=== PATIENT | male | born 1935 | race Caucasian/White ===

== ENCOUNTER → 2016-05-01 | Outpatient (CLI) | payer MEDICARE ==
[~2016-05-01] MED LIST: ACET-822 PO; APIX5TAB PO; ATOR10TA15 PO; OMEP20TA PO; PROC10TA PO; PROM1SUP7 RECTAL; TUMS500C CHEW; ZETI10TA5 PO; ZOFR4TAB3 SL
[2016-05-01 08:57] LABS: POTASSIUM 4.5 MEQ/L (3.5-5.1)
[2016-05-01 09:02] LABS: BICARBONATE 30.8 MEQ/L (21.0-32.0)
[2016-05-01 09:25] LABS: HEMATOCRIT 39.8 % (39.0-51.0); MEAN CELL VOLUME 89.3 FL (80.0-100.0); MEAN CORPUSCULAR HEMOGLOBIN 29.6 PG (27.0-34.0); MEAN CORPUSCULAR HGB CONC 33.2 % (32.0-36.0); PLATELET COUNT 187 TH/MM3 (150-450); RED BLOOD COUNT 4.46 MIL/MM3 (4.50-5.90); RED CELL DISTRIBUTION WIDTH 13.5 % (11.6-17.2); REVIEW FLAG FINAL; WHITE BLOOD COUNT 5.1 TH/MM3 (4.0-11.0)
== END ==
LOC: PLAB 07:01
DX: N28.89 Other specified disorders of kidney and ureter (principal)
CPT/HCPCS: 36415; 80048; 85027

== ENCOUNTER → 2016-07-01 | Outpatient (CLI) | payer MEDICARE ==
[2016-07-01 08:50] LABS: HEMATOCRIT 33.3 % (39.0-51.0); MEAN CELL VOLUME 88.1 FL (80.0-100.0); MEAN CORPUSCULAR HEMOGLOBIN 28.7 PG (27.0-34.0); MEAN CORPUSCULAR HGB CONC 32.5 % (32.0-36.0); PLATELET COUNT 212 TH/MM3 (150-450); RED BLOOD COUNT 3.78 MIL/MM3 (4.50-5.90); RED CELL DISTRIBUTION WIDTH 14.9 % (11.6-17.2); REVIEW FLAG FINAL; WHITE BLOOD COUNT 5.9 TH/MM3 (4.0-11.0)
[2016-07-01 09:07] LABS: BLOOD, URINE NEG (NEG); GLUCOSE,URINE NEG (NEG); KETONE, URINE NEG (NEG); MUCUS URINE FEW /lpf (OCC); NITRITE,URINE NEG (NEG); SQUAMOUS EPITHELIAL CELL URINE <1 /hpf (0-5); URINE COLOR YELLOW (YELLW/STRAW)
[2016-07-01 09:33] LABS: ALKALINE PHOSPHATASE 87 U/L (45-117); ALT (GPT) 25 U/L (12-78); ANION GAP 6 MEQ/L (5-15); AST (GOT) 17 U/L (15-37); BICARBONATE 30.2 MEQ/L (21.0-32.0); BLOOD UREA NITROGEN 14 MG/DL (7-18); CHLORIDE 106 MEQ/L (98-107); GLOMERULAR FILTRATION RATE 55 ML/MIN (>89); GLUCOSE,FASTING 106 MG/DL (74-99); LDL CHOLESTEROL 67 MG/DL (0-99); LDL CHOLESTEROL DIRECT 84 MG/DL (0-99); POTASSIUM 4.5 MEQ/L (3.5-5.1); SODIUM (NA) 142 MEQ/L (136-145); TOTAL BILIRUBIN ADULT 0.3 MG/DL (0.2-1.0); TRANSFERRIN IRON PROFILE 212 MG/DL (200-360)
== END ==
LOC: PLAB 06:54
PROVIDERS: ATTEND Internal Medicine
DX: D64.9 Anemia, unspecified (principal); I10 Essential (primary) hypertension; E78.5 Hyperlipidemia, unspecified
CPT/HCPCS: 36415; 80053; 80061; 81001; 83540; 83550; 83721; 85027

== ENCOUNTER 2016-07-06 15:11 | Observation (INO) | payer MEDICARE ==
[~2016-07-06] VITALS: Ht 172.7 cm; Wt 93.6 kg
[~2016-07-06 15:11] MED LIST changes: -ACET-822 PO; -PROM1SUP7 RECTAL; -TUMS500C CHEW
[2016-07-06 15:21] VITALS: PULSE 66; RESP 19; TEMP 98.4; O2SAT 98
[2016-07-06] MEDS ORDERED: diphenhydrAMINE HCL 50 MG/ML VIAL IV PUSH ONE (15:30)
[2016-07-06] MEDS ORDERED: SODIUM CHLOR 0.9% 1000 ML INJ 1,000 ML IV ONE (15:30)
[2016-07-06] MEDS ORDERED: PROCHLORPERAZINE INJ 10 MG/2 ML VIAL IVS ONE (15:30)
--- NOTE | 2016-07-06 15:54 | PD ---
HPI . Vomiting Chief Complaint: GI Complaint Time Seen by Provider: 15:25 Travel History International Travel<30 days: No Contact w/Intl Traveler<30days: No Traveled to known affect area: No History of Present Illness HPI Patient brought in by his with the chief complaint of vomiting every 30 minutes since 10 AM. The reports that the volume of the emesis is pretty low. She estimates 300-400 cc total. He denies any significant pain. He denies diarrhea. He states his last normal bowel movement was today. He has not been running a fever. Is pertinent recent past medical history is left nephrectomy with dissection of lymph nodes and removal of thrombosis. He was diagnosed with renal cell carcinoma is at the left medial lymph nodes so she renal vein and IVC thrombus in March. He underwent resection about 6 weeks ago. He had done well until today when he started vomiting. DURATION: 6 hours TIMING:Every 15 minutes CONTEXT: 6 weeks status post abdominal surgery ASSOCIATED SYMPTOMS: No associated symptoms PFSH Past Medical History Arthritis: No Asthma: No Autoimmune Disease: No Heart Rhythm Problems: Yes Cancer: No Cardiovascular Problems: Yes High Cholesterol: Yes Chemotherapy: No Chest Pain: No Congestive Heart Failure: No COPD: No Cerebrovascular Accident: No Diabetes: No Diminished Hearing: No Endocrine: No Gastrointestinal Disorders: Yes (HX RECTUS HEMATOMA) GERD: Yes Genitourinary: Yes Headaches: No Hiatal Hernia: Yes Heparin Induced Thrombocytopen: No Hypertension: No Immune Disorder: No Implanted Vascular Access Dvce: No Kidney Stones: Yes Musculoskeletal: No Neurologic: No Psychiatric: No Reproductive: Yes Respiratory: No Migraines: No Radiation Therapy: No Renal Failure: No Seizures: No Sickle Cell Disease: No Sleep Apnea: No Thyroid Disease: No Ulcer: No ?: Not Past Surgical History Abdominal Surgery: No AICD: No Arteriovenous Shunt: No Cardiac Surgery: Yes (LIGATION OF INFERIOR VENA CAVA) Ear Surgery: No Endocrine Surgery: No Eye Surgery: No Genitourinary Surgery: No Gynecologic Surgery: No Insulin Pump: No Neurologic Surgery: No Oral Surgery: No Pacemaker: No Thoracic Surgery: No Tonsillectomy: Yes Other Surgery: Yes Social History Alcohol Use: Yes (ONE DRINK DAILY) Tobacco Use: No (quit 4 years ago ) Substance Use: No Allergies-Medications (Allergen,Severity, Reaction): Coded Allergies: Propofol (Verified Allergy, Severe, NAUSEA AND VOMITING, 07/06/16) Reported Meds & Prescriptions Reported Meds & Active Scripts Active Prochlorperazine Maleate 10 Mg Tab 10 Mg PO Q6H PRN Reported Atorvastatin (Atorvastatin Calcium) 10 Mg Tab 10 Mg PO HS Omeprazole 20 Mg Tab 20 Mg PO DAILY Zetia (Ezetimibe) 10 Mg Tab 10 Mg PO DAILY Review of Systems Except as stated in HPI: all other systems reviewed are Neg General / Constitutional: No: Fever, Chills Cardiovascular: No: Chest Pain or Discomfort Respiratory: No: Shortness of Breath Gastrointestinal: Positive: Nausea, Vomiting, No: Diarrhea, Abdominal Pain Physical Exam Narrative GENERAL: Very pale. SKIN: Warm and dry. HEAD: Atraumatic. Normocephalic. EYES: Pupils equal and round. ENT: No nasal bleeding or discharge. Mucous membranes pink and moist. NECK: Trachea midline. Neck supple CARDIOVASCULAR: Regular rate and rhythm. RESPIRATORY: No accessory muscle use. GASTROINTESTINAL: Abdomen soft, non-tender, nondistended. Healing upper abdominal scar. MUSCULOSKELETAL: No obvious deformities. No edema. NEUROLOGICAL: Awake and alert. No obvious cranial nerve deficits. Motor grossly within normal limits. Normal speech. PSYCHIATRIC: Appropriate mood and affect; insight and judgment normal. Data Data Last Documented VS Vital Signs Date Time Temp Pulse Resp B/P Pulse Ox O2 Delivery O2 Flow Rate FiO2 07/06/16 15:21 98.4 66 19 98 Orders Sodium Chlor 0.9% 1000 Ml Inj (Ns 1000 M (07/06/16 15:30) Prochlorperazine Inj (Compazine Inj) (07/06/16 15:30) Diphenhydramine Inj (Benadryl Inj) (07/06/16 15:30) Complete Blood Count With Diff (07/06/16 15:46) Basic Metabolic Panel (Bmp) (07/06/16 15:46) Abdomen, Flat & Upright (07/06/16 ) Ondansetron Inj (Zofran Inj) (07/06/16 16:45) Labs Laboratory Tests Test 07/06/16 15:54 White Blood Count 5.8 TH/MM3 Red Blood Count 3.97 MIL/MM3 Hemoglobin 11.2 GM/DL Hematocrit 34.3 % Mean Corpuscular Volume 86.6 FL Mean Corpuscular Hemoglobin 28.2 PG Mean Corpuscular Hemoglobin 32.5 % Concent Red Cell Distribution Width 13.7 % Platelet Count 223 TH/MM3 Mean Platelet Volume 8.1 FL Neutrophils (%) (Auto) 70.8 % Lymphocytes (%) (Auto) 21.7 % Monocytes (%) (Auto) 4.7 % Eosinophils (%) (Auto) 1.4 % Basophils (%) (Auto) 1.4 % Neutrophils # (Auto) 4.0 TH/MM3 Lymphocytes # (Auto) 1.3 TH/MM3 Monocytes # (Auto) 0.3 TH/MM3 Eosinophils # (Auto) 0.1 TH/MM3 Basophils # (Auto) 0.1 TH/MM3 CBC Comment DIFF FINAL Differential Comment Sodium Level 142 MEQ/L Potassium Level 4.0 MEQ/L Chloride Level 105 MEQ/L Carbon Dioxide Level 25.3 MEQ/L Anion Gap 12 MEQ/L Blood Urea Nitrogen 20 MG/DL Creatinine 1.30 MG/DL Estimat Glomerular Filtration 53 ML/MIN Rate Random Glucose 154 MG/DL Calcium Level 9.3 MG/DL MDM Medical Decision Making Medical Screen Exam Complete: Yes Emergency Medical Condition: Yes Differential Diagnosis Differential diagnosis includes but is not limited to viral gastritis, food poisoning, pancreatitis, pneumonia, hepatitis, acute coronary syndrome, bowel obstruction Narrative Course Patient presents with frequent emesis. He has had recent surgery. The possibility of bowel obstruction needs to be excluded. CBC & BMP Diagram 07/06/16 15:54 Abdominal x-ray is negative for obstruction. The x-ray was independently viewed by me. The patient was treated here initially with Compazine and Benadryl. He continued to have nausea. He was subsequently treated with Zofran. He states he now feels better and is ready to go home. Diagnosis Primary Impression: Nausea & vomiting Qualified Code: R11.2 - Non-intractable vomiting with nausea, unspecified vomiting type Patient Instructions: Acute Nausea and Vomiting (DC), General Instructions Med/Other Pt SpecificInfo: Prescription(s) given Scripts Ondansetron Odt (Zofran Odt)4 Mg Tab4 Mg SL Q6HR PRN (Nausea/Vomiting) #30 TAB Ref 0 Prov:Grace Kendrick MD 07/06/16 Prochlorperazine Maleate 10 Mg Tab10 Mg PO Q6H PRN (NAUSEA OR VOMITING) #40 TAB Ref 0 Prov:Grace Kendrick MD 07/06/16 Disposition: 01 DISCHARGE HOME Condition: Stable Grace Kendrick MD Jul 06, 2016 15:54
[2016-07-06 16:03] LABS: BASOPHIL # 0.1 TH/MM3 (0-0.2); BASOPHIL % 1.4 % (0.0-2.0); EOSINOPHIL # 0.1 TH/MM3 (0-0.4); EOSINOPHIL % 1.4 % (0.0-4.0); HEMATOCRIT 34.3 % (39.0-51.0); HEMO FLAGS DIFF FINAL; LYMPH % 21.7 % (9.0-44.0); LYMPHOCYTE # 1.3 TH/MM3 (1.0-4.8); MEAN CELL VOLUME 86.6 FL (80.0-100.0); MEAN CORPUSCULAR HEMOGLOBIN 28.2 PG (27.0-34.0); MEAN CORPUSCULAR HGB CONC 32.5 % (32.0-36.0); MONO % 4.7 % (0.0-8.0); NEUT % 70.8 % (16.0-70.0); PLATELET COUNT 223 TH/MM3 (150-450); RED BLOOD COUNT 3.97 MIL/MM3 (4.50-5.90); RED CELL DISTRIBUTION WIDTH 13.7 % (11.6-17.2); WHITE BLOOD COUNT 5.8 TH/MM3 (4.0-11.0)
[2016-07-06 16:19] LABS: BICARBONATE 25.3 MEQ/L (21.0-32.0)
--- NOTE | 2016-07-06 16:33 | RADHPO ---
EXAM DATE/TIME: 07/06/2016 15:50 [facility] COMPARISON: ABDOMEN FLAT & UPRIGHT, August 10, 2013, 17:48. INDICATIONS : Nausea and vomiting today. Five weeks post op left side nephrectomy. MEDICAL HISTORY : None. SURGICAL HISTORY : Nephrectomy, left. ENCOUNTER: Initial ACUITY: 1 day PAIN SCORE: 0/10 LOCATION: Bilateral abdomen. FINDINGS: 2 AP supine views of the abdomen were obtained as well as an erect view demonstrates gas and stool no richard segmentally in the colon. There is no free air or mass effect. Multiple surgical clips and staple s in the upper central abdomen. The lung bases are clear. The bony structures are intact. There are v ascular calcifications. CONCLUSION: Nonspecific, nonobstructed bowel gas pattern. Ti Panchal MD on July 06, 2016 at 16:30 Board Certified Radiologist. This report was verified electronically.
[2016-07-06] MEDS ORDERED: ONDANSETRON HCL 4 MG/2 ML VIAL IV PUSH ONE ×2 (16:45→18:15)
[2016-07-06] MEDS ORDERED: PROC10TA PO (17:52)
[2016-07-06] MEDS ORDERED: ZOFR4TAB3 SL (17:52)
[2016-07-06 18:17] VITALS: BP 154/63; PULSE 75; RESP 16; O2SAT 99
[2016-07-06] MEDS ORDERED: hydrOXYzine HCL 50 MG/ML VIAL IM ONE (18:45)
[2016-07-06 19:00] VITALS: BP 157/80; PULSE 89; RESP 16; TEMP 98.1; O2SAT 99
[2016-07-06] MEDS ORDERED: SODIUM CHLORIDE 0.9% FLUSH 5 ML FLUSH FLUSH PRN (19:15)
[2016-07-06] MEDS ORDERED: ACETAMINOPHEN 325 MG TAB PO PRN (19:15)
[2016-07-06] MEDS ORDERED: MORPHINE SULFATE 4 MG/ML INJ IV PRN (19:15)
[2016-07-06] MEDS ORDERED: ACETAMINOPHEN/HYDROcodone 325 MG/5 MG TAB PO PRN (19:15)
[2016-07-06] MEDS ORDERED: BISACODYL 10 MG SUPP PR PRN (19:15)
[2016-07-06] MEDS ORDERED: ONDANSETRON HCL 4 MG/2 ML VIAL IVP PRN (19:15)
[2016-07-06] MEDS ORDERED: PROCHLORPERAZINE INJ 10 MG/2 ML VIAL IVS PRN (19:30)
[2016-07-06] MEDS: SODIUM CHLOR 0.9% 1000 ML INJ 1,000 ML IV SCH (21:32)
[2016-07-06] MEDS: PANTOPRAZOLE SODIUM 40 MG VIAL IV PUSH SCH (21:32)
[2016-07-06 21:33] VITALS: BP 167/82; PULSE 92; RESP 16; TEMP 97.7; O2SAT 94
[2016-07-06] MEDS: SODIUM CHLORIDE 0.9% FLUSH 5 ML FLUSH FLUSH SCH (21:33)
[2016-07-07 00:43] VITALS: BP 146/97; PULSE 98; RESP 18; TEMP 98.1; O2SAT 93
[2016-07-07] MEDS: SODIUM CHLOR 0.9% 1000 ML INJ 1,000 ML IV SCH (06:00)
[2016-07-07 06:49] LABS: CHLORIDE 107 MEQ/L (98-107); POTASSIUM 4.1 MEQ/L (3.5-5.1); SODIUM (NA) 143 MEQ/L (136-145)
[2016-07-07 06:54] LABS: ANION GAP 7 MEQ/L (5-15); BICARBONATE 28.6 MEQ/L (21.0-32.0); BLOOD UREA NITROGEN 16 MG/DL (7-18)
[2016-07-07 06:56] LABS: AUTOMATED NEUTROPHIL # 4.4 TH/MM3 (1.8-7.7); BASOPHIL % 0.6 % (0.0-2.0); EOSINOPHIL % 0.3 % (0.0-4.0); HEMATOCRIT 31.5 % (39.0-51.0); HEMO FLAGS DIFF FINAL; LYMPH % 23.5 % (9.0-44.0); LYMPHOCYTE # 1.5 TH/MM3 (1.0-4.8); MEAN CELL VOLUME 87.6 FL (80.0-100.0); MEAN CORPUSCULAR HEMOGLOBIN 28.9 PG (27.0-34.0); MONO % 7.3 % (0.0-8.0); NEUT % 68.3 % (16.0-70.0); PLATELET COUNT 219 TH/MM3 (150-450); RED CELL DISTRIBUTION WIDTH 14.6 % (11.6-17.2); WHITE BLOOD COUNT 6.4 TH/MM3 (4.0-11.0)
[2016-07-07 06:57] LABS: ALT (GPT) 17 U/L (12-78); AST (GOT) 13 U/L (15-37); GLOMERULAR FILTRATION RATE 65 ML/MIN (>89)
[2016-07-07 06:58] LABS: TOTAL BILIRUBIN ADULT 0.5 MG/DL (0.2-1.0)
[2016-07-07 07:00] LABS: ALKALINE PHOSPHATASE 76 U/L (45-117)
[2016-07-07] MEDS: PANTOPRAZOLE SODIUM 40 MG VIAL IV PUSH SCH (08:00)
[2016-07-07 08:27] VITALS: BP 142/77; PULSE 72; RESP 17; TEMP 98.7; O2SAT 92
[2016-07-07] MEDS: SODIUM CHLORIDE 0.9% FLUSH 5 ML FLUSH FLUSH SCH (09:00)
--- NOTE | 2016-07-07 09:33 | HHI.HP ---
[facility] [place] [facility] Lawrence Mata MD Admission Diagnosis intractable vomiting Diagnoses: (1) Nausea & vomiting Diagnosis: Principal Chief Complaint: Nausea vomiting Travel History International Travel<30 Days: No Contact w/Intl Traveler <30 Da: No Traveled to Known Affected Are: No History of Present Illness 81 year-old male with known history of renal adenocarcinoma, hyperlipidemia, hypertension, episodic nausea vomiting, gastroesophageal reflux who presented to the hospital because of recurrent nausea vomiting. Patient states that he does get episodes of this at least 1-2 times a year. The patient started 10 AM yesterday morning with nausea vomiting and it was relentless throughout the day so he came to emergency department for evaluation. Patient was given Zofran, Compazine, Benadryl in the emergency department with relief. However when he stood up to go home last evening he had another episode of nausea vomiting at that time it was requested that the patient be observed overnight in the hospital. Laboratory studies did not indicate any electrolyte abnormalities. Upon evaluating the patient this morning he is doing quite well. Very pleasant gentleman who finished breakfast without any complications. He is requesting go home. Review of Systems Constitutional: DENIES: Diaphoretic episodes, Fatigue, Fever, Weight gain, Weight loss, Chills, Dizziness, Change in appetite, Night Sweats Eyes: DENIES: Blurred vision, Diplopia, Eye inflammation, Eye pain, Vision loss , Double Vision Ears, nose, mouth, throat: DENIES: Vertigo, Nasal discharge, Throat pain, Ear Pain, Running Nose, Sinus Pain Respiratory: DENIES: Apneas, Cough, Snoring, Wheezing, Hemoptysis, Sputum production, Shortness of breath Cardiovascular: DENIES: Chest pain, Palpitations, Syncope, Dyspnea on Exertion , PND, Lower Extremity Edema, Orthopnea, Claudication Gastrointestinal: COMPLAINS OF: Nausea, Vomiting, DENIES: Abdominal pain, Black stools, Bloody stools, Constipation, Diarrhea, Difficulty Swallowing, Anorexia Neurologic: DENIES: Abnormal gait, Headache, Localized weakness, Paresthesias, Seizures, Speech Problems, Tremor, Poor Balance Past Family Social History Past Medical History Hypertension Hyperlipidemia Renal adenocarcinoma Gastroesophageal reflux History of DVT and PE Past Surgical History Tonsillectomy Left nephrectomy Ligation 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 Unknown cause of Social History Patient quit smoking a pipe 5 years ago, quit smoking cigarettes 40 years ago. Does drink 1 alcoholic beverage daily. Denies any illicit drugs Physical Exam Vital Signs Vital Signs Date Time Temp Pulse Resp B/P Pulse Ox O2 Delivery O2 Flow Rate FiO2 07/07/16 08:27 98.7 72 17 142/77 92 07/07/16 00:43 98.1 98 18 146/97 93 07/06/16 21:33 97.7 92 16 167/82 94 07/06/16 19:00 98.1 89 16 157/80 99 Room Air 07/06/16 18:17 75 16 154/63 99 Room Air 07/06/16 15:21 98.4 66 19 98 Physical Exam GENERAL: Well-developed, well-nourished, in no acute distress. alert and orientated HEENT: Head is normocephalic without any lesions or masses noted. Facial features are symmetric. Eyes: Pupils equal round reactive to light. Extraocular muscles are intact. Conjunctivae were clear. Oropharyngeal: Pharynx without any erythema edema. Tongue is midline without deviation. Buccal mucosa is moist without any masses or lesions NECK: Supple without any masses. Trachea midline no deviation. No JVD, no bruits are appreciated CARDIAC: Regular rhythm, regular rate. S1/S2 are heard. No murmurs gallops or rubs. LUNGS: Clear to auscultation bilaterally. No wheeze, rhonchi or rales. No use of accessory muscles on inspiration or expiration. ABDOMEN: Soft, nontender. Nondistended. Bowel sounds heard in all 4 quadrants. No organomegaly or masses. Negative rebound, negative guarding EXTREMITIES: No edema, pulses are equal bilaterally. No cyanosis or clubbing NEUROLOGY: Mood and affect appear appropriate. Cranial nerves II through XII grossly intact. Muscle strength 5/5 in upper and lower extremities bilaterally. Deep tendon reflexes are 2+ in upper and lower extremities bilaterally. Laboratory Laboratory Tests Test 07/06/16 07/07/16 15:54 06:21 White Blood Count 5.8 6.4 Red Blood Count 3.97 3.60 Hemoglobin 11.2 10.4 Hematocrit 34.3 31.5 Mean Corpuscular Volume 86.6 87.6 Mean Corpuscular Hemoglobin 28.2 28.9 Mean Corpuscular Hemoglobin 32.5 33.0 Concent Red Cell Distribution Width 13.7 14.6 Platelet Count 223 219 Mean Platelet Volume 8.1 8.0 Neutrophils (%) (Auto) 70.8 68.3 Lymphocytes (%) (Auto) 21.7 23.5 Monocytes (%) (Auto) 4.7 7.3 Eosinophils (%) (Auto) 1.4 0.3 Basophils (%) (Auto) 1.4 0.6 Neutrophils # (Auto) 4.0 4.4 Lymphocytes # (Auto) 1.3 1.5 Monocytes # (Auto) 0.3 0.5 Eosinophils # (Auto) 0.1 0.0 Basophils # (Auto) 0.1 0.0 CBC Comment DIFF FINAL DIFF FINAL Differential Comment Sodium Level 142 143 Potassium Level 4.0 4.1 Chloride Level 105 107 Carbon Dioxide Level 25.3 28.6 Anion Gap 12 7 Blood Urea Nitrogen 20 16 Creatinine 1.30 1.10 Estimat Glomerular Filtration 53 65 Rate Random Glucose 154 111 Calcium Level 9.3 8.7 Total Bilirubin 0.5 Aspartate Amino Transf 13 (AST/SGOT) Alanine Aminotransferase 17 (ALT/SGPT) Alkaline Phosphatase 76 Total Protein 6.6 Albumin 3.1 Result Diagram: 07/07/1662007/07/16620 Imaging Last Impressions Abdomen X-Ray 07/06/16 0000 Signed Impressions: Service Date/Time: Wednesday, July 06, 2016 15:50 - CONCLUSION: Nonspecific, nonobstructed bowel gas pattern. Ti Panchal MD Assessment and Plan Assessment and Plan Nausea vomiting, recurrent: Resolved at this time. Status post Zofran and Compazine. Advance diet as tolerated. Discussed with the patient he is refraining from alcohol use, care is his symptoms could be related to alcohol use, his history of Tabares's esophagus. We offered the patient GI consultation and possible endoscopy. He is deferring at this time. 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 Hyperlipidemia: Continue home medications DVT prevention: Sequential compression devices Written by Huy Ortiz PA-C, acting as scribe for Dr. Hamilton on 07/07/16 at 1045. The documentation accurately reflects the work and decisions performed face-to- face by Dr. Hamilton on 07/07/16 at 1045. Discharge disposition Discharge home in stable condition Activity: Ad kulwinder. Diet: Healthy heart diet as tolerated Medications per medication reconciliation Follow-up primary medical doctor in one week Problem Qualifiers (1) Nausea & vomiting: Qualified Code: R11.2 - Non-intractable vomiting with nausea, unspecified vomiting type Huy Ortiz Jul 07, 2016 09:32 Ivory Hamilton MD Jul 07, 2016 16:57
--- NOTE | 2016-07-07 09:33 | HHI.DCPOC ---
Discharge Care Plan Diagnosis: (1) Nausea & vomiting Goals to Promote Your Health * To prevent worsening of your condition and complications * To maintain your health at the optimal level Directions to Meet Your Goals Take your medications as prescribed Follow your dietary instruction Follow activity as directed Keep your appointments as scheduled Take your immunizations and boosters as scheduled If your symptoms worsen call your PCP, if no PCP go to Urgent Care Center or Emergency Room Smoking is Dangerous to Your Health. Avoid second hand smoke Call the 24-hour hour crisis hotline for domestic abuse at Huy Ortiz Jul 07, 2016 09:33
== END 2016-07-07 13:01 | disposition home or self-care (01) ==
LOC: PHED 15:11 → PHEDA 19:13 → UNDOADMOB 19:13 → PHEDA 19:52 → PH3B 19:52 → UNDODISOB 07-07 13:01
PROVIDERS: ADMIT Hospitalist; ATTEND Hospitalist
DX: R11.2 Nausea with vomiting, unspecified (principal); C64.9 Malignant neoplasm of unspecified kidney, except renal pelvis; I10 Essential (primary) hypertension; E78.5 Hyperlipidemia, unspecified; E78.00 Pure hypercholesterolemia, unspecified; K21.9 Gastro-esophageal reflux disease without esophagitis; I82.220 Acute embolism and thrombosis of inferior vena cava; Z86.711 Personal history of pulmonary embolism; Z87.442 Personal history of urinary calculi; Z87.891 Personal history of nicotine dependence
CPT/HCPCS: 74020; 80048; 80053; 85025; 96361; 96372; 96374; 96375; 96376; 99285; C9113; G0378; J0780; J1200; J2405; J3410; J7030

== ENCOUNTER 2016-07-11 12:56 | Emergency (ER) | payer MEDICARE ==
[~2016-07-11] VITALS: Ht 172.7 cm; Wt 95.0 kg
[~2016-07-11 12:56] MED LIST changes: -APIX5TAB PO
[2016-07-11 13:10] VITALS: BP 166/80; PULSE 61; RESP 18; TEMP 97.4; O2SAT 100
[2016-07-11 14:45] VITALS: BP 158/81; PULSE 75; RESP 16; O2SAT 98
[2016-07-11] MEDS ORDERED: SODIUM CHLOR 0.9% 1000 ML INJ 1,000 ML IV ONE (14:45)
[2016-07-11] MEDS ORDERED: ONDANSETRON HCL 4 MG/2 ML VIAL IVP ONE ×2 (14:45→16:30)
--- NOTE | 2016-07-11 14:45 | PD ---
HPI Chief Complaint: GI Complaint Time Seen by Provider: 14:32 Travel History International Travel<30 days: No Contact w/Intl Traveler<30days: No Traveled to known affect area: No History of Present Illness HPI This patient complains of nausea and vomiting. Duration one day. Severity is moderate. This morning he started having nausea and has vomited 7 times during the course the day. No diarrhea. He had a bowel movement yesterday. He is not having abdominal pain. He has history of intermittent spells of unexplained nausea and vomiting. He's been seen here multiple times and follows with varnish supervisor regularly. According to his is physicians do not know the cause. He had a nephrectomy in May of this year but has recovered nicely. He is not on chemotherapy. He's had no fever. Symptoms have no alleviating factors PFSH Past Medical History Arthritis: No Asthma: No Autoimmune Disease: No Heart Rhythm Problems: Yes Cancer: Yes (RENAL MASS) Cardiovascular Problems: Yes High Cholesterol: Yes Chemotherapy: No Chest Pain: No Congestive Heart Failure: No COPD: No Cerebrovascular Accident: No Diabetes: No Diminished Hearing: No Endocrine: No Gastrointestinal Disorders: Yes (HX RECTUS HEMATOMA) GERD: Yes Genitourinary: Yes Headaches: No Hiatal Hernia: Yes Heparin Induced Thrombocytopen: No Hypertension: Yes Immune Disorder: No Implanted Vascular Access Dvce: No Kidney Stones: Yes Musculoskeletal: No Neurologic: Yes Psychiatric: No Reproductive: Yes Respiratory: No Immunizations Current: Yes Migraines: No Radiation Therapy: No Renal Failure: No Seizures: No Sickle Cell Disease: No Sleep Apnea: No Thyroid Disease: No Ulcer: No Past Surgical History Abdominal Surgery: No AICD: No Arteriovenous Shunt: No Cardiac Surgery: Yes (LIGATION OF INFERIOR VENA CAVA) Ear Surgery: No Endocrine Surgery: No Eye Surgery: No Genitourinary Surgery: No Gynecologic Surgery: No Insulin Pump: No Neurologic Surgery: No Oral Surgery: No Pacemaker: No Thoracic Surgery: Yes (VENA CAVA THROMBUS REMOVAL) Tonsillectomy: Yes Other Surgery: Yes (LEFT NEPHRECTOMY, RENAL VEIN REMOVAL) Social History Alcohol Use: Yes (ONE DRINK DAILY) Tobacco Use: No (quit 4 years ago ) Substance Use: No Allergies-Medications (Allergen,Severity, Reaction): Coded Allergies: Propofol (Verified Allergy, Severe, PT DENIES, 07/11/16) Reported Meds & Prescriptions Reported Meds & Active Scripts Active Zofran Odt (Ondansetron Odt) 4 Mg Tab 4 Mg SL Q6HR PRN Prochlorperazine Maleate 10 Mg Tab 10 Mg PO Q6H PRN Reported Atorvastatin (Atorvastatin Calcium) 10 Mg Tab 10 Mg PO HS Omeprazole 20 Mg Tab 20 Mg PO DAILY Zetia (Ezetimibe) 10 Mg Tab 10 Mg PO DAILY Review of Systems General / Constitutional: No: Fever Eyes: No: Visual changes HENT: No: Headaches Cardiovascular: No: Chest Pain or Discomfort Respiratory: No: Shortness of Breath Gastrointestinal: Positive: Nausea, Vomiting, No: Abdominal Pain Genitourinary: No: Dysuria Musculoskeletal: No: Pain Skin: No Rash Neurologic: No: Weakness Psychiatric: No: Depression Endocrine: No: Polydipsia Hematologic/Lymphatic: No: Easy Bruising Physical Exam Narrative GENERAL: Well-nourished, well-developed patient with nausea SKIN: Warm and dry. HEAD: Atraumatic. Normocephalic. EYES: Pupils equal and round. No scleral icterus. No injection or drainage. ENT: No nasal bleeding or discharge. Mucous membranes pink and moist. NECK: Trachea midline. No JVD. CARDIOVASCULAR: Regular rate and rhythm. No murmur appreciated. RESPIRATORY: No accessory muscle use. Clear to auscultation. Breath sounds equal bilaterally. GASTROINTESTINAL: Abdomen soft, non-tender, nondistended. Hepatic and splenic margins not palpable. MUSCULOSKELETAL: No obvious deformities. No clubbing. No cyanosis. No edema. NEUROLOGICAL: Awake and alert. No obvious cranial nerve deficits. Motor grossly within normal limits. Normal speech. PSYCHIATRIC: Appropriate mood and affect; insight and judgment normal. Data Data Last Documented VS Vital Signs Date Time Temp Pulse Resp B/P Pulse Ox O2 Delivery O2 Flow Rate FiO2 07/11/16 15:45 72 16 167/85 97 Room Air 07/11/16 13:10 97.4 Orders Iv Access Insert/Monitor (07/11/16 14:41) Complete Blood Count With Diff (07/11/16 14:41) Comprehensive Metabolic Panel (07/11/16 14:41) Ondansetron Inj (Zofran Inj) (07/11/16 14:45) Sodium Chlor 0.9% 1000 Ml Inj (Ns 1000 M (07/11/16 14:45) Labs Laboratory Tests Test 07/11/16 14:50 White Blood Count 5.7 TH/MM3 Red Blood Count 4.10 MIL/MM3 Hemoglobin 11.8 GM/DL Hematocrit 35.4 % Mean Corpuscular Volume 86.3 FL Mean Corpuscular Hemoglobin 28.7 PG Mean Corpuscular Hemoglobin 33.2 % Concent Red Cell Distribution Width 13.9 % Platelet Count 211 TH/MM3 Mean Platelet Volume 7.5 FL Neutrophils (%) (Auto) 71.0 % Lymphocytes (%) (Auto) 21.4 % Monocytes (%) (Auto) 5.9 % Eosinophils (%) (Auto) 1.3 % Basophils (%) (Auto) 0.4 % Neutrophils # (Auto) 4.1 TH/MM3 Lymphocytes # (Auto) 1.2 TH/MM3 Monocytes # (Auto) 0.3 TH/MM3 Eosinophils # (Auto) 0.1 TH/MM3 Basophils # (Auto) 0.0 TH/MM3 CBC Comment DIFF FINAL Differential Comment Sodium Level 141 MEQ/L Potassium Level 3.9 MEQ/L Chloride Level 106 MEQ/L Carbon Dioxide Level 25.1 MEQ/L Anion Gap 10 MEQ/L Blood Urea Nitrogen 22 MG/DL Creatinine 1.20 MG/DL Estimat Glomerular Filtration 58 ML/MIN Rate Random Glucose 144 MG/DL Calcium Level 9.3 MG/DL Total Bilirubin 0.7 MG/DL Aspartate Amino Transf 16 U/L (AST/SGOT) Alanine Aminotransferase 19 U/L (ALT/SGPT) Alkaline Phosphatase 82 U/L Total Protein 7.6 GM/DL Albumin 3.7 GM/DL MDM Medical Decision Making Medical Screen Exam Complete: Yes Emergency Medical Condition: Yes Medical Record Reviewed: Yes Differential Diagnosis Gastroenteritis, food poisoning, colitis, ileus Narrative Course I have reviewed the patient's electronic medical record. Patient was hospitalized a week ago for the same symptoms. His electrolytes were normal at that time IV placed I gave him 1 L normal saline IV and IV Zofran CBC is normal Metabolic profile is normal LFTs are normal Abdomen is soft and benign and nontender On recheck he is doing well. No episodes of vomiting here in the ER. He has Zofran at home. I prescribed him some Phenergan suppositories. Warned about potential sedation Diagnosis Primary Impression: Nausea & vomiting Qualified Code: G43.A0 - Non-intractable cyclical vomiting with nausea Departure Forms: Tests/Procedures Additional Instructions: The patient was advised to follow up with their physician and return if they worsen. I have recommended clear liquids for 24 hours, then gradually advance as tolerated. The patient was warned about potential sedation for the medications they will receive on prescription. Med/Other Pt SpecificInfo: Prescription(s) given Scripts Promethazine Supp (Phenergan Supp)25 Mg Supp25 Mg RECTAL Q6H PRN (NAUSEA OR VOMITING) #15 SUPP Ref 0 Prov:Huy Parikh MD 07/11/16 Disposition: DISCHARGE HOME Condition: Stable Huy Parikh MD Jul 11, 2016 14:45
[2016-07-11 14:59] LABS: AUTOMATED NEUTROPHIL # 4.1 TH/MM3 (1.8-7.7); BASOPHIL % 0.4 % (0.0-2.0); EOSINOPHIL # 0.1 TH/MM3 (0-0.4); EOSINOPHIL % 1.3 % (0.0-4.0); HEMATOCRIT 35.4 % (39.0-51.0); HEMO FLAGS DIFF FINAL; LYMPH % 21.4 % (9.0-44.0); LYMPHOCYTE # 1.2 TH/MM3 (1.0-4.8); MEAN CELL VOLUME 86.3 FL (80.0-100.0); MEAN CORPUSCULAR HEMOGLOBIN 28.7 PG (27.0-34.0); MEAN CORPUSCULAR HGB CONC 33.2 % (32.0-36.0); MONO % 5.9 % (0.0-8.0); PLATELET COUNT 211 TH/MM3 (150-450); RED CELL DISTRIBUTION WIDTH 13.9 % (11.6-17.2); WHITE BLOOD COUNT 5.7 TH/MM3 (4.0-11.0)
[2016-07-11 15:07] LABS: CHLORIDE 106 MEQ/L (98-107); POTASSIUM 3.9 MEQ/L (3.5-5.1); SODIUM (NA) 141 MEQ/L (136-145)
[2016-07-11 15:11] LABS: ANION GAP 10 MEQ/L (5-15); BICARBONATE 25.1 MEQ/L (21.0-32.0); BLOOD UREA NITROGEN 22 MG/DL (7-18)
[2016-07-11 15:14] LABS: ALT (GPT) 19 U/L (12-78); AST (GOT) 16 U/L (15-37); GLOMERULAR FILTRATION RATE 58 ML/MIN (>89)
[2016-07-11 15:16] LABS: TOTAL BILIRUBIN ADULT 0.7 MG/DL (0.2-1.0)
[2016-07-11 15:17] LABS: ALKALINE PHOSPHATASE 82 U/L (45-117)
[2016-07-11 15:45] VITALS: BP 167/85; PULSE 72; RESP 16; O2SAT 97
[2016-07-11] MEDS ORDERED: PROM1SUP7 RECTAL (16:03)
[2016-07-11] MEDS ORDERED: PROCHLORPERAZINE INJ 10 MG/2 ML VIAL IVS ONE (16:30)
[2016-07-11 17:33] VITALS: BP 162/88; PULSE 73; RESP 16; O2SAT 98
== END 2016-07-11 17:35 | disposition home or self-care (01) ==
LOC: PHED 12:56
DX: R11.2 Nausea with vomiting, unspecified (principal); Z87.442 Personal history of urinary calculi; I10 Essential (primary) hypertension
CPT/HCPCS: 80053; 85025; 96361; 96374; 96375; 96376; 99284; J0780; J2405; J7030

== ENCOUNTER 2016-10-06 07:56 | Observation (INO) | payer MEDICARE ==
[~2016-10-06] VITALS: Ht 172.7 cm; Wt 97.7 kg
[~2016-10-06 07:56] MED LIST changes: -PROC10TA PO; +PROM1SUP7 RECTAL
[2016-10-06 07:59] VITALS: BP 151/68; PULSE 60; RESP 18; TEMP 97.5; O2SAT 100
[2016-10-06] MEDS ORDERED: TUMS500C CHEW (08:14)
[2016-10-06] MEDS ORDERED: ACET-822 PO (08:14)
--- NOTE | 2016-10-06 08:23 | PD ---
HPI Chief Complaint: Abdominal Pain Time Seen by Provider: 08:16 Travel History International Travel<30 days: No Contact w/Intl Traveler<30days: No Traveled to known affect area: No History of Present Illness HPI This 81-year-old male presents with complaint of vomiting. He started vomiting around 2:00 this morning and has been vomiting since. In some mild abdominal pain. There has not been any diarrhea. He does get bouts of vomiting of undetermined etiology. He has a history of renal carcinoma. He had a nephrectomy in May of this year at [facility]. He recently had radiation to his left hip. He had a kyphoplasty at T7 last Friday at [facility] with a biopsy. He has not gotten the results of the biopsy. PFSH Past Medical History Arthritis: No Asthma: No Autoimmune Disease: No Heart Rhythm Problems: Yes Cancer: Yes (RENAL MASS) Cardiovascular Problems: Yes High Cholesterol: Yes Chemotherapy: No Chest Pain: No Congestive Heart Failure: No COPD: No Cerebrovascular Accident: No Diabetes: No Diminished Hearing: No Endocrine: No Gastrointestinal Disorders: Yes (HX RECTUS HEMATOMA) GERD: Yes (barretts esophagus) Genitourinary: Yes Headaches: No Hiatal Hernia: Yes Heparin Induced Thrombocytopen: No Hypertension: Yes Immune Disorder: No Implanted Vascular Access Dvce: No Kidney Stones: Yes Musculoskeletal: No Neurologic: Yes Psychiatric: No Reproductive: Yes Respiratory: No Immunizations Current: Yes Migraines: No Radiation Therapy: No Renal Failure: No Seizures: No Sickle Cell Disease: No Sleep Apnea: No Thyroid Disease: No Ulcer: No Influenza Vaccination: No ?: Not Past Surgical History Abdominal Surgery: No AICD: No Arteriovenous Shunt: No Cardiac Surgery: Yes (LIGATION OF INFERIOR VENA CAVA) Ear Surgery: No Endocrine Surgery: No Eye Surgery: No Genitourinary Surgery: No Gynecologic Surgery: No Insulin Pump: No Neurologic Surgery: Yes (kyphoplasty) Oral Surgery: No Pacemaker: No Thoracic Surgery: Yes (VENA CAVA THROMBUS REMOVAL) Tonsillectomy: Yes Other Surgery: Yes (LEFT NEPHRECTOMY, RENAL VEIN REMOVAL) Social History Alcohol Use: Yes (ONE DRINK DAILY) Tobacco Use: No (quit 4 years ago ) Substance Use: No Allergies-Medications (Allergen,Severity, Reaction): Coded Allergies: Propofol (Verified Allergy, Severe, PT DENIES, 10/06/16) Reported Meds & Prescriptions Reported Meds & Active Scripts Active Zofran Odt (Ondansetron Odt) 4 Mg Tab 4 Mg SL Q6HR PRN Reported Tylenol Extra Strength (Acetaminophen) 500 Mg Tablet 2 Tab PO DIRECTED PRN Tums (Calcium Carbonate (Antacid)) 500 Mg Chew 500 Mg CHEW PRN Atorvastatin (Atorvastatin Calcium) 10 Mg Tab 10 Mg PO HS Omeprazole 20 Mg Tab 20 Mg PO DAILY Review of Systems General / Constitutional: No: Fever, Chills Eyes: No: Diploplia, Blurred Vision HENT: No: Headaches, Vertigo Cardiovascular: No: Chest Pain or Discomfort, Palpitations Respiratory: No: Cough, Shortness of Breath Gastrointestinal: Positive: Nausea, Vomiting, Abdominal Pain, No: Diarrhea Genitourinary: No: Frequency, Dysuria Musculoskeletal: No: Myalgias, Arthralgias Skin: No Rash Hematologic/Lymphatic: No: Easy Bruising Physical Exam Narrative GENERAL: Well-developed male SKIN: Focused skin assessment warm/dry. HEAD: Atraumatic. Normocephalic. EYES: Pupils equal and round. No scleral icterus. No injection or drainage. ENT: No nasal bleeding or discharge. Mucous membranes pink and moist. NECK: Trachea midline. No JVD. CARDIOVASCULAR: Regular rate and rhythm. No murmur appreciated. RESPIRATORY: No accessory muscle use. Clear to auscultation. Breath sounds equal bilaterally. GASTROINTESTINAL: Abdomen soft, non-tender, nondistended. Hepatic and splenic margins not palpable. MUSCULOSKELETAL: No obvious deformities. No clubbing. No cyanosis. No edema. NEUROLOGICAL: Awake and alert. No obvious cranial nerve deficits. Motor grossly within normal limits. Normal speech. PSYCHIATRIC: Appropriate mood and affect; insight and judgment normal. Data Data Last Documented VS Vital Signs Date Time Temp Pulse Resp B/P Pulse Ox O2 Delivery O2 Flow Rate FiO2 10/06/16 09:39 57 18 173/88 97 Room Air 10/06/16 07:59 97.5 Orders Complete Blood Count With Diff (10/06/16 08:16) Comprehensive Metabolic Panel (10/06/16 08:16) Urinalysis - C+S If Indicated (10/06/16 08:16) Sodium Chlor 0.9% 1000 Ml Inj (Ns 1000 M (10/06/16 08:30) Ondansetron Inj (Zofran Inj) (10/06/16 08:30) Prochlorperazine Inj (Compazine Inj) (10/06/16 09:00) Diphenhydramine Inj (Benadryl Inj) (10/06/16 09:00) Non-Formulary Drug (10/06/16 10:00) Sodium Chlor 0.9% 1000 Ml Inj (Ns 1000 M (10/06/16 10:15) Prochlorperazine Inj (Compazine Inj) (10/06/16 10:15) Diphenhydramine Inj (Benadryl Inj) (10/06/16 10:15) Ct Abd/Pel W Iv Contrast(Rout) (10/06/16 10:24) Iodixanol 320 Inj (Rad Ct) (Visipaque 32 (10/06/16 11:06) Labs Laboratory Tests Test 10/06/16 08:30 White Blood Count 6.5 TH/MM3 Red Blood Count 4.17 MIL/MM3 Hemoglobin 12.0 GM/DL Hematocrit 35.4 % Mean Corpuscular Volume 85.0 FL Mean Corpuscular Hemoglobin 28.8 PG Mean Corpuscular Hemoglobin 33.9 % Concent Red Cell Distribution Width 14.1 % Platelet Count 125 TH/MM3 Mean Platelet Volume 8.1 FL Neutrophils (%) (Auto) 81.4 % Lymphocytes (%) (Auto) 12.2 % Monocytes (%) (Auto) 3.8 % Eosinophils (%) (Auto) 0.3 % Basophils (%) (Auto) 2.3 % Neutrophils # (Auto) 5.4 TH/MM3 Lymphocytes # (Auto) 0.8 TH/MM3 Monocytes # (Auto) 0.2 TH/MM3 Eosinophils # (Auto) 0.0 TH/MM3 Basophils # (Auto) 0.1 TH/MM3 CBC Comment DIFF FINAL Differential Comment Sodium Level 138 MEQ/L Potassium Level 4.2 MEQ/L Chloride Level 103 MEQ/L Carbon Dioxide Level 27.1 MEQ/L Anion Gap 8 MEQ/L Blood Urea Nitrogen 24 MG/DL Creatinine 1.10 MG/DL Estimat Glomerular Filtration 65 ML/MIN Rate Random Glucose 170 MG/DL Calcium Level 9.7 MG/DL Total Bilirubin 0.6 MG/DL Aspartate Amino Transf 22 U/L (AST/SGOT) Alanine Aminotransferase 24 U/L (ALT/SGPT) Alkaline Phosphatase 100 U/L Total Protein 8.0 GM/DL Albumin 3.9 GM/DL MDM Medical Decision Making Medical Screen Exam Complete: Yes Emergency Medical Condition: Yes Medical Record Reviewed: Yes Differential Diagnosis Differential includes cyclical vomiting, gastroenteritis, acute gastritis, dehydration, Narrative Course This gentleman has history of renal cell carcinoma. He is thought to have metastases to the iliac crest which were treated with radiation and he may have metastases to T7. Biopsy results are pending. He has had recurrent bouts of vomiting similar to this one which preceded his carcinoma. He has been seen in the ER for this repeatedly and sometimes gets admitted. We initiated IV fluids and gave Zofran. He vomited after the Zofran and is subsequently been given Phenergan. He was given Phenergan and additional fluids. He was observed. He has vomited again after the Phenergan. He has now been given Compazine. I have ordered a CT scan to assess for possible obstruction though he does not appear distended at this time. CT scan has been done and an explanation for the vomiting is not found. There is no bowel obstruction, free fluid fluid or free air. The stomach is not distended. He is noted to have the lesions consistent with metastatic renal carcinoma. Patient has had episodes like this in the past which generally resolve in about 24 hours Diagnosis Primary Impression: Intractable nausea and vomiting Qualified Code: R11.2 - Intractable vomiting with nausea, unspecified vomiting type Admitting Information Admitting Physician Requests: Observation Stanton Koehler MD Oct 06, 2016 08:23
[2016-10-06] MEDS ORDERED: ONDANSETRON HCL 4 MG/2 ML VIAL IV PUSH ONE (08:30)
[2016-10-06] MEDS ORDERED: SODIUM CHLOR 0.9% 1000 ML INJ 1,000 ML IV ONE ×2 (08:30→10:15)
[2016-10-06 08:38] LABS: AUTOMATED NEUTROPHIL # 5.4 TH/MM3 (1.8-7.7); BASOPHIL # 0.1 TH/MM3 (0-0.2); BASOPHIL % 2.3 % (0.0-2.0); EOSINOPHIL % 0.3 % (0.0-4.0); HEMATOCRIT 35.4 % (39.0-51.0); HEMO FLAGS DIFF FINAL; LYMPH % 12.2 % (9.0-44.0); LYMPHOCYTE # 0.8 TH/MM3 (1.0-4.8); MEAN CORPUSCULAR HEMOGLOBIN 28.8 PG (27.0-34.0); MEAN CORPUSCULAR HGB CONC 33.9 % (32.0-36.0); MONO % 3.8 % (0.0-8.0); NEUT % 81.4 % (16.0-70.0); PLATELET COUNT 125 TH/MM3 (150-450); RED BLOOD COUNT 4.17 MIL/MM3 (4.50-5.90); RED CELL DISTRIBUTION WIDTH 14.1 % (11.6-17.2); WHITE BLOOD COUNT 6.5 TH/MM3 (4.0-11.0)
[2016-10-06 08:47] LABS: CHLORIDE 103 MEQ/L (98-107); POTASSIUM 4.2 MEQ/L (3.5-5.1); SODIUM (NA) 138 MEQ/L (136-145)
[2016-10-06 08:50] LABS: ANION GAP 8 MEQ/L (5-15); BICARBONATE 27.1 MEQ/L (21.0-32.0); BLOOD UREA NITROGEN 24 MG/DL (7-18)
[2016-10-06 08:53] LABS: ALT (GPT) 24 U/L (12-78); AST (GOT) 22 U/L (15-37); GLOMERULAR FILTRATION RATE 65 ML/MIN (>89)
[2016-10-06 08:55] LABS: TOTAL BILIRUBIN ADULT 0.6 MG/DL (0.2-1.0)
[2016-10-06 08:56] LABS: ALKALINE PHOSPHATASE 100 U/L (45-117)
[2016-10-06] MEDS ORDERED: diphenhydrAMINE HCL 50 MG/ML VIAL IV PUSH ONE ×2 (09:00→10:15)
[2016-10-06] MEDS ORDERED: PROCHLORPERAZINE INJ 10 MG/2 ML VIAL IV PUSH ONE ×2 (09:00→10:15)
[2016-10-06 09:39] VITALS: BP 173/88; PULSE 57; RESP 18; O2SAT 97
[2016-10-06] MEDS ORDERED: PROMETHAZINE IM (10:00)
[2016-10-06] MEDS ORDERED: IODIXANOL 320 MG/ML 10 ML VIAL (for Rad CT) IV ONE (11:06)
--- NOTE | 2016-10-06 11:36 | RADHPO ---
EXAM DATE/TIME: 10/06/2016 10:53 [facility] COMPARISON: CT ABDOMEN & PELVIS W CONTRAST, April 06, 2016, 21:02. INDICATIONS : Abdominal pain with nausea and vomiting. IV CONTRAST: 50 cc Visipaque (iodixanol) IV ORAL CONTRAST: No oral contrast ingested. RADIATION DOSE: 18.94 CTDIvol (mGy) MEDICAL HISTORY : Renal cell carcinoma. Hernia, hiatal. Barrtes esophagus SURGICAL HISTORY : Nephrectomy, left. Vena cava thrombis removal. Vena caval ligation. Left renal vein removal. ENCOUNTER: Initial ACUITY: 1 day PAIN SCALE: 4/10 LOCATION: abdomen/pelvis TECHNIQUE: Volumetric scanning of the abdomen and pelvis was performed. Using automated exposure control and ad justment of the mA and/or kV according to patient size, radiation dose was kept as low as reasonably achievable to obtain optimal diagnostic quality images. FINDINGS: Compare with March 2016. Compared with the previous exam the patient is status post left nephrecto my and lymph node dissection in the left retroperitoneum reportedly for renal cell carcinoma. A resid ual 1.4 cm soft tissue nodule in the left retroperitoneum on series 2 image 41 which could represent a small amount of residual disease. There is a 2 cm lytic lesion on the right side of L2 and there is a 4.6 cm mass in the left anterior iliac region associated with bone destruction. These findings are most characteristic of bony metasta tic disease given history renal cell carcinoma. There is kyphoplasty at T7 with a lytic lesion along the lateral aspect of the T7 vertebral body on the left side. Lung bases demonstrate dependent atelectasis. There are 2 nonspecific approximately 3 mm nodules at t he right lateral costophrenic angle indeterminate for metastatic disease. There is no evidence for bowel obstruction. There is previous ligation of the inferior vena cava and extensive retroperitoneal collateral vessels are present. No pelvic adenopathy identified. No free fl uid or free air. No acute findings in the liver, spleen, right kidney or pancreas. No calcified galls tones. Stable cyst near dome of liver. CONCLUSION: 1. Postoperative left nephrectomy for renal cell carcinoma. Multiple bony lytic lesions associated wi th some soft tissue mass as above most characteristic of metastatic disease. 1.4 cm soft tissue nodul e in the nephrectomy bed on the left side, possibly some residual disease or mildly enlarged lymph no de. Questionable sub-5 mm nodules right lung base that could represent early metastatic disease. 2. No bowel obstruction, free air or free fluid. Stomach is not significantly distended. Syed Sykes MD on October 06, 2016 at 11:22 Board Certified Radiologist. This report was verified electronically.
[2016-10-06 12:03] VITALS: BP 172/68; PULSE 67; RESP 18; O2SAT 97
[2016-10-06 12:04] LABS: BLOOD, URINE TRACE (NEG); GLUCOSE,URINE NEG (NEG); KETONE, URINE NEG (NEG); NITRITE,URINE NEG (NEG)
[2016-10-06 12:13] LABS: METHOD OF COLLECTION CLEAN CATCH; RBC, URINE 0-3 /hpf (0-3); URINE COLOR YELLOW (YELLW/STRAW)
[2016-10-06 12:14] LABS: COMMENT (UR) CULT NOT INDICATED; CULTURE IF INDICATED CULT NOT INDICATED; SQUAMOUS EPITHELIAL CELL URINE 0-5 /hpf (0-5); WBC, URINE 0-2 /hpf (0-5)
[2016-10-06] MEDS ORDERED: NALOXONE HCL 0.4 MG/ML AMP IV PRN (13:00)
[2016-10-06] MEDS ORDERED: BISACODYL 10 MG SUPP RECTAL PRN (13:00)
[2016-10-06] MEDS ORDERED: LACTULOSE SYRUP 20 GM/30 ML CUP PO PRN (13:00)
[2016-10-06] MEDS ORDERED: SENNOSIDES 8.6 MG TAB PO PRN (13:00)
[2016-10-06] MEDS ORDERED: ACETAMINOPHEN 325 MG TAB PO PRN (13:00)
[2016-10-06] MEDS ORDERED: ONDANSETRON HCL 4 MG/2 ML VIAL IVP PRN (13:00)
[2016-10-06] MEDS ORDERED: MAGNESIUM HYDROXIDE SUSP 30 ML CUP PO PRN (13:00)
[2016-10-06 13:30] VITALS: BP 166/85; PULSE 70; RESP 24; TEMP 98.8; O2SAT 91
[2016-10-06] MEDS: SODIUM CHLOR 0.9% 1000 ML INJ 1,000 ML IV SCH (13:31)
[2016-10-06] MEDS ORDERED: PROCHLORPERAZINE INJ 10 MG/2 ML VIAL IV PUSH PRN (14:00)
--- NOTE | 2016-10-06 14:58 | HHI.HP ---
cc: Lawrence Mata MD [facility] Primary Care Physician Lawrence Mata MD Admission Diagnosis INTRACTABLE VOMITING Diagnoses: (1) Intractable nausea and vomiting (2) Hyperlipidemia (3) Renal adenocarcinoma Chief Complaint: Nausea/vomiting Travel History International Travel<30 Days: No Contact w/Intl Traveler <30 Da: No Traveled to Known Affected Are: No History of Present Illness The patient is a 81-year-old male with history of renal adenocarcinoma who presented to the emergency department with complaint of nausea and vomiting that started around 2:00 this morning. He reports mild lower abdominal pain. No diarrhea or constipation. He has had similar episodes in the past, and required observation in the hospital in June for the same. His is at bedside and provides much of the history. He is being seen by multiple physicians at [facility]. He has been diagnosed with metastatic disease involving the iliac crest and likely the T7 vertebrae. He had a kyphoplasty with biopsy of T7 on Friday, but has not received the results of the test yet. Review of Systems Constitutional: DENIES: Fever, Chills, Night Sweats Eyes: DENIES: Blurred vision, Vision loss Ears, nose, mouth, throat: DENIES: Hearing loss Respiratory: DENIES: Cough, Wheezing, Sputum production, Shortness of breath Cardiovascular: DENIES: Chest pain, Palpitations, Dyspnea on Exertion, Lower Extremity Edema Gastrointestinal: COMPLAINS OF: Abdominal pain, Nausea, Vomiting, DENIES: Constipation, Diarrhea Genitourinary: DENIES: Urinary frequency, Urinary incontinence, Urgency, Hematuria, Dysuria, Nocturia Musculoskeletal: DENIES: Joint pain, Muscle aches Integumentary: DENIES: Pruritus, Rash Hematologic/lymphatic: DENIES: Bruising Neurologic: DENIES: Headache Past Family Social History Past Medical History Renal adenocarcinoma Hyperlipidemia GERD Tabares's esophagus Hypertension Past Surgical History Ligation of inferior vena cava Kyphoplasty Left nephrectomy Reported Medications Zofran Odt (Ondansetron Odt) 4 Mg Tab 4 Mg SL Q6HR PRN Tylenol Extra Strength (Acetaminophen) 500 Mg Tablet 2 Tab PO DIRECTED PRN Tums (Calcium Carbonate (Antacid)) 500 Mg Chew 500 Mg CHEW PRN Atorvastatin (Atorvastatin Calcium) 10 Mg Tab 10 Mg PO HS Omeprazole 20 Mg Tab 20 Mg PO DAILY Allergies: Coded Allergies: Propofol (Verified Allergy, Severe, PT DENIES, 10/06/16) Family History Denies Social History Quit smoking 5 years ago. Drinks 1 alcoholic beverage daily. Denies illicit drug use. Physical Exam Vital Signs Vital Signs Date Time Temp Pulse Resp B/P Pulse Ox O2 Delivery O2 Flow Rate FiO2 10/06/16 13:30 98.8 70 24 166/85 91 10/06/16 12:03 67 18 172/68 97 Room Air 10/06/16 09:39 57 18 173/88 97 Room Air 10/06/16 07:59 97.5 60 18 151/68 100 Physical Exam GENERAL: Elderly male in no acute distress. Appears uncomfortable. HEENT: Normocephalic, atraumatic. Pupils equal, round and reactive. Extraocular movements intact. No scleral icterus. No injection or drainage. Oropharynx is clear. Mucous membranes are moist. CARDIOVASCULAR: Regular rate and rhythm without murmurs, gallops, or rubs. RESPIRATORY: Clear to auscultation. No wheezes, rales, or rhonchi. Breathing is non-labored. GASTROINTESTINAL: Abdomen soft, nondistended. Mild tenderness to palpation of the lower abdomen without rebound or guarding. EXTREMITIES: Trace bilateral lower extremity edema. No calf tenderness. PSYCH: Alert and oriented x 3. Laboratory Laboratory Tests Test 10/06/16 10/06/16 08:30 12:00 White Blood Count 6.5 Red Blood Count 4.17 Hemoglobin 12.0 Hematocrit 35.4 Mean Corpuscular Volume 85.0 Mean Corpuscular Hemoglobin 28.8 Mean Corpuscular Hemoglobin 33.9 Concent Red Cell Distribution Width 14.1 Platelet Count 125 Mean Platelet Volume 8.1 Neutrophils (%) (Auto) 81.4 Lymphocytes (%) (Auto) 12.2 Monocytes (%) (Auto) 3.8 Eosinophils (%) (Auto) 0.3 Basophils (%) (Auto) 2.3 Neutrophils # (Auto) 5.4 Lymphocytes # (Auto) 0.8 Monocytes # (Auto) 0.2 Eosinophils # (Auto) 0.0 Basophils # (Auto) 0.1 CBC Comment DIFF FINAL Differential Comment Sodium Level 138 Potassium Level 4.2 Chloride Level 103 Carbon Dioxide Level 27.1 Anion Gap 8 Blood Urea Nitrogen 24 Creatinine 1.10 Estimat Glomerular Filtration 65 Rate Random Glucose 170 Calcium Level 9.7 Total Bilirubin 0.6 Aspartate Amino Transf 22 (AST/SGOT) Alanine Aminotransferase 24 (ALT/SGPT) Alkaline Phosphatase 100 Total Protein 8.0 Albumin 3.9 Urine Collection Type CLEAN CATCH Urine Color YELLOW Urine Turbidity CLEAR Urine pH 7.0 Urine Specific Joes 1.026 Urine Protein NEG Urine Glucose (UA) NEG Urine Ketones NEG Urine Occult Blood TRACE Urine Nitrite NEG Urine Bilirubin NEG Urine Leukocyte Esterase NEG Urine RBC 0-3 Urine WBC 0-2 Urine Squamous Epithelial 0-5 Cells Urine Amorphous Sediment FEW Microscopic Urinalysis Comment CULT NOT INDICATED Urine Collection Time 12:00 Result Diagram: 10/06/16 0830 10/06/16 0830 Imaging Last Impressions Abdomen/Pelvis CT 10/06/16 1024 Signed Impressions: Service Date/Time: Thursday, October 06, 2016 10:53 - CONCLUSION: 1. Postoperative left nephrectomy for renal cell carcinoma. Multiple bony lytic lesions associated with some soft tissue mass as above most characteristic of metastatic disease. 1.4 cm soft tissue nodule in the nephrectomy bed on the left side, possibly some residual disease or mildly enlarged lymph node. Questionable sub- 5 mm nodules right lung base that could represent early metastatic disease. 2. No bowel obstruction, free air or free fluid. Stomach is not significantly distended. Syed Sykes MD Assessment and Plan Assessment and Plan 1. Intractable nausea and vomiting: Continue antiemetics. Continue IV fluids. Clear liquid diet as tolerated. 2. Renal adenocarcinoma: Follow-up as outpatient at [facility] [place]. 3. Hyperlipidemia: Continue statin. 4. GERD, Tabares's esophagus: Continue PPI. 5. DVT prophylaxis: SCDs, LIZZ hernandez. Problem Qualifiers (1) Intractable nausea and vomiting: Qualified Code: R11.2 - Intractable vomiting with nausea, unspecified vomiting type Huy Huertas MD Oct 06, 2016 14:58
[2016-10-06 16:00] VITALS: BP 166/80; PULSE 64; RESP 20; TEMP 98.1; O2SAT 97
[2016-10-06] MEDS ORDERED: ONDANSETRON HCL 4 MG/2 ML VIAL IV PUSH PRN (16:30)
[2016-10-06 20:00] VITALS: BP 132/66; PULSE 60; RESP 18; TEMP 98.5; O2SAT 98
[2016-10-06] MEDS ORDERED: ATORVASTATIN 10 MG TAB PO SCH (21:00)
[2016-10-06] MEDS: DOCUSATE SODIUM 50 MG/SENNA 8.6 MG TAB PO SCH (21:00)
[2016-10-07] VITALS: BP 117/69; PULSE 65; RESP 18; TEMP 98.2; O2SAT 98
[2016-10-07] MEDS: SODIUM CHLOR 0.9% 1000 ML INJ 1,000 ML IV SCH ×2 (06:34→09:13)
[2016-10-07 06:49] LABS: POTASSIUM 3.9 MEQ/L (3.5-5.1)
[2016-10-07 07:05] LABS: BICARBONATE 30.7 MEQ/L (21.0-32.0)
[2016-10-07] MEDS: DOCUSATE SODIUM 50 MG/SENNA 8.6 MG TAB PO SCH (07:56)
[2016-10-07 08:00] VITALS: BP 125/68; PULSE 57; RESP 19; TEMP 96.8; O2SAT 94
--- NOTE | 2016-10-07 08:35 | HHI.DCPOC ---
Discharge Care Plan Diagnosis: (1) Intractable nausea and vomiting Goals to Promote Your Health * To prevent worsening of your condition and complications * To maintain your health at the optimal level Directions to Meet Your Goals Take your medications as prescribed Follow your dietary instruction Follow activity as directed Keep your appointments as scheduled Take your immunizations and boosters as scheduled If your symptoms worsen call your PCP, if no PCP go to Urgent Care Center or Emergency Room Smoking is Dangerous to Your Health. Avoid second hand smoke Call the 24-hour hour crisis hotline for domestic abuse at Huy Huertas MD Oct 07, 2016 08:35
--- NOTE | 2016-10-07 08:38 | HHI.PR ---
Subjective Remarks Follow up nausea/vomiting. The patient states that he feels much better today. He has no nausea or vomiting. Has not required antiemetics since yesterday evening. No abdominal pain. He would like to go home this morning. Objective Vitals Vital Signs Date Time Temp Pulse Resp B/P Pulse Ox O2 Delivery O2 Flow Rate FiO2 10/07/16 08:00 96.8 57 19 125/68 94 10/07/16 00:00 98.2 65 18 117/69 98 10/06/16 20:00 98.5 60 18 132/66 98 10/06/16 16:00 98.1 64 20 166/80 97 10/06/16 13:30 98.8 70 24 166/85 91 10/06/16 12:03 67 18 172/68 97 Room Air 10/06/16 09:39 57 18 173/88 97 Room Air I/O 10/06/16 10/06/16 10/06/16 10/07/16 10/07/16 10/07/16 07:00 15:00 23:00 07:00 15:00 23:00 Intake Total 2000 ml 240 ml 640 ml Output Total 250 ml 1350 ml 800 ml 250 ml Balance 1750 ml -1110 ml -160 ml -250 ml Intake Oral 240 ml 240 ml IV Total 2000 ml 400 ml Output Urine Total 250 ml 1350 ml 800 ml 250 ml # Voids 1 # Bowel Movements 0 Result Diagram: 10/06/16 0830 10/07/16 0510 Imaging Last Impressions Abdomen/Pelvis CT 10/06/16 1024 Signed Impressions: Service Date/Time: Thursday, October 06, 2016 10:53 - CONCLUSION: 1. Postoperative left nephrectomy for renal cell carcinoma. Multiple bony lytic lesions associated with some soft tissue mass as above most characteristic of metastatic disease. 1.4 cm soft tissue nodule in the nephrectomy bed on the left side, possibly some residual disease or mildly enlarged lymph node. Questionable sub- 5 mm nodules right lung base that could represent early metastatic disease. 2. No bowel obstruction, free air or free fluid. Stomach is not significantly distended. Syed Sykes MD Objective Remarks General: Elderly male in no acute distress. Heart: Regular rate and rhythm. No murmur. Lungs: Clear to auscultation bilaterally. No wheezes, rales, or rhonchi. Breathing is nonlabored. Abdomen: Soft, nontender, nondistended. Extremities: No lower extremity edema. Psych: Alert and oriented. Urinary Catheter: No Vascular Central Line Catheter: No A/P Problem List: (1) Intractable nausea and vomiting ICD Code: R11.2 Status: Resolved (2) Hyperlipidemia ICD Code: E78.5 Status: Chronic (3) Renal adenocarcinoma ICD Code: C64.9 Status: Chronic Assessment and Plan 1. Intractable nausea and vomiting: Resolved. Patient has not had any nausea or vomiting overnight. Tolerating liquid diet. 2. Renal adenocarcinoma: Follow-up as outpatient at [facility]. 3. Hyperlipidemia: Continue statin. 4. GERD, Tabares's esophagus: Continue PPI. 5. DVT prophylaxis: LACIEs, LIZZ hernandez. Discharge Planning Discharge home in stable condition. Follow-up with PCP, oncology. Heart healthy diet as tolerated. Activity as tolerated. Problem Qualifiers (1) Intractable nausea and vomiting: Qualified Code: R11.2 - Intractable vomiting with nausea, unspecified vomiting type Huy Huertas MD Oct 07, 2016 08:38
[2016-10-07] MEDS ORDERED: PANTOPRAZOLE SOD 20 MG DELAYED RELEASE TAB PO SCH (09:00)
== END 2016-10-07 10:34 | disposition home or self-care (01) ==
LOC: PHED 07:56 → UNDOADMOB 12:24 → PHEDA 12:24 → PH3A 13:23 → PHEDA 13:23 → UNDODISOB 10-07 10:34
PROVIDERS: ADMIT Family Medicine; ATTEND Family Medicine
DX: R11.2 Nausea with vomiting, unspecified (principal); C64.9 Malignant neoplasm of unspecified kidney, except renal pelvis; E78.5 Hyperlipidemia, unspecified; E78.00 Pure hypercholesterolemia, unspecified; K22.70 Barrett's esophagus without dysplasia; K21.9 Gastro-esophageal reflux disease without esophagitis; C76.51 Malignant neoplasm of right lower limb; I10 Essential (primary) hypertension; Z79.899 Other long term (current) drug therapy; Z87.891 Personal history of nicotine dependence
CPT/HCPCS: 74177; 80048; 80053; 81001; 85025; 96361; 96372; 96374; 96375; 99285; G0378; J0780; J1200; J2405; J7030; Q9967

== ENCOUNTER 2016-11-28 15:09 | Observation (INO) | payer MEDICARE ==
[2016-11-28] VITALS (7 sets, daily range): BP systolic 131–176; BP diastolic 65–85; PULSE 77–100; RESP 14–22; TEMP 97.7–97.8; O2SAT 88–97
[~2016-11-28] VITALS: Ht 172.7 cm; Wt 96.7 kg
[~2016-11-28 15:09] MED LIST changes: +ACET-822 PO; -PROM1SUP7 RECTAL; +TUMS500C CHEW; -ZETI10TA5 PO
[2016-11-28] MEDS ORDERED: ZETI10TA5 PO (15:30)
[2016-11-28] MEDS ORDERED: PROC10TA PO (15:41)
[2016-11-28 16:13] LABS: AUTOMATED NEUTROPHIL # 4.8 TH/MM3 (1.8-7.7); BASOPHIL % 0.3 % (0.0-2.0); EOSINOPHIL % 0.2 % (0.0-4.0); HEMATOCRIT 39.2 % (39.0-51.0); HEMO FLAGS DIFF FINAL; LYMPH % 13.8 % (9.0-44.0); LYMPHOCYTE # 0.8 TH/MM3 (1.0-4.8); MEAN CELL VOLUME 89.3 FL (80.0-100.0); MEAN CORPUSCULAR HEMOGLOBIN 29.2 PG (27.0-34.0); MEAN CORPUSCULAR HGB CONC 32.7 % (32.0-36.0); MONO % 3.3 % (0.0-8.0); NEUT % 82.4 % (16.0-70.0); PLATELET COUNT 192 TH/MM3 (150-450); RED BLOOD COUNT 4.38 MIL/MM3 (4.50-5.90); RED CELL DISTRIBUTION WIDTH 15.2 % (11.6-17.2); WHITE BLOOD COUNT 5.8 TH/MM3 (4.0-11.0)
[2016-11-28] MEDS ORDERED: PROCHLORPERAZINE INJ 10 MG/2 ML VIAL IV PUSH ONE (16:15)
[2016-11-28] MEDS ORDERED: diphenhydrAMINE HCL 50 MG/ML VIAL IV PUSH ONE (16:15)
[2016-11-28] MEDS ORDERED: SODIUM CHLOR 0.9% 1000 ML INJ 1,000 ML IV SCH ×2 (16:15)
--- NOTE | 2016-11-28 16:19 | PD ---
HPI Chief Complaint: GI Complaint Time Seen by Provider: 15:43 Travel History International Travel<30 days: No Contact w/Intl Traveler<30days: No Traveled to known affect area: No History of Present Illness HPI Is a 81-year-old man who presents emergent department nausea and vomiting. His a history of metastatic renal cell carcinoma. He had radiation treatments to T7 and L2 on October 23 at [facility] were is followed. He's not had treatment otherwise since then. He's had bouts of intermittent intractable nausea and vomiting for the past several years. They're somewhat unpredictable not necessarily related to any treatment or medications. He was feeling generally well until this morning he felt kind of wobbly nauseous and lightheaded. He then proceeded to have severe nausea and vomiting lasting throughout the morning. He's taken 2 or 3 doses of sublingual Zofran as well as a couple doses of Compazine which hasn't seemed to help. No significant abdominal pain. History Past Medical History Narrative Medical Renal adenocarcinoma Hypokalemia GERD Hypertension Influenza Vaccination: No Social History Alcohol Use: Yes (ONE DRINK DAILY) Tobacco Use: No (quit 4 years ago ) Allergies-Medications (Allergen,Severity, Reaction): Coded Allergies: Propofol (Verified Allergy, Severe, PT DENIES, 11/28/16) Reported Meds & Prescriptions Reported Meds & Active Scripts Active Zofran Odt (Ondansetron Odt) 4 Mg Tab 4 Mg SL Q6HR PRN Reported Prochlorperazine Maleate 10 Mg Tab 10 Mg PO Q6H PRN Zetia (Ezetimibe) 10 Mg Tab 5 Mg PO DAILY Tylenol Extra Strength (Acetaminophen) 500 Mg Tablet 2 Tab PO DIRECTED PRN Tums (Calcium Carbonate (Antacid)) 500 Mg Chew 500 Mg CHEW PRN Atorvastatin (Atorvastatin Calcium) 10 Mg Tab 10 Mg PO HS Omeprazole 20 Mg Tab 20 Mg PO DAILY Review of Systems Except as stated in HPI: all other systems reviewed are Neg Physical Exam Narrative GENERAL: Well-appearing 81-year-old man, looks a little bit ill, pale and clammy. SKIN: Focused skin assessment pale and clammy. NECK: Trachea midline. No JVD. CARDIOVASCULAR: Regular rate and rhythm. No murmur appreciated. RESPIRATORY: No accessory muscle use. Clear to auscultation. Breath sounds equal bilaterally. GASTROINTESTINAL: Abdomen soft, non-tender, nondistended. Hepatic and splenic margins not palpable. MUSCULOSKELETAL: No obvious deformities. No edema. NEUROLOGICAL: Awake and alert. No obvious cranial nerve deficits. Motor grossly within normal limits. Normal speech. PSYCHIATRIC: Appropriate mood and affect; insight and judgment normal. Data Data Last Documented VS Vital Signs Date Time Temp Pulse Resp B/P Pulse Ox O2 Delivery O2 Flow Rate FiO2 11/28/16 17:23 80 18 151/84 97 Room Air 11/28/16 15:15 97.7 Orders Iv Access Insert/Monitor (11/28/16 16:05) Complete Blood Count With Diff (11/28/16 16:05) Comprehensive Metabolic Panel (11/28/16 16:05) Urinalysis - C+S If Indicated (11/28/16 16:05) Sodium Chlor 0.9% 1000 Ml Inj (Ns 1000 M (11/28/16 16:15) Sodium Chlor 0.9% 1000 Ml Inj (Ns 1000 M (11/28/16 16:15) Prochlorperazine Inj (Compazine Inj) (11/28/16 16:15) Diphenhydramine Inj (Benadryl Inj) (11/28/16 16:15) Ondansetron Inj (Zofran Inj) (11/28/16 17:00) Place In Observation (11/28/16 ) Vital Signs (Adult) Q4H (11/28/16 17:27) Activity Bed Rest With Brp (11/28/16 17:27) Diet Npo (11/28/16 Dinner) Sodium Chlor 0.9% 1000 Ml Inj (Ns 1000 M (11/28/16 17:27) Acetaminophen (Tylenol) (11/28/16 17:30) Ondansetron Inj (Zofran Inj) (11/28/16 17:30) Prochlorperazine Supp (Compazine Supp) (11/28/16 17:30) Comprehensive Metabolic Panel (11/29/16 06:00) Complete Blood Count With Diff (11/29/16 06:00) Lorazepam Inj (Ativan Inj) (11/28/16 17:30) Abdomen, Flat & Upright (11/28/16 ) Admit Order (Ed Use Only) (11/28/16 ) Labs Laboratory Tests Test 11/28/16 15:35 White Blood Count 5.8 TH/MM3 Red Blood Count 4.38 MIL/MM3 Hemoglobin 12.8 GM/DL Hematocrit 39.2 % Mean Corpuscular Volume 89.3 FL Mean Corpuscular Hemoglobin 29.2 PG Mean Corpuscular Hemoglobin 32.7 % Concent Red Cell Distribution Width 15.2 % Platelet Count 192 TH/MM3 Mean Platelet Volume 8.0 FL Neutrophils (%) (Auto) 82.4 % Lymphocytes (%) (Auto) 13.8 % Monocytes (%) (Auto) 3.3 % Eosinophils (%) (Auto) 0.2 % Basophils (%) (Auto) 0.3 % Neutrophils # (Auto) 4.8 TH/MM3 Lymphocytes # (Auto) 0.8 TH/MM3 Monocytes # (Auto) 0.2 TH/MM3 Eosinophils # (Auto) 0.0 TH/MM3 Basophils # (Auto) 0.0 TH/MM3 CBC Comment DIFF FINAL Differential Comment Sodium Level 138 MEQ/L Potassium Level 4.1 MEQ/L Chloride Level 103 MEQ/L Carbon Dioxide Level 24.4 MEQ/L Anion Gap 11 MEQ/L Blood Urea Nitrogen 24 MG/DL Creatinine 1.20 MG/DL Estimat Glomerular Filtration 58 ML/MIN Rate Random Glucose 157 MG/DL Calcium Level 9.3 MG/DL Total Bilirubin 0.7 MG/DL Aspartate Amino Transf 27 U/L (AST/SGOT) Alanine Aminotransferase 28 U/L (ALT/SGPT) Alkaline Phosphatase 120 U/L Total Protein 8.1 GM/DL Albumin 4.0 GM/DL [facility] Medical Decision Making Medical Screen Exam Complete: Yes Emergency Medical Condition: Yes Differential Diagnosis Tractable vomiting, obstruction, gastroparesis, GERD, other Narrative Course Medical decision making INITIAL: This Is a 81-year-old man who presents to the emergency department with severe nausea and vomiting. Looks a little bit ill. Multiple previous episodes of the same. We'll check labs, urine, IV fluids, medication, reassess. Jarett Ceballos MD Nov 28, 2016 16:19
[2016-11-28 16:23] LABS: CHLORIDE 103 MEQ/L (98-107); POTASSIUM 4.1 MEQ/L (3.5-5.1); SODIUM (NA) 138 MEQ/L (136-145)
[2016-11-28 16:27] LABS: ANION GAP 11 MEQ/L (5-15); BICARBONATE 24.4 MEQ/L (21.0-32.0); BLOOD UREA NITROGEN 24 MG/DL (7-18)
[2016-11-28 16:30] LABS: ALT (GPT) 28 U/L (12-78); AST (GOT) 27 U/L (15-37); GLOMERULAR FILTRATION RATE 58 ML/MIN (>89)
[2016-11-28 16:32] LABS: TOTAL BILIRUBIN ADULT 0.7 MG/DL (0.2-1.0)
[2016-11-28 16:33] LABS: ALKALINE PHOSPHATASE 120 U/L (45-117)
[2016-11-28] MEDS ORDERED: ONDANSETRON HCL 4 MG/2 ML VIAL IV ONE (17:00)
[2016-11-28] MEDS ORDERED: LORazepam 2 MG/ML VIAL IV PUSH ONE (17:30)
[2016-11-28] MEDS ORDERED: ONDANSETRON HCL 4 MG/2 ML VIAL IVP PRN (17:30)
[2016-11-28] MEDS ORDERED: ACETAMINOPHEN 325 MG TAB PO PRN (17:30)
[2016-11-28] MEDS ORDERED: PROCHLORPERAZINE 25 MG SUPP RECTAL PRN (17:30)
--- NOTE | 2016-11-28 17:44 | HHI.HP ---
cc: Lawrence Mata MD HPI Service [facility] Hospitalists Primary Care Physician Lawrence Mata MD Admission Diagnosis intractable nausea vomiting Diagnoses: (1) Intractable nausea and vomiting Diagnosis: Principal (2) Prerenal azotemia Diagnosis: Principal Chief Complaint: vomiting Travel History International Travel<30 Days: No Contact w/Intl Traveler <30 Da: No Traveled to Known Affected Are: No History of Present Illness Written by Amelia Stockton PA-C acting as scribe for Dr. Combs on 11/28/16 at 1735. 81-year-old male with history of metastatic renal cell carcinoma, Tabares's esophagus, and HLD is admitted for intractable vomiting. The patient states he has had episodes of intractable vomiting approximately twice per year for the past 12 years. He has been to [place] several times for this including once in September and twice in June of this year. He states this episode started this morning, coming and going. According to the ED note he took 3 Zofran and a couple of Compazine at home prior to coming to the ED. The patient states he is uncomfortable but not in pain. He underwent removal of his kidney and underwent radiation in October at [facility]. He has not undergone any chemotherapy. He denies any issues with diarrhea or constipation. Last bowel movement was this morning, nonbloody. He is vomiting liquid. Denies trouble urinating. Recently traveled to [place] but denies eating anything out of the ordinary. Dr. Mata is his PCP and Dr. Chand is his GI doctor. 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 Mother at age 86 from old age. Father at age 42 from [place]. Father was a heavy smoker and drinker. Social History Drinks one drink daily. Quit smoking a few years ago. Works as an project accountant. Lives at home with a private duty nurse. Physical Exam Vital Signs Vital Signs Date Time Temp Pulse Resp B/P Pulse Ox O2 Delivery O2 Flow Rate FiO2 11/28/16 17:23 80 18 151/84 97 Room Air 11/28/16 16:16 88 18 131/65 97 Room Air 11/28/16 15:15 97.7 77 16 141/67 97 Physical Exam GENERAL: This is an ill appearing well-nourished well-developed patient, in no apparent distress. SKIN: Superficial veins to both feet. Warm and dry. HEAD: Atraumatic. Normocephalic. EYES: Keeps his eyes closed on exam. NECK: Trachea midline. CARDIOVASCULAR: Tachycardic rate with irregular rhythm without murmurs, gallops , or rubs. HR decreases during vomiting. RESPIRATORY: Crackles at the bases but otherwise clear. GASTROINTESTINAL: Hypoactive bowel sounds. Generalized tenderness. Abdomen mildly distended. No guarding. Starts to actively vomit on exam. MUSCULOSKELETAL: Swelling of bilateral lower extremities, chronic per patient. Needs assistance to sit forward. NEUROLOGICAL: Awake and alert. Normal speech. Laboratory Laboratory Tests Test 11/28/16 15:35 White Blood Count 5.8 Red Blood Count 4.38 Hemoglobin 12.8 Hematocrit 39.2 Mean Corpuscular Volume 89.3 Mean Corpuscular Hemoglobin 29.2 Mean Corpuscular Hemoglobin 32.7 Concent Red Cell Distribution Width 15.2 Platelet Count 192 Mean Platelet Volume 8.0 Neutrophils (%) (Auto) 82.4 Lymphocytes (%) (Auto) 13.8 Monocytes (%) (Auto) 3.3 Eosinophils (%) (Auto) 0.2 Basophils (%) (Auto) 0.3 Neutrophils # (Auto) 4.8 Lymphocytes # (Auto) 0.8 Monocytes # (Auto) 0.2 Eosinophils # (Auto) 0.0 Basophils # (Auto) 0.0 CBC Comment DIFF FINAL Differential Comment Sodium Level 138 Potassium Level 4.1 Chloride Level 103 Carbon Dioxide Level 24.4 Anion Gap 11 Blood Urea Nitrogen 24 Creatinine 1.20 Estimat Glomerular Filtration 58 Rate Random Glucose 157 Calcium Level 9.3 Total Bilirubin 0.7 Aspartate Amino Transf 27 (AST/SGOT) Alanine Aminotransferase 28 (ALT/SGPT) Alkaline Phosphatase 120 Total Protein 8.1 Albumin 4.0 Result Diagram: 11/28/16 1535 11/28/16 1535 Assessment and Plan Assessment and Plan 81-year-old male presents with: Intractable nausea and vomiting: Chronic problem. Unrelieved by antiemetics at home. White blood cell count normal. Mildly anemic at 12.8 which is chronic. Electrolytes normal. -Abdominal x-rays pending -UA pending -Zofran IV and Compazine suppository as needed for n/v -IV NS @ 100 mL/hr -Patient had some irregularities on telemetry likely related to vagal response with vomiting. RBBB is pre-existing. Continue to monitor telemetry. Pre-renal azotemia: Mild. -IVF as above -Recheck labs in the morning Metastatic renal adenocarcinoma: has undergone kidney removal and radiation. Nothing acute to do. Other chronic medical conditions include Tabares's esophagus and hyperlipidemia : Continue home medications. DVT prophylaxis: Lovenox. Discussed Condition With ED physician Medical Decision Making Impression and Plan The exam, history, and the medical decision-making described in the above note were completed with the assistance of the scribe. I reviewed and agree with the findings presented. I attest that I had a [id number] encounter with the patient on the same day, and personally performed and documented my assessment and findings in the medical record. Amelia Stockton Nov 28, 2016 17:44 Ciarra Combs MD Nov 28, 2016 22:50
[2016-11-28] MEDS: SODIUM CHLOR 0.9% 1000 ML INJ 1,000 ML IV SCH (18:29)
--- NOTE | 2016-11-28 18:33 | RADRPT ---
EXAM DATE/TIME: 11/28/2016 17:38 [facility] COMPARISON: ABDOMEN FLAT & UPRIGHT, July 06, 2016, 15:50. INDICATIONS : Nausea and vomiting. MEDICAL HISTORY : Hiatal hernia. Rectus hematoma, GERD, Jonathan's esophagus. SURGICAL HISTORY : Nephrectomy, left. Left renal vein remval ENCOUNTER: Initial ACUITY: 1 day PAIN SCORE: 3/10 LOCATION: Abdomen FINDINGS: One spaces are clear. Bowel gas is unremarkable. Evidence of previous surgery noted. There is no f ree air or obstruction. Degenerative changes lumbar spine. Moderate vascular calcifications. CONCLUSION: Negative for free air or obstruction. Lucho Duff MD FACR on November 28, 2016 at 18:31 Board Certified Radiologist. This report was verified electronically.
[2016-11-28] MEDS ORDERED: DIATRIZOATE MEGLUM/DIATRIZOATE SOD 9 ML CUP PO ONE (19:30)
[2016-11-28] MEDS ORDERED: ENOXAPARIN SODIUM 40 MG/0.4 ML SYRINGE SQ SCH (20:00)
[2016-11-28] MEDS ORDERED: ATORVASTATIN 10 MG TAB PO SCH (21:00)
[2016-11-29] VITALS: BP 154/99; PULSE 80; RESP 16; TEMP 97.8; O2SAT 97
[2016-11-29 00:41] LABS: BLOOD, URINE TRACE (NEG); GLUCOSE,URINE NEG (NEG); KETONE, URINE 15 mg/dL (NEG); NITRITE,URINE NEG (NEG); PH, URINE 5.5 (5.0-8.5)
[2016-11-29 00:57] LABS: URINE COLOR YELLOW (YELLW/STRAW)
[2016-11-29 00:58] LABS: COMMENT (UR) CULT NOT INDICATED; CULTURE IF INDICATED CULT NOT INDICATED; RBC, URINE 0-3 /hpf (0-3); SQUAMOUS EPITHELIAL CELL URINE 0-5 /hpf (0-5); WBC, URINE 0-2 /hpf (0-5)
[2016-11-29] MEDS: SODIUM CHLOR 0.9% 1000 ML INJ 1,000 ML IV SCH ×2 (03:13→12:52)
[2016-11-29 04:00] VITALS: BP 147/79; PULSE 90; RESP 20; TEMP 97.9; O2SAT 97
[2016-11-29 07:58] VITALS: O2SAT 97
[2016-11-29 08:12] VITALS: BP 158/78; PULSE 71; RESP 19; TEMP 96.1; O2SAT 96
[2016-11-29 08:53] LABS: CHLORIDE 106 MEQ/L (98-107); POTASSIUM 3.9 MEQ/L (3.5-5.1); SODIUM (NA) 139 MEQ/L (136-145)
[2016-11-29 08:57] LABS: ANION GAP 8 MEQ/L (5-15); BICARBONATE 25.2 MEQ/L (21.0-32.0); BLOOD UREA NITROGEN 19 MG/DL (7-18)
[2016-11-29 09:00] LABS: ALT (GPT) 22 U/L (12-78); AST (GOT) 20 U/L (15-37); GLOMERULAR FILTRATION RATE 65 ML/MIN (>89)
[2016-11-29] MEDS ORDERED: PANTOPRAZOLE SOD 20 MG DELAYED RELEASE TAB PO SCH (09:00)
[2016-11-29] MEDS ORDERED: EZETIMIBE 10 MG TAB PO SCH (09:00)
[2016-11-29 09:01] LABS: TOTAL BILIRUBIN ADULT 0.6 MG/DL (0.2-1.0)
[2016-11-29 09:02] LABS: AUTOMATED NEUTROPHIL # 4.6 TH/MM3 (1.8-7.7); BASOPHIL % 0.6 % (0.0-2.0); HEMATOCRIT 35.8 % (39.0-51.0); HEMO FLAGS DIFF FINAL; LYMPH % 15.1 % (9.0-44.0); LYMPHOCYTE # 0.9 TH/MM3 (1.0-4.8); MEAN CELL VOLUME 87.9 FL (80.0-100.0); MEAN CORPUSCULAR HGB CONC 32.9 % (32.0-36.0); MONO % 7.2 % (0.0-8.0); NEUT % 77.1 % (16.0-70.0); PLATELET COUNT 176 TH/MM3 (150-450); RED BLOOD COUNT 4.07 MIL/MM3 (4.50-5.90); RED CELL DISTRIBUTION WIDTH 14.7 % (11.6-17.2); WHITE BLOOD COUNT 5.9 TH/MM3 (4.0-11.0)
[2016-11-29 09:03] LABS: ALKALINE PHOSPHATASE 101 U/L (45-117)
[2016-11-29 12:34] VITALS: BP 115/61; PULSE 62; RESP 19; TEMP 96.3; O2SAT 98
--- NOTE | 2016-11-29 14:47 | HHI.PR ---
Subjective Remarks Follow-up intractable vomiting 11/29/16-patient seen and examined, denies any nausea of emesis since admission although patient currently nothing by mouth. No acute event overnight Objective Vitals Vital Signs Date Time Temp Pulse Resp B/P Pulse Ox O2 Delivery O2 Flow Rate FiO2 11/29/16 12:34 96.3 62 19 115/61 98 11/29/16 08:12 96.1 71 19 158/78 96 11/29/16 07:58 97 Nasal Cannula 2.00 11/29/16 04:00 97.9 90 20 147/79 97 11/29/16 00:00 97.8 80 16 154/99 97 11/28/16 21:28 97 Nasal Cannula 2.00 11/28/16 21:27 88 21 11/28/16 21:00 97.8 100 22 147/85 93 11/28/16 19:08 14 11/28/16 19:08 98 14 176/81 94 Nasal Cannula 2 11/28/16 17:23 80 18 151/84 97 Room Air 11/28/16 16:16 88 18 131/65 97 Room Air 11/28/16 15:15 97.7 77 16 141/67 97 I/O 11/28/16 11/28/16 11/28/16 11/29/16 11/29/16 11/29/16 07:00 15:00 23:00 07:00 15:00 23:00 Intake Total 2000 ml 553 ml 1001 ml Output Total 700 ml Balance 2000 ml -147 ml 1001 ml Intake Oral 0 ml IV Total 2000 ml 553 ml 1001 ml Output Urine Total 700 ml Result Diagram: 11/29/16 0830 11/29/16 0830 Imaging Last Impressions Abdomen X-Ray 11/28/16 0000 Signed Impressions: Service Date/Time: November 17:38 - CONCLUSION: Negative for free air or obstruction. Lucho Duff MD FACR Objective Remarks GENERAL: NAD SKIN: Warm and dry. HEAD: Normocephalic. EYES: No scleral icterus. No injection or drainage. NECK: Supple, trachea midline. No JVD or lymphadenopathy. CARDIOVASCULAR: Regular rate and rhythm without murmurs, gallops, or rubs. RESPIRATORY: Breath sounds equal bilaterally. No accessory muscle use. GASTROINTESTINAL: Abdomen soft, non-tender, nondistended. MUSCULOSKELETAL: No cyanosis, or edema. BACK: Nontender without obvious deformity. No CVA tenderness. A/P Problem List: (1) Intractable nausea and vomiting ICD Code: R11.2 Status: Resolved (2) Prerenal azotemia ICD Code: R79.89 Status: Acute Assessment and Plan 81-year-old man with Intractable nausea and vomiting Improving with IV fluid hydration, antiemetic Abdominal x-ray negative Start full liquid and advance diet as tolerated Pre-renal azotemia: Mild. Improving with IVF Metastatic renal adenocarcinoma: Follow outpatient at [facility] next week Other chronic medical conditions include Tabares's esophagus and hyperlipidemia : Continue home medications. DVT prophylaxis: Lovenox. Discharge Planning Discharge patient to home Condition on discharge: Improved Regular Diet as tolerated Ad Gladys activity Rx written:none Follow-up with primary care physician in 1 week Terry Beltran MD Nov 29, 2016 14:46
== END 2016-11-29 16:38 | disposition home or self-care (01) ==
LOC: PHED 15:09 → PHEDA 17:34 → PH3A 21:07
PROVIDERS: ADMIT Hospitalist; ATTEND Hospitalist
DX: R11.2 Nausea with vomiting, unspecified (principal); R79.89 Other specified abnormal findings of blood chemistry; C64.9 Malignant neoplasm of unspecified kidney, except renal pelvis; E78.5 Hyperlipidemia, unspecified; D64.9 Anemia, unspecified; I25.10 Atherosclerotic heart disease of native coronary artery without angina pectoris; K22.70 Barrett's esophagus without dysplasia; K21.9 Gastro-esophageal reflux disease without esophagitis; I45.10 Unspecified right bundle-branch block; Z85.528 Personal history of other malignant neoplasm of kidney; Z87.891 Personal history of nicotine dependence; Z79.899 Other long term (current) drug therapy; Z92.3 Personal history of irradiation
CPT/HCPCS: 74020; 80053; 81001; 85025; 96361; 96372; 96374; 96375; 96376; 99285; G0378; J0780; J1200; J1650; J2060; J2405; J7030

== ENCOUNTER 2017-01-14 16:32 | Inpatient (IN) | payer MEDICARE ==
[~2017-01-14] VITALS: Ht 180.3 cm; Wt 90.7 kg
[~2017-01-14 16:32] MED LIST changes: +PROC10TA PO; +ZETI10TA5 PO
[2017-01-14 16:45] VITALS: BP 142/71; PULSE 88; RESP 19; TEMP 97.5
--- NOTE | 2017-01-14 16:55 | PD ---
HPI Chief Complaint: vomiting Time Seen by Provider: 16:39 Travel History International Travel<30 days: No Contact w/Intl Traveler<30days: No Traveled to known affect area: No History of Present Illness HPI This patient comes the ER complaining of nausea and vomiting. He's had multiple episodes of vomiting today. Duration one day. Severity of symptoms is moderate. No alleviating factors. He tried 2 doses of Zofran at home which didn't help. No exacerbating factors. He is been getting chemotherapy for metastatic renal cell carcinoma for last 38 days. He has chronic intermittent vomiting spells like this several times a year. This is been going on for 4 years. He is had multiple evaluations without any specific cause per his report. He denies fever. No shortness of breath or chest pain. He periodically gets some epigastric discomfort when he is vomiting. Denies alcohol abuse. PFSH Past Medical History Arthritis: No Asthma: No Autoimmune Disease: No Anxiety: No Depression: No Heart Rhythm Problems: Yes ( not aware of rhythm issues ) Cancer: Yes (RENAL WITH NODULES ) Cardiovascular Problems: Yes High Cholesterol: Yes Chemotherapy: No Chest Pain: No Congestive Heart Failure: No COPD: No Cerebrovascular Accident: No Diabetes: No Diminished Hearing: No Endocrine: No Gastrointestinal Disorders: Yes (HX RECTUS HEMATOMA) GERD: Yes (BARRETS ESOPHAGUS ) Genitourinary: Yes Headaches: No Hiatal Hernia: Yes Heparin Induced Thrombocytopen: No Hypertension: Yes Immune Disorder: No Implanted Vascular Access Dvce: No Kidney Stones: Yes Musculoskeletal: Yes (left illiac nodole. radiation to left hip-pain prior ) Neurologic: Yes ( states no neuro issues, did have kyphoplasty T7) Psychiatric: No Reproductive: No Respiratory: No Immunizations Current: Yes Migraines: No Radiation Therapy: Yes (5 DAYS TO LEFT HIP) Renal Failure: No Seizures: No Sickle Cell Disease: No Sleep Apnea: No Thyroid Disease: No Ulcer: No Past Surgical History Abdominal Surgery: Yes (LEFT NEPHRECTOMY AND LEFT RENAL VEIN REMOVAL ) AICD: No Arteriovenous Shunt: No Cardiac Surgery: Yes (LIGATION OF THE INFERIOR VENA CAVA ) Ear Surgery: No Endocrine Surgery: No Eye Surgery: No Genitourinary Surgery: No Gynecologic Surgery: No Insulin Pump: No Joint Replacement: No Neurologic Surgery: Yes (kyphoplasty) Oral Surgery: Yes (TONSILECTOMY ) Pacemaker: No Thoracic Surgery: Yes (VENA CAVA THROMBUS REMOVAL ) Tonsillectomy: Yes Other Surgery: Yes (LEFT NEPHRECTOMY, RENAL VEIN REMOVAL) Social History Alcohol Use: Yes (ONE DRINK DAILY) Tobacco Use: No (quit 4 years ago ) Substance Use: No Allergies-Medications (Allergen,Severity, Reaction): Coded Allergies: propofol (Unverified Allergy, Severe, PT DENIES, 12/03/16) Reported Meds & Prescriptions Reported Meds & Active Scripts Active Zofran Odt (Ondansetron Odt) 4 Mg Tab 4 Mg SL Q6HR PRN Reported Lenvima (Lenvatinib Mesylate) 18 Mg/Day Capsule 18 Mg PO DAILY Cephalexin 250 Mg Tab 250 Mg PO Q6H Tramadol (Tramadol HCl) 50 Mg Tab 50 Mg PO Q4H PRN Amlodipine (Amlodipine Besylate) 5 Mg Tab 5 Mg PO DAILY Zetia (Ezetimibe) 10 Mg Tab 5 Mg PO DAILY Atorvastatin (Atorvastatin Calcium) 10 Mg Tab 10 Mg PO HS Omeprazole 20 Mg Tab 20 Mg PO DAILY Review of Systems General / Constitutional: No: Fever Eyes: No: Visual changes HENT: No: Headaches Cardiovascular: No: Chest Pain or Discomfort Respiratory: No: Shortness of Breath Gastrointestinal: Positive: Nausea, Vomiting, Abdominal Pain Genitourinary: No: Dysuria Musculoskeletal: No: Pain Skin: No Rash Neurologic: No: Weakness Psychiatric: No: Depression Endocrine: No: Polydipsia Hematologic/Lymphatic: No: Easy Bruising Physical Exam Narrative GENERAL: Well-nourished, well-developed patient with vomiting. SKIN: Focused skin assessment reveals no rash and nodules. Skin is Warm and dry. HEAD: Atraumatic. Normocephalic. EYES: Pupils equal and round. No scleral icterus. No injection or drainage. ENT: No nasal bleeding or discharge. Mucous membranes pink and moist. NECK: Trachea midline. No JVD. CARDIOVASCULAR: Regular rate and rhythm. No murmur appreciated. RESPIRATORY: No accessory muscle use. Clear to auscultation. Breath sounds equal bilaterally. GASTROINTESTINAL: Abdomen soft, non-tender, nondistended. Hepatic and splenic margins not palpable. MUSCULOSKELETAL: No obvious deformities. No clubbing. No cyanosis. No edema. NEUROLOGICAL: Awake and alert. No obvious cranial nerve deficits. Motor grossly within normal limits. Normal speech. PSYCHIATRIC: Appropriate mood and affect; insight and judgment normal. Data Data Last Documented VS Vital Signs Date Time Temp Pulse Resp B/P (MAP) Pulse Ox O2 Delivery O2 Flow Rate FiO2 01/14/17 17:26 97 Room Air 01/14/17 16:45 97.5 88 19 142/71 (94) Orders Orders Complete Blood Count With Diff (01/14/17 16:46) Comprehensive Metabolic Panel (01/14/17 16:46) Lipase (01/14/17 16:46) Iv Access Insert/Monitor (01/14/17 16:46) Ecg Monitoring (01/14/17 16:46) Oximetry (01/14/17 16:46) NPO (01/14/17 16:46) Sodium Chloride 0.9% Flush (Ns Flush) (01/14/17 17:00) Promethazine Inj (Phenergan Inj) (01/14/17 17:00) Prochlorperazine Inj (Compazine Inj) (01/14/17 17:00) Sodium Chlor 0.9% 1000 Ml Inj (Ns 1000 M (01/14/17 17:00) Ondansetron Inj (Zofran Inj) (01/14/17 17:45) Metoclopramide Inj (Reglan Inj) (01/14/17 17:45) Labs Laboratory Tests Test 01/14/17 17:11 White Blood Count 6.4 TH/MM3 Red Blood Count 4.57 MIL/MM3 Hemoglobin 12.9 GM/DL Hematocrit 38.8 % Mean Corpuscular Volume 84.9 FL Mean Corpuscular Hemoglobin 28.3 PG Mean Corpuscular Hemoglobin Concent 33.3 % Red Cell Distribution Width 13.0 % Platelet Count 103 TH/MM3 Mean Platelet Volume 7.9 FL Neutrophils (%) (Auto) 57.0 % Lymphocytes (%) (Auto) 35.9 % Monocytes (%) (Auto) 5.0 % Eosinophils (%) (Auto) 1.4 % Basophils (%) (Auto) 0.7 % Neutrophils # (Auto) 3.7 TH/MM3 Lymphocytes # (Auto) 2.3 TH/MM3 Monocytes # (Auto) 0.3 TH/MM3 Eosinophils # (Auto) 0.1 TH/MM3 Basophils # (Auto) 0.0 TH/MM3 CBC Comment DIFF FINAL Differential Comment Blood Urea Nitrogen 19 MG/DL Creatinine 1.20 MG/DL Random Glucose 176 MG/DL Total Protein 7.4 GM/DL Albumin 3.4 GM/DL Calcium Level 9.6 MG/DL Alkaline Phosphatase 122 U/L Aspartate Amino Transf (AST/SGOT) 73 U/L Alanine Aminotransferase (ALT/SGPT) 74 U/L Total Bilirubin 0.5 MG/DL Sodium Level 140 MEQ/L Potassium Level 4.0 MEQ/L Chloride Level 108 MEQ/L Carbon Dioxide Level 20.0 MEQ/L Anion Gap 12 MEQ/L Estimat Glomerular Filtration Rate 58 ML/MIN Lipase 117 U/L [facility] Medical Decision Making Medical Screen Exam Complete: Yes Emergency Medical Condition: Yes Medical Record Reviewed: Yes Differential Diagnosis Cyclical vomiting syndrome, chemotherapy side effect, gastroenteritis, pancreatitis, dehydration Narrative Course I have reviewed the patient's electronic medical record. He's been here multiple times for vomiting IV placed I gave him IV Compazine and IM Phenergan I gave him 1 L normal saline IV bolus CBC is normal Metabolic profile is normal LFTs are normal Lipase is normal Abdomen is soft and benign and nontender Patient continued having nausea and vomiting despite the above so I gave him IV Zofran and IV Reglan On third recheck patient with significant generalized weakness and still vomiting I'm recommending 23 hour observation for intractable vomiting. Not suspecting obstructive process. Has soft benign abdomen and this is a recurrent chronic intermittent problem. He is required hospitalization for it periodically over the years. I placed a call to the hospitalist to discuss. He is a frail elderly man on chemotherapy with intractable vomiting despite 4 separate medications in the ER. Diagnosis Primary Impression: Intractable nausea and vomiting Qualified Codes: R11.2 - Nausea with vomiting, unspecified Additional Impressions: Generalized weakness Maintenance chemotherapy following disease Metastatic renal cell carcinoma to bone Admitting Information Admitting Physician Requests: Observation Huy Parikh MD Jan 14, 2017 16:55
[2017-01-14] MEDS ORDERED: PROMETHAZINE INJ 25 MG/ML VIAL IM ONE (17:00)
[2017-01-14] MEDS ORDERED: SODIUM CHLOR 0.9% 1000 ML INJ 1,000 ML IV ONE (17:00)
[2017-01-14] MEDS ORDERED: PROCHLORPERAZINE INJ 10 MG/2 ML VIAL IV PUSH ONE (17:00)
[2017-01-14] MEDS ORDERED: SODIUM CHLORIDE 0.9% FLUSH 10 ML FLUSH IV FLUSH PRN ×2 (17:00→19:00)
[2017-01-14 17:17] LABS: AUTOMATED NEUTROPHIL # 3.7 TH/MM3 (1.8-7.7); BASOPHIL % 0.7 % (0.0-2.0); EOSINOPHIL # 0.1 TH/MM3 (0-0.4); EOSINOPHIL % 1.4 % (0.0-4.0); HEMATOCRIT 38.8 % (39.0-51.0); HEMO FLAGS DIFF FINAL; LYMPH % 35.9 % (9.0-44.0); LYMPHOCYTE # 2.3 TH/MM3 (1.0-4.8); MEAN CELL VOLUME 84.9 FL (80.0-100.0); MEAN CORPUSCULAR HEMOGLOBIN 28.3 PG (27.0-34.0); MEAN CORPUSCULAR HGB CONC 33.3 % (32.0-36.0); PLATELET COUNT 103 TH/MM3 (150-450); RED BLOOD COUNT 4.57 MIL/MM3 (4.50-5.90); WHITE BLOOD COUNT 6.4 TH/MM3 (4.0-11.0)
[2017-01-14 17:25] LABS: CHLORIDE 108 MEQ/L (98-107); SODIUM (NA) 140 MEQ/L (136-145)
[2017-01-14 17:26] VITALS: O2SAT 97
[2017-01-14 17:28] LABS: ANION GAP 12 MEQ/L (5-15)
[2017-01-14 17:29] LABS: BLOOD UREA NITROGEN 19 MG/DL (7-18)
[2017-01-14 17:31] LABS: ALT (GPT) 74 U/L (12-78); GLOMERULAR FILTRATION RATE 58 ML/MIN (>89)
[2017-01-14 17:33] LABS: TOTAL BILIRUBIN ADULT 0.5 MG/DL (0.2-1.0)
[2017-01-14 17:34] LABS: ALKALINE PHOSPHATASE 122 U/L (45-117)
[2017-01-14 17:35] LABS: AST (GOT) 73 U/L (15-37)
[2017-01-14] MEDS ORDERED: METOCLOPRAMIDE HCL 10 MG/2 ML VIAL IV PUSH ONE (17:45)
[2017-01-14] MEDS ORDERED: ONDANSETRON HCL 4 MG/2 ML VIAL IVP ONE (17:45)
[2017-01-14] MEDS ORDERED: TRAM50TA PO (17:55)
[2017-01-14] MEDS ORDERED: AMLO5TAB2 PO (17:55)
[2017-01-14] MEDS ORDERED: CEPH250T PO (17:55)
[2017-01-14] MEDS ORDERED: LENV18CA PO (17:56)
[2017-01-14 18:10] VITALS: BP 151/75; PULSE 89; RESP 18; O2SAT 92
[2017-01-14 18:39] VITALS: BP 137/65; PULSE 103; RESP 18; O2SAT 97
[2017-01-14 19:00] VITALS: BP 140/79; PULSE 107; RESP 20; TEMP 98.5; O2SAT 97
[2017-01-14] MEDS ORDERED: LACTULOSE SYRUP 20 GM/30 ML CUP PO PRN (19:00)
[2017-01-14] MEDS ORDERED: METOCLOPRAMIDE HCL 10 MG/2 ML VIAL IV PUSH PRN (19:00)
[2017-01-14] MEDS ORDERED: PROCHLORPERAZINE 25 MG SUPP RECTAL PRN (19:00)
[2017-01-14] MEDS ORDERED: MAGNESIUM HYDROXIDE SUSP 30 ML CUP PO PRN (19:00)
[2017-01-14] MEDS ORDERED: SENNOSIDES 8.6 MG TAB PO PRN (19:00)
[2017-01-14] MEDS ORDERED: BISACODYL 10 MG SUPP RECTAL PRN (19:00)
[2017-01-14] MEDS ORDERED: ONDANSETRON HCL 4 MG/2 ML VIAL IVP PRN (19:00)
[2017-01-14] MEDS ORDERED: NALOXONE HCL 0.4 MG/ML AMP IV PUSH PRN (19:00)
[2017-01-14] MEDS ORDERED: ACETAMINOPHEN 325 MG TAB PO PRN (19:00)
[2017-01-14] MEDS ORDERED: MORPHINE SULFATE 4 MG/ML INJ IV PUSH PRN (19:00)
[2017-01-14] MEDS: SODIUM CHLOR 0.9% 1000 ML INJ 1,000 ML IV SCH (19:30)
[2017-01-14 20:00] VITALS: BP 146/79; PULSE 111; RESP 20; TEMP 96.9; O2SAT 99
[2017-01-14] MEDS: SODIUM CHLORIDE 0.9% FLUSH 10 ML FLUSH IV FLUSH SCH (21:00)
[2017-01-15] VITALS: BP 154/87; PULSE 108; RESP 18; TEMP 96.2; O2SAT 96
[2017-01-15] MEDS: SODIUM CHLOR 0.9% 1000 ML INJ 1,000 ML IV SCH ×2 (05:51→15:55)
[2017-01-15 06:58] LABS: POTASSIUM 3.8 MEQ/L (3.5-5.1)
[2017-01-15 07:03] LABS: BICARBONATE 26.9 MEQ/L (21.0-32.0)
[2017-01-15 08:00] VITALS: BP 132/63; PULSE 102; RESP 17; TEMP 96.1; O2SAT 94
--- NOTE | 2017-01-15 09:18 | HHI.HP ---
[facility] Service [facility] Primary Care Physician Lawrence Mata MD Admission Diagnosis intract vomiting, gen weakness,met cancer on chemo Diagnoses: Travel History International Travel<30 Days: No Contact w/Intl Traveler <30 Da: No Traveled to Known Affected Are: No History of Present Illness This is a pleasant 81-year-old male with past medical history of metastatic renal cell carcinoma who is on daily oral chemotherapy with Lenvima who presents to the ER yesterday with a one-day history of intractable nausea and vomiting. The patient states that he has had ongoing problems with intermittent nausea and vomiting and he states his sources never been found. His GI doctor is Dr. adelia lundberg who he sees for Tabares's esophagus. The patient has metastatic disease to his iliac crest, T7 and L2 and has received radiation therapy for those. He is followed at [facility] cancer [place]. The patient states that he vomited last night at 1 AM and again this morning. The patient denies any abdominal pain. Denies any vomiting the blood. Denies any diarrhea. No fevers or chills. No sick contacts. He states he feels generally weak. Review of Systems Constitutional: DENIES: Fever, Chills Ears, nose, mouth, throat: DENIES: Throat pain, Odynophagia Respiratory: DENIES: Cough, Shortness of breath Cardiovascular: DENIES: Chest pain, Palpitations Gastrointestinal: COMPLAINS OF: Nausea, Vomiting, DENIES: Abdominal pain, Black stools, Bloody stools, Diarrhea Genitourinary: DENIES: Urgency, Dysuria Musculoskeletal: COMPLAINS OF: Joint pain (the patient has pain in his bilateral hips when ambulating), Muscle aches Integumentary: DENIES: Rash Neurologic: DENIES: Abnormal gait, Headache Psychiatric: DENIES: Anxiety, Confusion Past Family Social History Past Medical History Renal cell cancer metastatic to the spine and iliac crest Osteoarthritis of the hips Tabares's esophagus Recurrent nausea and vomiting Past Surgical History Skin graft to the head after falling as a teen and suffering a concussion Inferior vena cava repair Nephrectomy Reported Medications Allergies Coded Allergies Type Severity Reaction Last Updated Verified propofol Allergy Severe PT DENIES 12/03/16 No Active Scripts Medications Dose Route/Sig Max Daily Dose Days Date Category Lenvima (Lenvatinib Mesylate) 18 Mg/Day Capsule 18 Mg PO DAILY 01/14/17 Reported Cephalexin 250 Mg Tab 250 Mg PO Q6H 01/14/17 Reported Tramadol (Tramadol HCl) 50 Mg Tab 50 Mg PO Q4H PRN 01/14/17 Reported Amlodipine (Amlodipine Besylate) 5 Mg Tab 5 Mg PO DAILY 01/14/17 Reported Zetia (Ezetimibe) 10 Mg Tab 5 Mg PO DAILY 11/28/16 Reported Zofran Odt (Ondansetron Odt) 4 Mg Tab 4 Mg SL Q6HR PRN 07/06/16 Rx Atorvastatin (Atorvastatin Calcium) 10 Mg Tab 10 Mg PO HS 04/06/16 Reported Omeprazole 20 Mg Tab 20 Mg PO DAILY 04/06/16 Reported Allergies: Coded Allergies: propofol (Unverified Allergy, Severe, PT DENIES, 12/03/16) Family History Reviewed and noncontributory Social History He did smoke for many years, quit cigarettes 50 years ago, smoked a pipe up until about 7 years ago. No alcohol use. He works part-time as an research assistant professor. Physical Exam Vital Signs Vital Signs Date Time Temp Pulse Resp B/P (MAP) Pulse Ox O2 Delivery O2 Flow Rate FiO2 01/15/17 08:00 96.1 102 17 132/63 (86) 94 01/15/17 00:00 96.2 108 18 154/87 (109) 96 01/14/17 20:23 01/14/17 20:00 96.9 111 20 146/79 (101) 99 01/14/17 19:00 98.5 107 20 140/79 (99) 97 Nasal Cannula 2.00 01/14/17 19:00 20 01/14/17 18:39 103 18 137/65 (89) 97 Nasal Cannula 2.00 01/14/17 18:10 89 18 151/75 (100) 92 Room Air 01/14/17 17:26 97 Room Air 01/14/17 16:45 97.5 88 19 142/71 (94) Physical Exam GENERAL: Well-nourished, well-developed pleasant elderly male patient. SKIN: Warm and dry. HEAD: Normocephalic. EYES: No scleral icterus. No injection or drainage. NECK: Supple, trachea midline. No JVD or lymphadenopathy. CARDIOVASCULAR: Regular rate and rhythm without murmurs, gallops, or rubs. RESPIRATORY: Breath sounds equal bilaterally. No accessory muscle use. GASTROINTESTINAL: Abdomen soft, non-tender, nondistended. EXTREMITIES: 1+ pedal edema. NEUROLOGICAL: Awake, alert, and oriented x 3. Non-focal. Cognitively sharp. Laboratory Laboratory Tests Test 01/14/17 17:11 01/15/17 05:05 White Blood Count 6.4 Red Blood Count 4.57 Hemoglobin 12.9 Hematocrit 38.8 Mean Corpuscular Volume 84.9 Mean Corpuscular Hemoglobin 28.3 Mean Corpuscular Hemoglobin Concent 33.3 Red Cell Distribution Width 13.0 Platelet Count 103 Mean Platelet Volume 7.9 Neutrophils (%) (Auto) 57.0 Lymphocytes (%) (Auto) 35.9 Monocytes (%) (Auto) 5.0 Eosinophils (%) (Auto) 1.4 Basophils (%) (Auto) 0.7 Neutrophils # (Auto) 3.7 Lymphocytes # (Auto) 2.3 Monocytes # (Auto) 0.3 Eosinophils # (Auto) 0.1 Basophils # (Auto) 0.0 CBC Comment DIFF FINAL Differential Comment Blood Urea Nitrogen 19 19 Creatinine 1.20 1.00 Random Glucose 176 139 Total Protein 7.4 Albumin 3.4 Calcium Level 9.6 8.8 Alkaline Phosphatase 122 Aspartate Amino Transf (AST/SGOT) 73 Alanine Aminotransferase (ALT/SGPT) 74 Total Bilirubin 0.5 Sodium Level 140 143 Potassium Level 4.0 3.8 Chloride Level 108 108 Carbon Dioxide Level 20.0 26.9 Anion Gap 12 8 Estimat Glomerular Filtration Rate 58 72 Lipase 117 Result Diagram: 01/14/17 1711 01/15/17 0505 Caprini VTE Risk Assessment Caprini VTE Risk Assessment: Mod/High Risk (score >= 2) Caprini Risk Assessment Model Point Value = 1 Point Value = 2 Point Value = 3 Point Value = 5 Age 41-60 Minor surgery BMI > 25 kg/m2 Swollen legs Varicose veins or History of unexplained or recurrent spontaneous Oral contraceptives or hormone replacement Sepsis (< 1 month) Serious lung disease, including pneumonia (< 1 month) Abnormal pulmonary function Acute myocardial infarction Congestive heart failure (< 1 month) History of inflammatory bowel disease Medical patient at bed rest Age 61-74 Arthroscopic surgery Major open surgery (> 45 min) Laparoscopic surgery (> 45 min) Malignancy Confined to bed (> 72 hours) Immobilizing plaster cast Central venous access Age >= 75 History of VTE Family history of VTE Factor V Leiden Prothrombin [id number] Lupus anticoagulant Anticardiolipin antibodies Elevated serum homocysteine Heparin-induced thrombocytopenia Other congenital or acquired thrombophilia Stroke (< 1 month) Elective arthroplasty Hip, pelvis, or leg fracture Acute spinal cord injury (< 1 month) Prophylaxis Regimen Total Risk Factor Score Risk Level Prophylaxis Regimen 0-1 Low Early ambulation 2 Moderate Order ONE of the following: *Sequential Compression Device (SCD) *Heparin 5000 units SQ BID 3-4 Higher Order ONE of the following medications: *Heparin 5000 units SQ TID *Enoxaparin/Lovenox 40 mg SQ daily (WT < 150 kg, CrCl > 30 mL/min) *Enoxaparin/Lovenox 30 mg SQ daily (WT < 150 kg, CrCl > 10-29 mL/min) *Enoxaparin/Lovenox 30 mg SQ BID (WT < 150 kg, CrCl > 30 mL/min) AND/OR *Sequential Compression Device (SCD) 5 or more Highest Order ONE of the following medications: *Heparin 5000 units SQ TID (Preferred with Epidurals) *Enoxaparin/Lovenox 40 mg SQ daily (WT < 150 kg, CrCl > 30 mL/min) *Enoxaparin/Lovenox 30 mg SQ daily (WT < 150 kg, CrCl > 10-29 mL/min) *Enoxaparin/Lovenox 30 mg SQ BID (WT < 150 kg, CrCl > 30 mL/min) AND *Sequential Compression Device (SCD) Assessment and Plan Problem List: (1) Intractable nausea and vomiting ICD Code: R11.2 - Nausea with vomiting, unspecified Status: Resolved (2) Metastatic renal cell carcinoma to bone ICD Code: C79.51 - Secondary malignant neoplasm of bone; C64.9 - Malignant neoplasm of unspecified kidney, except renal pelvis Status: Acute (3) Maintenance chemotherapy following disease ICD Code: Z51.11 - Encounter for antineoplastic chemotherapy Status: Acute Assessment and Plan -Intractable nausea and vomiting with dehydration- a recurrent problem for the patient. He is on oral chemotherapy Lenvima. Continue supportive care with IV fluids, anti-medics. -Renal cell cancer metastatic to the spine and iliac crest - continue Lenvima. -Osteoarthritis of the hips - pain control as needed. -Tabares's esophagus - continue PPI -Pedal edema, continue LIZZ hose -Thrombocytopenia likely related to the chemotherapy. Monitor CBC. -DVT prophylaxis with LIZZ hose and SCDs. Problem Qualifiers (1) Intractable nausea and vomiting: Qualified Codes: R11.2 - Nausea with vomiting, unspecified Martha Vidal MD Jan 15, 2017 09:18
[2017-01-15 12:00] VITALS: BP 147/82; PULSE 88; RESP 18; TEMP 96; O2SAT 98
[2017-01-15] MEDS: SODIUM CHLORIDE 0.9% FLUSH 10 ML FLUSH IV FLUSH SCH ×2 (13:21→21:00)
[2017-01-15 16:00] VITALS: BP 150/86; PULSE 88; RESP 20; TEMP 96.2; O2SAT 97
[2017-01-15 20:00] VITALS: BP 146/77; PULSE 85; RESP 16; TEMP 97.5; O2SAT 93
[2017-01-16] VITALS: BP 157/83; PULSE 80; RESP 16; TEMP 97.5; O2SAT 100
[2017-01-16] MEDS: SODIUM CHLOR 0.9% 1000 ML INJ 1,000 ML IV SCH ×3 (01:55→18:01)
[2017-01-16 08:00] VITALS: BP 168/90; PULSE 86; RESP 20; TEMP 97.1; O2SAT 97
[2017-01-16] MEDS: SODIUM CHLORIDE 0.9% FLUSH 10 ML FLUSH IV FLUSH SCH ×2 (09:05→21:26)
--- NOTE | 2017-01-16 11:21 | HHI.PR ---
Subjective Remarks Nausea and vomiting have improved. Patient still does not have an appetite. He started to tolerate clear liquid intake this morning. Objective Vital Signs Date Time Temp Pulse Resp B/P (MAP) Pulse Ox O2 Delivery O2 Flow Rate FiO2 01/16/17 08:00 97.1 86 20 168/90 (116) 97 01/16/17 00:00 97.5 80 16 157/83 (107) 100 01/15/17 20:00 97.5 85 16 146/77 (100) 93 01/15/17 16:00 96.2 88 20 150/86 (107) 97 01/15/17 12:00 96.0 88 18 147/82 (103) 98 I/O 01/15/17 01/15/17 01/15/17 01/16/17 01/16/17 01/16/17 07:00 15:00 23:00 07:00 15:00 23:00 Intake Total 1000 ml 1240 ml 1240 ml Output Total 500 ml 400 ml Balance 500 ml 1240 ml 840 ml Intake Oral 240 ml 240 ml IV Total 1000 ml 1000 ml 1000 ml Output Urine Total 500 ml 400 ml # Voids 2 2 Result Diagram: 01/14/17 1711 01/15/17 0505 Objective Remarks GENERAL: NAD, A&Ox3 HEAD: Normocephalic. NECK: Supple, trachea midline. No lymphadenopathy. EYES: No scleral icterus. No injection or drainage. CARDIOVASCULAR: Regular rate and rhythm without murmurs, gallops, or rubs. RESPIRATORY: Breath sounds equal bilaterally. No accessory muscle use. GASTROINTESTINAL: Abdomen soft, non-tender, nondistended. MUSCULOSKELETAL: No cyanosis, or edema. SKIN: Warm and dry. NEURO: No focal neurological deficitis. A/P Problem List: (1) Intractable nausea and vomiting ICD Code: R11.2 - Nausea with vomiting, unspecified Status: Resolved (2) Metastatic renal cell carcinoma to bone ICD Code: C79.51 - Secondary malignant neoplasm of bone; C64.9 - Malignant neoplasm of unspecified kidney, except renal pelvis Status: Acute (3) Maintenance chemotherapy following disease ICD Code: Z51.11 - Encounter for antineoplastic chemotherapy Status: Acute Assessment and Plan Assessment and Plan 81-year-old male admitted secondary to hyperemesis, related to cancer cancer treatment. Cancer-related hyperemesis Continue IV fluids Advance diet from clear liquids to soft diet Monitor for tolerance of by mouth intake Renal cell cancer with metastasis Thombocytopenia Continue Lenvima Follow CBC Etiology of thrombocytopenia is from cancer/chemo Osteoarthritis Tabares's esophagus Recurrent pedal edema No change to baseline treatments DVT prophylaxis SCDs Problem Qualifiers (1) Intractable nausea and vomiting: Qualified Codes: R11.2 - Nausea with vomiting, unspecified Zeke Lee MD Jan 16, 2017 11:21
[2017-01-16 12:00] VITALS: BP 166/83; PULSE 70; RESP 20; TEMP 97.3; O2SAT 98
[2017-01-16] MEDS ORDERED: ENALAPRILAT 1.25 MG/ML VIAL IV PUSH PRN (15:15)
[2017-01-16] MEDS ORDERED: cloNIDine HCL 0.1 MG TAB PO PRN (15:15)
[2017-01-16] MEDS ORDERED: ONDANSETRON ODT 4 MG TAB SL PRN (15:15)
[2017-01-16] MEDS ORDERED: traMADol HCL 50 MG TAB PO PRN (15:15)
[2017-01-16] MEDS ORDERED: EVEROLIMUS (15:38)
[2017-01-16 16:00] VITALS: BP 170/95; PULSE 81; RESP 22; TEMP 96.5; O2SAT 99
[2017-01-16] MEDS: CEPHALEXIN MONOHYDRATE 250 MG CAP PO SCH ×2 (17:50→23:58)
[2017-01-16 20:00] VITALS: BP 104/75; PULSE 71; RESP 20; TEMP 97.2; O2SAT 98
[2017-01-16] MEDS ORDERED: ATORVASTATIN 10 MG TAB PO SCH (21:00)
[2017-01-17 04:00] VITALS: BP 123/74; PULSE 66; RESP 16; TEMP 98.3; O2SAT 99
[2017-01-17] MEDS: CEPHALEXIN MONOHYDRATE 250 MG CAP PO SCH (06:00)
[2017-01-17] MEDS: SODIUM CHLOR 0.9% 1000 ML INJ 1,000 ML IV SCH (06:15)
[2017-01-17 08:00] VITALS: BP 138/94; PULSE 92; RESP 20; TEMP 98.1; O2SAT 94
[2017-01-17] MEDS ORDERED: EVEROLIMUS 5 MG PO SCH (09:00)
[2017-01-17] MEDS ORDERED: LENVATINIB MESYLATE 4 MG PO SCH (09:00)
[2017-01-17] MEDS ORDERED: LENVATINIB MESYLATE 10 MG PO SCH (09:00)
[2017-01-17] MEDS ORDERED: LENVATINIB MESYLATE PO SCH (09:00)
[2017-01-17] MEDS ORDERED: PANTOPRAZOLE SOD 20 MG DELAYED RELEASE TAB PO SCH (09:00)
[2017-01-17] MEDS ORDERED: EZETIMIBE 10 MG TAB PO SCH (09:00)
[2017-01-17] MEDS ORDERED: amLODIPine BESYLATE 5 MG TAB PO SCH (09:00)
[2017-01-17] MEDS: SODIUM CHLORIDE 0.9% FLUSH 10 ML FLUSH IV FLUSH SCH (09:56)
--- NOTE | 2017-01-17 10:17 | HHI.DS ---
Discharge Summary Admission Date Jan 15, 2017 at 09:32 Discharge Date: Jan 17, 2017 Admitting Diagnosis intract vomiting, gen weakness,met cancer on chemo (1) Intractable nausea and vomiting ICD Code: R11.2 - Nausea with vomiting, unspecified Diagnosis: Principal Status: Resolved (2) Metastatic renal cell carcinoma to bone ICD Code: C79.51 - Secondary malignant neoplasm of bone; C64.9 - Malignant neoplasm of unspecified kidney, except renal pelvis Diagnosis: Principal Status: Acute (3) Maintenance chemotherapy following disease ICD Code: Z51.11 - Encounter for antineoplastic chemotherapy Diagnosis: Principal Status: Acute Procedures None Brief History - From Admission This is a pleasant 81-year-old male with past medical history of metastatic renal cell carcinoma who is on daily oral chemotherapy with Lenvima who presents to the ER yesterday with a one-day history of intractable nausea and vomiting. The patient states that he has had ongoing problems with intermittent nausea and vomiting and he states his sources never been found. His GI doctor is Dr. adelia lundberg who he sees for Tabares's esophagus. The patient has metastatic disease to his iliac crest, T7 and L2 and has received radiation therapy for those. He is followed at [facility] cancer [place]. The patient states that he vomited last night at 1 AM and again this morning. The patient denies any abdominal pain. Denies any vomiting the blood. Denies any diarrhea. No fevers or chills. No sick contacts. He states he feels generally weak. CBC/BMP: 01/14/17 1711 01/15/17 0505 Significant Findings Laboratory Tests Test 01/14/17 17:11 01/15/17 05:05 Hemoglobin 12.9 GM/DL (13.0-17.0) Hematocrit 38.8 % (39.0-51.0) Platelet Count 103 TH/MM3 (150-450) Blood Urea Nitrogen 19 MG/DL (7-18) 19 MG/DL (7-18) Random Glucose 176 MG/DL (74-106) 139 MG/DL (74-106) Alkaline Phosphatase 122 U/L (45-117) Aspartate Amino Transf (AST/SGOT) 73 U/L (15-37) Chloride Level 108 MEQ/L (98-107) 108 MEQ/L (98-107) Carbon Dioxide Level 20.0 MEQ/L (21.0-32.0) Estimat Glomerular Filtration Rate 58 ML/MIN (>89) 72 ML/MIN (>89) Hospital Course Mr. Capps is a 81-year-old male. She was admitted secondary to hyperemesis. This was either directly related to his chemotherapy or secondary to his chemotherapy (predisposition to viral etiologies due to immunocompromise or syndrome secondary to his metastatic cancer). In the first 24 hours he did not have significant improvement in his appetite, though his nausea had improved with treatments. Due today he's returning to baseline and has good by mouth intake now without vomiting after taking food. Medically at this point he is stable for discharge to home to resume all prior treatments. He can discharge home today. Pt Condition on Discharge: Stable Discharge Disposition: Discharge Home Discharge Time: <= 30 minutes Discharge Instructions DIET: Follow Instructions for: As Tolerated, No Restrictions Activities you can perform: Regular-No Restrictions Follow up Referrals: PCP Follow-up - 2 Weeks Continued Medications: Amlodipine (Amlodipine) 5 Mg Tab 5 MG PO DAILY for Blood Pressure Management, #30 TAB 0 Refills Atorvastatin (Atorvastatin) 10 Mg Tab 10 MG PO HS for Cholesterol Management, #30 TAB 0 Refills Ezetimibe (Zetia) 10 Mg Tab 5 MG PO DAILY, #30 TAB 0 Refills Lenvatinib Mesylate (Lenvima) 18 Mg/Day Capsule 18 MG PO DAILY Omeprazole (Omeprazole) 20 Mg Tab 20 MG PO DAILY, #30 TAB 0 Refills Ondansetron Odt (Zofran Odt) 4 Mg Tab 4 MG SL Q6HR PRN for Nausea/Vomiting, #30 TAB 0 Refills Tramadol (Tramadol) 50 Mg Tab 50 MG PO Q4H PRN for PAIN, TAB 0 Refills [everolimus] () 5 MG DAILY Discontinued Medications: Cephalexin (Cephalexin) 250 Mg Tab 250 MG PO Q6H for Infection, TAB 0 Refills Zeke Lee MD Jan 17, 2017 10:17
== END 2017-01-17 11:15 | disposition home or self-care (01) | DRG 392 ==
LOC: PHED 16:32 → PHEDA 18:47 → PH3B 20:26 → OBSVTOIN 01-15 09:32
PROVIDERS: ADMIT Hospitalist; ATTEND Hospitalist
DX: R11.2 Nausea with vomiting, unspecified (principal); C79.51 Secondary malignant neoplasm of bone; E86.0 Dehydration; D69.59 Other secondary thrombocytopenia; C64.9 Malignant neoplasm of unspecified kidney, except renal pelvis; M16.0 Bilateral primary osteoarthritis of hip; K22.70 Barrett's esophagus without dysplasia; T45.1X5A Adverse effect of antineoplastic and immunosuppressive drugs, initial encounter; Z92.21 Personal history of antineoplastic chemotherapy; R60.0 Localized edema
CPT/HCPCS: 80048; 80053; 83690; 85025; 96361; 96372; 96374; 96375; G0378; G8987-GP; G8988-GP; J0780; J2405; J2550; J2765; J7030

== ENCOUNTER 2017-02-04 12:14 | Emergency (ER) | payer MEDICARE ==
[~2017-02-04] VITALS: Ht 170.2 cm; Wt 90.1 kg
[~2017-02-04 12:14] MED LIST changes: -ACET-822 PO; +AMLO5TAB2 PO; +EVEROLIMUS; +LENV18CA PO; -PROC10TA PO; +TRAM50TA PO; -TUMS500C CHEW
[2017-02-04 12:23] VITALS: BP 152/89; PULSE 102; RESP 16; TEMP 97.5; O2SAT 98
[2017-02-04] MEDS ORDERED: SODIUM CHLOR 0.9% 1000 ML INJ 1,000 ML IV SCH (12:37)
[2017-02-04] MEDS ORDERED: CEPH250T PO (12:43)
--- NOTE | 2017-02-04 12:43 | PD ---
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 Patient is currently under the care of Dr. Armijo (urologist) as well as [facility]. He is undergoing his 3rd cycle of the clinical trial on Lenvatinib at this time. Patient reports that since yesterday afternoon, around 4 PM, he has been feeling nauseous and has been vomiting. Patient tried taking Zofran with no relief of symptoms. He reports that he woke up this morning and has been feeling nauseous and has been vomiting. Patient has not been able to keep any fluids or food all day today. Patient's did call the clinical trial coordinator at [facility] and was told to bring patient to the ER for IV hydration. Patient denies any fevers, reports chills, denies any abdominal pain at this time. Patient denies any chest pain or shortness of breath, no other complaints at this time. PFSH Past Medical History Arthritis: No Asthma: No Autoimmune Disease: No Anxiety: No Depression: No Heart Rhythm Problems: Yes ( not aware of rhythm issues ) Cancer: Yes (RENAL WITH NODULES, t7, l2, iliac crest ) Cardiovascular Problems: Yes High Cholesterol: Yes Chemotherapy: Yes Chest Pain: No Congestive Heart Failure: No COPD: No Cerebrovascular Accident: No Diabetes: No Diminished Hearing: No Endocrine: No Gastrointestinal Disorders: Yes (HX RECTUS HEMATOMA) GERD: Yes (BARRETS ESOPHAGUS ) Genitourinary: Yes Headaches: No Hiatal Hernia: Yes Heparin Induced Thrombocytopen: No Hypertension: Yes Immune Disorder: No Implanted Vascular Access Dvce: No Kidney Stones: Yes Musculoskeletal: Yes (left illiac nodole. radiation to left hip-pain prior ) Neurologic: Yes ( states no neuro issues, did have kyphoplasty T7) Psychiatric: No Reproductive: No Respiratory: Yes Immunizations Current: Yes Migraines: No Radiation Therapy: Yes (5 LEFT HIP) Renal Failure: No Seizures: No Sickle Cell Disease: No Sleep Apnea: No Thyroid Disease: No Ulcer: No Past Surgical History Abdominal Surgery: Yes (LEFT NEPHRECTOMY AND LEFT RENAL VEIN REMOVAL ) AICD: No Arteriovenous Shunt: No Cardiac Surgery: Yes (LIGATION OF THE INFERIOR VENA CAVA ) Ear Surgery: No Endocrine Surgery: No Eye Surgery: No Genitourinary Surgery: No Gynecologic Surgery: No Insulin Pump: No Joint Replacement: No Neurologic Surgery: Yes (kyphoplasty) Oral Surgery: Yes (TONSILECTOMY ) Pacemaker: No Thoracic Surgery: Yes (VENA CAVA THROMBUS REMOVAL ) Tonsillectomy: Yes Other Surgery: Yes (LEFT NEPHRECTOMY, RENAL VEIN REMOVAL) Social History Alcohol Use: Yes (ONE DRINK DAILY) Tobacco Use: No (quit 4 years ago ) Substance Use: No Allergies-Medications (Allergen,Severity, Reaction): Coded Allergies: No Known Allergies (Unverified , 02/04/17) Reported Meds & Prescriptions Reported Meds & Active Scripts Active Zofran Odt (Ondansetron Odt) 4 Mg Tab 4 Mg SL Q6HR PRN Reported Cephalexin 250 Mg Tab 250 Mg PO Q6H [everolimus] 5 Mg DAILY Lenvima (Lenvatinib Mesylate) 18 Mg/Day Capsule 18 Mg PO DAILY Tramadol (Tramadol HCl) 50 Mg Tab 50 Mg PO Q4H PRN Amlodipine (Amlodipine Besylate) 5 Mg Tab 5 Mg PO DAILY Zetia (Ezetimibe) 10 Mg Tab 5 Mg PO DAILY Atorvastatin (Atorvastatin Calcium) 10 Mg Tab 10 Mg PO HS Omeprazole 20 Mg Tab 20 Mg PO DAILY Review of Systems General / Constitutional: Positive: Chills, No: Fever Eyes: No: Visual changes HENT: No: Headaches Cardiovascular: No: Chest Pain or Discomfort Respiratory: No: Shortness of Breath Gastrointestinal: Positive: Nausea, Vomiting, No: Diarrhea, Abdominal Pain, Constipation Genitourinary: No: Dysuria Musculoskeletal: No: Pain Skin: No Rash Neurologic: No: Weakness Psychiatric: No: Depression Endocrine: No: Polydipsia Hematologic/Lymphatic: No: Easy Bruising Physical Exam Narrative GENERAL: mild distress SKIN: Focused skin assessment warm/dry. HEAD: Atraumatic. Normocephalic. EYES:. No injection or drainage. ENT: No nasal bleeding or discharge. Mucous membranes pink and moist. NECK: Trachea midline. No JVD. CARDIOVASCULAR: Regular rate and rhythm. No murmur appreciated. RESPIRATORY: No accessory muscle use. Clear to auscultation. Breath sounds equal bilaterally. GASTROINTESTINAL: Abdomen soft, non-tender, nondistended. Hepatic and splenic margins not palpable. MUSCULOSKELETAL: No obvious deformities. No clubbing. No cyanosis. No edema. NEUROLOGICAL: Awake and alert. No obvious cranial nerve deficits. Motor grossly within normal limits. Normal speech. PSYCHIATRIC: Appropriate mood and affect; insight and judgment normal. Data Data Last Documented VS Vital Signs Date Time Temp Pulse Resp B/P (MAP) Pulse Ox O2 Delivery O2 Flow Rate FiO2 02/04/17 12:23 97.5 102 16 152/89 (110) 98 Orders Orders Basic Metabolic Panel (Bmp) (02/04/17 12:37) Complete Blood Count With Diff (02/04/17 12:37) Iv Access Insert/Monitor (02/04/17 12:37) Ondansetron Inj (Zofran Inj) (02/04/17 12:45) Sodium Chlor 0.9% 1000 Ml Inj (Ns 1000 M (02/04/17 12:37) Sodium Chloride 0.9% Flush (Ns Flush) (02/04/17 12:45) Famotidine Inj (Pepcid Inj) (02/04/17 12:45) Sodium Chlor 0.9% 1000 Ml Inj (Ns 1000 M (02/04/17 12:45) Labs Laboratory Tests Test 02/04/17 13:10 White Blood Count 4.0 TH/MM3 Red Blood Count 4.63 MIL/MM3 Hemoglobin 12.7 GM/DL Hematocrit 39.2 % Mean Corpuscular Volume 84.6 FL Mean Corpuscular Hemoglobin 27.4 PG Mean Corpuscular Hemoglobin Concent 32.4 % Red Cell Distribution Width 14.0 % Platelet Count 146 TH/MM3 Mean Platelet Volume 7.5 FL Neutrophils (%) (Auto) 68.6 % Lymphocytes (%) (Auto) 19.4 % Monocytes (%) (Auto) 9.7 % Eosinophils (%) (Auto) 0.1 % Basophils (%) (Auto) 2.2 % Neutrophils # (Auto) 2.7 TH/MM3 Lymphocytes # (Auto) 0.8 TH/MM3 Monocytes # (Auto) 0.4 TH/MM3 Eosinophils # (Auto) 0.0 TH/MM3 Basophils # (Auto) 0.1 TH/MM3 CBC Comment DIFF FINAL Differential Comment Blood Urea Nitrogen 19 MG/DL Creatinine 1.00 MG/DL Random Glucose 134 MG/DL Calcium Level 9.7 MG/DL Sodium Level 139 MEQ/L Potassium Level 3.5 MEQ/L Chloride Level 102 MEQ/L Carbon Dioxide Level 28.0 MEQ/L Anion Gap 9 MEQ/L Estimat Glomerular Filtration Rate 72 ML/MIN MDM Medical Decision Making Medical Screen Exam Complete: Yes Emergency Medical Condition: Yes Medical Record Reviewed: Yes Interpretation(s) Vital Signs Date Time Temp Pulse Resp B/P (MAP) Pulse Ox O2 Delivery O2 Flow Rate FiO2 02/04/17 12:23 97.5 102 16 152/89 (110) 98 Differential Diagnosis Differential includes electrolyte abnormality, gerd, gastritis, medication reaction Narrative Course 81-year-old male with history of large cell renal carcinoma currently undergoing clinical trials at [facility], presents to ER with c/o of nausea and vomiting since yesterday 4pm. Patient was sent to the ER by the cancer center for IVF and antiemetics. Patient with no other c/o except for nausea and vomiting. He denies any abdominal pain at this time. IVF and zofran ordered Vital Signs Date Time Temp Pulse Resp B/P (MAP) Pulse Ox O2 Delivery O2 Flow Rate FiO2 02/04/17 12:23 97.5 102 16 152/89 (110) 98 Pt's IV line infiltrated, patient now eating meal tray, he was able to drink 2 cups of apple juice and soup and pudding. Patient reports that he is feeling much better at this time. Will hold off at another attempt at IV line at this time as he is tolerating po's Patient re-evaluated, patient feeling much better with complete resolution of symptoms. Abdomen is soft, nontender, nondistended, no peritoneal signs. Patient will follow up with his physicians and will return to emergency room as needed. Procedures Procedure Narrative Ultrasound guided IV line Under ultrasound guidance, a 20-gauge needle was placed to left AC without difficulty. IV was placed for hydration as well as for medication administration Diagnosis Primary Impression: Nausea & vomiting Qualified Codes: R11.2 - Nausea with vomiting, unspecified Patient Instructions: General Instructions Additional Instructions: Please follow up with your primary care doctor as well as oncologist Return to ER as needed or if symptoms return Drink plenty of fluids Disposition: 01 DISCHARGE HOME Condition: Stable Mariam Garcias DO Feb 04, 2017 12:43
[2017-02-04] MEDS ORDERED: FAMOTIDINE 20 MG/2 ML VIAL IV PUSH ONE (12:45)
[2017-02-04] MEDS ORDERED: ONDANSETRON HCL 4 MG/2 ML VIAL IVP ONE (12:45)
[2017-02-04] MEDS ORDERED: SODIUM CHLOR 0.9% 1000 ML INJ 1,000 ML IV ONE (12:45)
[2017-02-04] MEDS ORDERED: SODIUM CHLORIDE 0.9% FLUSH 10 ML FLUSH IV FLUSH PRN (12:45)
[2017-02-04 13:15] LABS: AUTOMATED NEUTROPHIL # 2.7 TH/MM3 (1.8-7.7); BASOPHIL # 0.1 TH/MM3 (0-0.2); BASOPHIL % 2.2 % (0.0-2.0); EOSINOPHIL % 0.1 % (0.0-4.0); HEMATOCRIT 39.2 % (39.0-51.0); HEMO FLAGS DIFF FINAL; LYMPH % 19.4 % (9.0-44.0); LYMPHOCYTE # 0.8 TH/MM3 (1.0-4.8); MEAN CELL VOLUME 84.6 FL (80.0-100.0); MEAN CORPUSCULAR HEMOGLOBIN 27.4 PG (27.0-34.0); MEAN CORPUSCULAR HGB CONC 32.4 % (32.0-36.0); MONO % 9.7 % (0.0-8.0); NEUT % 68.6 % (16.0-70.0); PLATELET COUNT 146 TH/MM3 (150-450); RED BLOOD COUNT 4.63 MIL/MM3 (4.50-5.90)
[2017-02-04 13:21] LABS: POTASSIUM 3.5 MEQ/L (3.5-5.1)
[2017-02-04 15:08] VITALS: BP 145/72; PULSE 92; RESP 18; O2SAT 98
== END 2017-02-04 15:30 | disposition home or self-care (01) ==
LOC: PHED 12:14
DX: R11.2 Nausea with vomiting, unspecified (principal); C64.2 Malignant neoplasm of left kidney, except renal pelvis; Z79.899 Other long term (current) drug therapy; E78.5 Hyperlipidemia, unspecified; K22.70 Barrett's esophagus without dysplasia; K21.9 Gastro-esophageal reflux disease without esophagitis; Z87.442 Personal history of urinary calculi
CPT/HCPCS: 80048; 85025; 96361; 96374; 96375; 99284; J2405; J7030

== ENCOUNTER 2017-02-12 09:14 | Emergency (ER) | payer MEDICARE ==
[~2017-02-12] VITALS: Ht 170.2 cm; Wt 80.7 kg
[~2017-02-12 09:14] MED LIST changes: +CEPH250T PO
[2017-02-12 09:26] VITALS: BP 122/69; PULSE 78; RESP 18; TEMP 97.1; O2SAT 95
[2017-02-12] MEDS ORDERED: SODIUM CHLOR 0.9% 1000 ML INJ 1,000 ML IV SCH (10:15)
[2017-02-12] MEDS ORDERED: ONDANSETRON HCL 4 MG/2 ML VIAL IV PUSH ONE (10:15)
[2017-02-12] MEDS ORDERED: HYDROmorphone HCL PF 1 MG/ML VIAL IV PUSH ONE (10:15)
--- NOTE | 2017-02-12 10:23 | PD ---
HPI Chief Complaint: Pain: Acute or Chronic Time Seen by Provider: 09:54 Travel History International Travel<30 days: No Contact w/Intl Traveler<30days: No Traveled to known affect area: No History of Present Illness HPI This 81-year-old male is complaining of back pain. This pain started January 31. Physical therapy. He is getting off the bed and had increasing low back pain. He has a history of renal cell carcinoma. He is currently on a clinical trial at [facility] and is on lenvatinab and evorolimus. He is known to have bony metastasis. He has had a kyphoplasty at the T6 or T7 and he has had localized radiation to T6 and L2 at [facility] in November. He has been taking tramadol for pain without much response. He does not have any numbness or weakness. The pain is aggravated by movement. It is quite severe. He was seen in the emergency department last week because of vomiting but that has subsided. He has a history of vena cava ligation when he was in his 20s due to blood clots. 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 radiation to left hip-pain prior ) Neurologic: Yes ( states no neuro issues, did have kyphoplasty T7) Psychiatric: No Reproductive: No Respiratory: Yes Immunizations Current: Yes Migraines: No Radiation Therapy: Yes (5 LEFT HIP) Renal Failure: No Seizures: No Sickle Cell Disease: No Sleep Apnea: No Thyroid Disease: No Ulcer: No Past Surgical History Abdominal Surgery: Yes (LEFT NEPHRECTOMY AND LEFT RENAL VEIN REMOVAL ) AICD: No Arteriovenous Shunt: No Cardiac Surgery: Yes (LIGATION OF THE INFERIOR VENA CAVA ) Ear Surgery: No Endocrine Surgery: No Eye Surgery: No Genitourinary Surgery: No Gynecologic Surgery: No Insulin Pump: No Joint Replacement: No Neurologic Surgery: Yes (kyphoplasty) Oral Surgery: Yes (TONSILECTOMY ) Pacemaker: No Thoracic Surgery: Yes (VENA CAVA THROMBUS REMOVAL ) Tonsillectomy: Yes Other Surgery: Yes (LEFT NEPHRECTOMY, RENAL VEIN REMOVAL) Social History Alcohol Use: Yes (ONE DRINK DAILY) Tobacco Use: No (quit 4 years ago ) Substance Use: No Allergies-Medications (Allergen,Severity, Reaction): Coded Allergies: No Known Allergies (Unverified , 02/04/17) Reported Meds & Prescriptions Reported Meds & Active Scripts Active Reported Zetia (Ezetimibe) 10 Mg Tab 10 Mg PO DAILY Cephalexin 250 Mg Tab 250 Mg PO Q6H [everolimus] 5 Mg DAILY Lenvima (Lenvatinib Mesylate) 18 Mg/Day Capsule 18 Mg PO DAILY Tramadol (Tramadol HCl) 50 Mg Tab 50 Mg PO Q4H PRN Amlodipine (Amlodipine Besylate) 5 Mg Tab 5 Mg PO DAILY Atorvastatin (Atorvastatin Calcium) 10 Mg Tab 10 Mg PO HS Omeprazole 20 Mg Tab 20 Mg PO DAILY Review of Systems General / Constitutional: No: Fever, Chills Eyes: No: Diploplia, Blurred Vision HENT: No: Headaches Cardiovascular: No: Chest Pain or Discomfort Respiratory: No: Cough, Shortness of Breath Gastrointestinal: Positive: Nausea Genitourinary: No: Frequency Musculoskeletal: Positive: Pain, No: Myalgias, Arthralgias Physical Exam Narrative GENERAL well-developed male SKIN: Focused skin assessment warm/dry. HEAD: Atraumatic. Normocephalic. EYES: Pupils equal and round. No scleral icterus. No injection or drainage. ENT: No nasal bleeding or discharge. Mucous membranes pink and moist. NECK: Trachea midline. No JVD. CARDIOVASCULAR: Regular rate and rhythm. No murmur appreciated. RESPIRATORY: No accessory muscle use. Clear to auscultation. Breath sounds equal bilaterally. GASTROINTESTINAL: Abdomen soft, non-tender, nondistended. Hepatic and splenic margins not palpable. MUSCULOSKELETAL: No obvious deformities. No clubbing. No cyanosis. No edema. He does have tenderness of the lower back. NEUROLOGICAL: Awake and alert. No obvious cranial nerve deficits. Motor grossly within normal limits. Normal speech. Sensation of the legs is intact. He has good strength in plantar and dorsiflexion PSYCHIATRIC: Appropriate mood and affect; insight and judgment normal. Data Data Last Documented VS Vital Signs Date Time Temp Pulse Resp B/P (MAP) Pulse Ox O2 Delivery O2 Flow Rate FiO2 02/12/17 09:26 97.1 78 18 122/69 (86) 95 Orders Orders Complete Blood Count With Diff (02/12/17 10:13) Comprehensive Metabolic Panel (02/12/17 10:13) Sodium Chlor 0.9% 1000 Ml Inj (Ns 1000 M (02/12/17 10:15) Ondansetron Inj (Zofran Inj) (02/12/17 10:15) Hydromorphone Pf Inj (Dilaudid Pf Inj) (02/12/17 10:15) Mri L Spine W&W/O Contrast (02/12/17 ) Gadodiamide Pf Inj (Omniscan Pf Inj) (02/12/17 12:50) Labs Laboratory Tests Test 02/12/17 10:32 White Blood Count 4.3 TH/MM3 Red Blood Count 4.37 MIL/MM3 Hemoglobin 12.2 GM/DL Hematocrit 36.5 % Mean Corpuscular Volume 83.6 FL Mean Corpuscular Hemoglobin 27.8 PG Mean Corpuscular Hemoglobin Concent 33.3 % Red Cell Distribution Width 13.8 % Platelet Count 147 TH/MM3 Mean Platelet Volume 7.5 FL Neutrophils (%) (Auto) 60.8 % Lymphocytes (%) (Auto) 21.8 % Monocytes (%) (Auto) 8.9 % Eosinophils (%) (Auto) 4.2 % Basophils (%) (Auto) 4.3 % Neutrophils # (Auto) 2.6 TH/MM3 Lymphocytes # (Auto) 0.9 TH/MM3 Monocytes # (Auto) 0.4 TH/MM3 Eosinophils # (Auto) 0.2 TH/MM3 Basophils # (Auto) 0.2 TH/MM3 CBC Comment DIFF FINAL Differential Comment Blood Urea Nitrogen 16 MG/DL Creatinine 1.10 MG/DL Random Glucose 100 MG/DL Total Protein 7.6 GM/DL Albumin 3.3 GM/DL Calcium Level 9.0 MG/DL Alkaline Phosphatase 114 U/L Aspartate Amino Transf (AST/SGOT) 51 U/L Alanine Aminotransferase (ALT/SGPT) 52 U/L Total Bilirubin 0.7 MG/DL Sodium Level 137 MEQ/L Potassium Level 3.7 MEQ/L Chloride Level 102 MEQ/L Carbon Dioxide Level 29.0 MEQ/L Anion Gap 6 MEQ/L Estimat Glomerular Filtration Rate 65 ML/MIN MDM Medical Decision Making Medical Screen Exam Complete: Yes Emergency Medical Condition: Yes Medical Record Reviewed: Yes Differential Diagnosis Differential includes metastatic renal cancer, pathologic fracture, cord compression Narrative Course An MRI was ordered. It has been read as showing progression of metastatic disease in the bony spine. There is no evidence of cord compression. Patient was given Dilaudid with good relief of pain. We will fax the report to his oncologist in [place]. He'll be released with prescription for Percocet Diagnosis Primary Impression: Back pain Qualified Codes: M54.5 - Low back pain Additional Impression: Metastatic renal cell carcinoma to bone Scripts Oxycodone-Acetaminophen (Percocet) 10-325 mg Tab 1 TAB PO Q4H Y for PAIN, #30 TAB 0 Refills Prov: Stanton Koehler MD 02/12/17 Disposition: 01 DISCHARGE HOME Condition: Stable Stanton Koehler MD Feb 12, 2017 10:23
[2017-02-12 10:39] LABS: AUTOMATED NEUTROPHIL # 2.6 TH/MM3 (1.8-7.7); BASOPHIL # 0.2 TH/MM3 (0-0.2); BASOPHIL % 4.3 % (0.0-2.0); EOSINOPHIL # 0.2 TH/MM3 (0-0.4); EOSINOPHIL % 4.2 % (0.0-4.0); HEMATOCRIT 36.5 % (39.0-51.0); HEMOGLOBIN 12.2 GM/DL (13.0-17.0); LYMPH % 21.8 % (9.0-44.0); LYMPHOCYTE # 0.9 TH/MM3 (1.0-4.8); MEAN CELL VOLUME 83.6 FL (80.0-100.0); MEAN CORPUSCULAR HEMOGLOBIN 27.8 PG (27.0-34.0); MEAN CORPUSCULAR HGB CONC 33.3 % (32.0-36.0); MEAN PLATELET VOLUME 7.5 FL (7.0-11.0); MONO % 8.9 % (0.0-8.0); MONOCYTE # 0.4 TH/MM3 (0-0.9); NEUT % 60.8 % (16.0-70.0); PLATELET COUNT 147 TH/MM3 (150-450); RED BLOOD COUNT 4.37 MIL/MM3 (4.50-5.90); RED CELL DISTRIBUTION WIDTH 13.8 % (11.6-17.2); WHITE BLOOD COUNT 4.3 TH/MM3 (4.0-11.0)
[2017-02-12 10:45] LABS: CHLORIDE 102 MEQ/L (98-107); SODIUM (NA) 137 MEQ/L (136-145)
[2017-02-12 10:49] LABS: ALBUMIN 3.3 GM/DL (3.4-5.0); BLOOD UREA NITROGEN 16 MG/DL (7-18); GLUCOSE,RANDOM 100 MG/DL (74-106)
[2017-02-12 10:52] LABS: ALT (GPT) 52 U/L (12-78); AST (GOT) 51 U/L (15-37); GLOMERULAR FILTRATION RATE 65 ML/MIN (>89)
[2017-02-12 10:54] LABS: TOTAL BILIRUBIN ADULT 0.7 MG/DL (0.2-1.0); TOTAL PROTEIN 7.6 GM/DL (6.4-8.2)
[2017-02-12 10:55] LABS: ALKALINE PHOSPHATASE 114 U/L (45-117)
[2017-02-12] MEDS ORDERED: ZETI10TA5 PO (11:09)
[2017-02-12] MEDS ORDERED: GADODIAMIDE PF 287 MG/ML 20 ML VIAL (for RAD MRI) IV PUSH ONE (12:50)
--- NOTE | 2017-02-12 14:28 | RADRPT ---
EXAM DATE/TIME: 02/12/2017 12:35 [facility] COMPARISON: CT ABDOMEN & PELVIS W CONTRAST, October 06, 2016, 10:53. INDICATIONS : Pain. Hx of renal ca with mets. CONTRAST: 16 cc Omniscan (gadodiamide) IV MEDICAL HISTORY : Metastatic, bone. Renal ca. SURGICAL HISTORY : Nephrectomy, left. Ligation of IVC. ENCOUNTER: Initial ACUITY: 2 day PAIN SCORE: 4/10 LOCATION: back TECHNIQUE: Multiplanar multisequence MRI of the lumbar spine was performed with and without contrast. FINDINGS: Prior CT scan in September 2006 demonstrated a solitary lytic lesion in the right L2 vertebral body measur ing 2.0 cm, characteristic of an osteolytic metastasis. On today's MRI scan there are multiple signal abnormalities involving T12-L4 vertebral bodies suspici ous for multifocal metastatic disease. There is a heterogeneous mild pattern of enhancement in these vertebral bodies on postcontrast study and areas of T2 prolongation. Areas of involvement include: T12 posterior central L1 right body and pedicle L2 right body with expansion of the lateral cortex; axial dimension 2.7 x 2.5 cm. There is also a le ekaterina in the left vertebral body measuring 1.9 cm. L3 right half of the vertebral body extending toward but not into the pedicle. L4 posterior central with some mild expansion of the posterior cortex which is contained within the e pidural fat. Posterior vertebral epidural fat, diffuse enhancement from the L3 through the S2 level without focal masslike enlargement. The conus is at the level of L1. No abnormal enhancement within the thecal sac. CONCLUSION: Multifocal metastatic disease involving T12-L4 with significant progression when compared to prior CT in September 2016. No evidence of cord compression and no significant bony spinal canal stenosis. Toni Lovell MD on February 12, 2017 at 14:16 Board Certified Radiologist. This report was verified electronically.
[2017-02-12] MEDS ORDERED: PERC10TA27 PO (14:47)
[2017-02-12 15:19] VITALS: BP 139/71
== END 2017-02-12 15:21 | disposition home or self-care (01) ==
LOC: PHED 09:14
DX: M54.5 Low back pain (principal); C64.9 Malignant neoplasm of unspecified kidney, except renal pelvis; C79.51 Secondary malignant neoplasm of bone; I10 Essential (primary) hypertension
CPT/HCPCS: 72158; 80053; 85025; 96374; 96375; 99285; A9579; J1170; J2405; J7030

== ENCOUNTER 2017-02-28 14:19 | Observation (INO) | payer MEDICARE ==
[~2017-02-28] VITALS: Ht 170.2 cm; Wt 91.2 kg
[~2017-02-28 14:19] MED LIST changes: +EZET10 PO; -OMEP20TA PO; +OMEP20TA93 PO; +PERC10TA27 PO; -ZETI10TA5 PO; -ZOFR4TAB3 SL
[2017-02-28 14:29] VITALS: BP 131/64; PULSE 90; RESP 16; TEMP 97.4; O2SAT 98
[2017-02-28] MEDS ORDERED: SODIUM CHLOR 0.9% 1000 ML INJ 1,000 ML IV ONE (14:46)
[2017-02-28 14:55] VITALS: O2SAT 97
[2017-02-28] MEDS ORDERED: PROCHLORPERAZINE INJ 10 MG/2 ML VIAL IV PUSH ONE (15:00)
[2017-02-28] MEDS ORDERED: SODIUM CHLORIDE 0.9% FLUSH 10 ML FLUSH IVF PRN (15:00)
[2017-02-28] MEDS ORDERED: diphenhydrAMINE HCL 50 MG/ML VIAL IV PUSH ONE (15:00)
[2017-02-28] MEDS ORDERED: ONDANSETRON HCL 4 MG/2 ML VIAL IV PUSH ONE (15:00)
[2017-02-28 15:15] LABS: AUTOMATED NEUTROPHIL # 4.1 TH/MM3 (1.8-7.7); BASOPHIL % 0.2 % (0.0-2.0); EOSINOPHIL % 0.3 % (0.0-4.0); HEMATOCRIT 33.8 % (39.0-51.0); LYMPH % 9.2 % (9.0-44.0); LYMPHOCYTE # 0.4 TH/MM3 (1.0-4.8); MEAN CELL VOLUME 83.4 FL (80.0-100.0); MEAN CORPUSCULAR HEMOGLOBIN 27.2 PG (27.0-34.0); MEAN CORPUSCULAR HGB CONC 32.6 % (32.0-36.0); MEAN PLATELET VOLUME 7.5 FL (7.0-11.0); MONO % 0.6 % (0.0-8.0); NEUT % 89.7 % (16.0-70.0); PLATELET COUNT 195 TH/MM3 (150-450); RED BLOOD COUNT 4.06 MIL/MM3 (4.50-5.90); RED CELL DISTRIBUTION WIDTH 14.3 % (11.6-17.2); WHITE BLOOD COUNT 4.5 TH/MM3 (4.0-11.0)
[2017-02-28 15:27] LABS: CALCIUM 9.2 MG/DL (8.5-10.1)
[2017-02-28 15:28] LABS: BICARBONATE 25.4 MEQ/L (21.0-32.0)
[2017-02-28 15:31] LABS: CREATININE 0.97 MG/DL (0.60-1.30)
[2017-02-28 15:36] LABS: BILIRUBIN, URINE NEG (NEG); BLOOD, URINE NEG (NEG); GLUCOSE,URINE NEG (NEG); KETONE, URINE 40 mg/dL (NEG); NITRITE,URINE NEG (NEG); URINE LEUKOCYTE ESTERASE NEG (NEG)
[2017-02-28 15:43] LABS: RBC, URINE 0-3 /hpf (0-3); SQUAMOUS EPITHELIAL CELL URINE 0-5 /hpf (0-5); URINE COLOR YELLOW (YELLW/STRAW)
--- NOTE | 2017-02-28 15:45 | PD ---
HPI . Nausea and vomiting Chief Complaint: GI Complaint Time Seen by Provider: 14:45 Travel History International Travel<30 days: No Contact w/Intl Traveler<30days: No Traveled to known affect area: No History of Present Illness HPI This is a patient with history of renal cell carcinoma with metastases to the bone who presents the acute onset of nausea and vomiting. This started at 8: 00. His symptoms have waxed and waned. He was seen by his oncologist this morning for a routine follow-up visit. He was treated in the office with IV fluids and probably IV Zofran (unknown IV antiemetic). He seemed to be better and his was taking him home. He started vomiting again on the way home. He was subsequently brought to us for further evaluation and treatment. He has not noted any cause for the vomiting. No exacerbating factors. No associated diarrhea, fever or urinary tract symptoms. No cough or shortness of breath. He has recently been on a clinical trial of chemotherapy at [facility]. His reports that the clinical trial was discontinued after 2-1/2 months because of new bony metastases. 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 radiation to left hip-pain prior ) Neurologic: Yes ( states no neuro issues, did have kyphoplasty T7) Psychiatric: No Reproductive: No Respiratory: Yes Immunizations Current: Yes Migraines: No Radiation Therapy: Yes (5 LEFT HIP) Renal Failure: No Seizures: No Sickle Cell Disease: No Sleep Apnea: No Thyroid Disease: No Ulcer: No Tetanus Vaccination: < 5 Years Influenza Vaccination: No Past Surgical History Abdominal Surgery: Yes (LEFT NEPHRECTOMY AND LEFT RENAL VEIN REMOVAL ) AICD: No Arteriovenous Shunt: No Cardiac Surgery: Yes (LIGATION OF THE INFERIOR VENA CAVA ) Ear Surgery: No Endocrine Surgery: No Eye Surgery: No Genitourinary Surgery: No Gynecologic Surgery: No Insulin Pump: No Joint Replacement: No Neurologic Surgery: Yes (kyphoplasty) Oral Surgery: Yes (TONSILECTOMY ) Pacemaker: No Thoracic Surgery: Yes (VENA CAVA THROMBUS REMOVAL ) Tonsillectomy: Yes Other Surgery: Yes (LEFT NEPHRECTOMY, RENAL VEIN REMOVAL) Social History Alcohol Use: Yes (ONE DRINK DAILY) Tobacco Use: No (quit 4 years ago ) Substance Use: No Allergies-Medications (Allergen,Severity, Reaction): Coded Allergies: No Known Allergies (Unverified Adverse Reaction, Unknown, 02/28/17) Reported Meds & Prescriptions Reported Meds & Active Scripts Active Percocet (Oxycodone-Acetaminophen) 10-325 mg Tab 1 Tab PO Q4H PRN Reported Zetia (Ezetimibe) 10 Mg Tab 10 Mg PO DAILY Tramadol (Tramadol HCl) 50 Mg Tab 50 Mg PO Q4H PRN Amlodipine (Amlodipine Besylate) 5 Mg Tab 5 Mg PO DAILY Atorvastatin (Atorvastatin Calcium) 10 Mg Tab 10 Mg PO HS Omeprazole 20 Mg Tab 20 Mg PO DAILY Review of Systems Except as stated in HPI: all other systems reviewed are Neg General / Constitutional: No: Fever, Chills Cardiovascular: No: Chest Pain or Discomfort Respiratory: No: Cough, Shortness of Breath Gastrointestinal: Positive: Nausea, Vomiting, No: Diarrhea, Abdominal Pain Genitourinary: No: Urgency, Frequency, Dysuria Skin: Positive Change in Pigmentation (very pale) Neurologic: Positive: Weakness Physical Exam Narrative GENERAL: Lying on the stretcher with his eyes closed. He does not act like he feels very well. SKIN: warm/dry. Pale. HEAD: Normocephalic. Atraumatic. EYES: Pupils equal and round. No scleral icterus. No injection or drainage. ENT: No nasal bleeding or discharge. Mucous membranes pink and moist. NECK: Trachea midline. Full range of motion without pain.. CARDIOVASCULAR: Regular rate and rhythm. RESPIRATORY: No accessory muscle use. Clear to auscultation. Breath sounds equal bilaterally. GASTROINTESTINAL: Abdomen soft. Nontender. Bowel sounds present. Nondistended. MUSCULOSKELETAL: No obvious deformities. NEUROLOGICAL: Awake and alert. No obvious cranial nerve deficits. Motor grossly within normal limits. Normal speech. PSYCHIATRIC: Appropriate mood and affect; insight and judgment normal. Data Data Last Documented VS Vital Signs Date Time Temp Pulse Resp B/P (MAP) Pulse Ox O2 Delivery O2 Flow Rate FiO2 02/28/17 16:01 89 16 146/67 (93) 99 Nasal Cannula 2.00 02/28/17 14:29 97.4 Orders Orders Iv Access Insert/Monitor (02/28/17 14:46) Ecg Monitoring (02/28/17 14:46) Oximetry (02/28/17 14:46) Ondansetron Inj (Zofran Inj) (02/28/17 15:00) Sodium Chlor 0.9% 1000 Ml Inj (Ns 1000 M (02/28/17 14:46) Sodium Chloride 0.9% Flush (Ns Flush) (02/28/17 15:00) Complete Blood Count With Diff (02/28/17 14:47) Urinalysis - C+S If Indicated (02/28/17 14:47) Basic Metabolic Panel (Bmp) (02/28/17 14:48) Prochlorperazine Inj (Compazine Inj) (02/28/17 15:00) Diphenhydramine Inj (Benadryl Inj) (02/28/17 15:00) Sodium Chlor 0.9% 1000 Ml Inj (Ns 1000 M (02/28/17 16:30) Admit Order (Ed Use Only) (02/28/17 ) Vital Signs (Adult) Q4H (02/28/17 17:23) Diet Npo (02/28/17 Dinner) Activity Oob With Assistance (02/28/17 17:23) Notify Dr: Other (02/28/17 17:23) Labs Laboratory Tests Test 02/28/17 15:09 02/28/17 15:30 White Blood Count 4.5 TH/MM3 Red Blood Count 4.06 MIL/MM3 Hemoglobin 11.0 GM/DL Hematocrit 33.8 % Mean Corpuscular Volume 83.4 FL Mean Corpuscular Hemoglobin 27.2 PG Mean Corpuscular Hemoglobin Concent 32.6 % Red Cell Distribution Width 14.3 % Platelet Count 195 TH/MM3 Mean Platelet Volume 7.5 FL Neutrophils (%) (Auto) 89.7 % Lymphocytes (%) (Auto) 9.2 % Monocytes (%) (Auto) 0.6 % Eosinophils (%) (Auto) 0.3 % Basophils (%) (Auto) 0.2 % Neutrophils # (Auto) 4.1 TH/MM3 Lymphocytes # (Auto) 0.4 TH/MM3 Monocytes # (Auto) 0.0 TH/MM3 Eosinophils # (Auto) 0.0 TH/MM3 Basophils # (Auto) 0.0 TH/MM3 CBC Comment DIFF FINAL Differential Comment Blood Urea Nitrogen 12 MG/DL Creatinine 0.97 MG/DL Random Glucose 166 MG/DL Calcium Level 9.2 MG/DL Sodium Level 135 MEQ/L Potassium Level 3.8 MEQ/L Chloride Level 100 MEQ/L Carbon Dioxide Level 25.4 MEQ/L Anion Gap 10 MEQ/L Estimat Glomerular Filtration Rate 75 ML/MIN Urine Color YELLOW Urine Turbidity CLEAR Urine pH 8.0 Urine Specific [place] 1.020 Urine Protein NEG mg/dL Urine Glucose (UA) NEG mg/dL Urine Ketones 40 mg/dL Urine Occult Blood NEG Urine Nitrite NEG Urine Bilirubin NEG Urine Leukocyte Esterase NEG Urine RBC 0-3 /hpf Urine Squamous Epithelial Cells 0-5 /hpf Microscopic Urinalysis Comment CULT NOT INDICATED MDM Medical Decision Making Medical Screen Exam Complete: Yes Emergency Medical Condition: Yes Medical Record Reviewed: Yes (renal cell carcinoma with bone metastases. He was on a clinical trial at [facility] until 02/18.) Differential Diagnosis Differential diagnosis includes but is not limited to viral gastritis, food poisoning, pancreatitis, pneumonia, hepatitis, acute coronary syndrome, Narrative Course This patient presents for nausea and vomiting. He reports associated weakness. He is very pale. He is being treated with IV fluids and IV Compazine and Benadryl. Basic labs have been ordered. CBC & BMP Diagram 02/28/17 15:09 Calcium Level 9.2 UA neg This patient reports that he is no better. He was treated with IV fluids and IV Zofran per his oncologist. He has been treated here with another liter of IV fluids and IV Compazine and Benadryl. We will ask for admission to observation. Physician Communication Physician Communication Dr. Escobedo Diagnosis Primary Impression: Nausea & vomiting Qualified Codes: R11.2 - Nausea with vomiting, unspecified Admitting Information Admitting Physician Requests: Observation Condition: Stable Grace Kendrick MD Feb 28, 2017 15:45
[2017-02-28 16:01] VITALS: BP 146/67; PULSE 89; RESP 16; O2SAT 99
[2017-02-28] MEDS ORDERED: SODIUM CHLOR 0.9% 1000 ML INJ 1,000 ML IV SCH ×2 (16:30→18:00)
[2017-02-28] MEDS ORDERED: BISACODYL 10 MG SUPP RECTAL PRN (17:30)
[2017-02-28] MEDS ORDERED: SODIUM CHLORIDE 0.9% FLUSH 10 ML FLUSH IV FLUSH PRN (17:30)
[2017-02-28] MEDS ORDERED: LACTULOSE SYRUP 20 GM/30 ML CUP PO PRN (17:30)
[2017-02-28] MEDS ORDERED: MAGNESIUM HYDROXIDE SUSP 30 ML CUP PO PRN (17:30)
[2017-02-28] MEDS ORDERED: SENNOSIDES 8.6 MG TAB PO PRN (17:30)
[2017-02-28] MEDS ORDERED: NALOXONE HCL 0.4 MG/ML AMP IV PUSH PRN (17:30)
[2017-02-28] MEDS: DEXT 5%-NACL 0.45% 1000 ML INJ 1,000 ML IV SCH (17:46)
[2017-02-28] MEDS ORDERED: PROMETHAZINE HCL 25 MG SUPP RECTAL ONE (18:00)
[2017-02-28] MEDS ORDERED: SODIUM CHLORID 0.9% 500 ML INJ 500 ML IV ONE (18:00)
[2017-02-28] MEDS ORDERED: DRON2.5 PO (18:08)
[2017-02-28] MEDS ORDERED: PROM1SUP7 RECTAL (18:08)
[2017-02-28] MEDS ORDERED: ZOFR4TAB3 SL (18:08)
--- NOTE | 2017-02-28 18:08 | HHI.HP ---
[facility] Primary Care Physician Lawrence Mata MD Admission Diagnosis persistent N/V Diagnoses: (1) Nausea & vomiting Diagnosis: Principal Chief Complaint: nausea and vomiting Travel History International Travel<30 Days: No Contact w/Intl Traveler <30 Da: No Traveled to Known Affected Are: No History of Present Illness Written by Huy Ortiz, acting as scribe for Dr. Escobedo on 02/28/17 at 17 :59. This is a 81 year-old male with known history of metastatic renal cell carcinoma, hyperlipidemia, hypertension, episodic nausea vomiting, gastroesophageal reflux who presented to hospital because of recurrent nausea and vomiting. Patient states that he was in his normal state of health when he woke up at 7:00 this morning. He had A coffee and a postdate for breakfast. He started have some nausea before his oncology appointment and he was given sublingual Zofran with good result. He did go to his result at 9:30 this morning and he started developing nausea and subsequent he vomited in the doctor 's office. Patient was given another antiemetic and 2 L of IV fluids at the oncologist office. Patient was feeling better and his was driving him home and he developed another episode of nausea so they came to the ER for evaluation. The patient was seen in the emergency department and he has not had any vomiting since being in the emergency department. He has been given Zofran with good results. The patient would prefer not to be admitted the hospital and would like to go home. We discussed with the patient extensively about his nausea, vomiting. Discussed multiple medications that could help with him with his recurrent nausea vomiting. Both him and his are eager to try other medications as well as go home. They're notified if his symptoms return and come back to the hospital for reevaluation. Review of Systems Cardiovascular: COMPLAINS OF: Lower Extremity Edema Gastrointestinal: COMPLAINS OF: Nausea, Vomiting Except as stated in HPI: all other systems reviewed are Neg Past Family Social History Past Medical History Hypertension Hyperlipidemia Renal adenocarcinoma Gastroesophageal reflux History of DVT and PE Past Surgical History Tonsillectomy Left nephrectomy Ligation of the inferior vena cava secondary to DVT/PE Kyphoplasty Reported Medications Reported Meds & Active Scripts Active Percocet (Oxycodone-Acetaminophen) 10-325 mg Tab 1 Tab PO Q4H PRN Reported Zetia (Ezetimibe) 10 Mg Tab 10 Mg PO DAILY Tramadol (Tramadol HCl) 50 Mg Tab 50 Mg PO Q4H PRN Amlodipine (Amlodipine Besylate) 5 Mg Tab 5 Mg PO DAILY Atorvastatin (Atorvastatin Calcium) 10 Mg Tab 10 Mg PO HS Omeprazole 20 Mg Tab 20 Mg PO DAILY Allergies: Coded Allergies: No Known Allergies (Unverified Allergy, Unknown, 02/28/17) Family History Reviewed is significant for his father with tobacco use, alcohol use. Unknown cause of Social History Patient quit smoking a pipe 5 years ago, quit smoking cigarettes 40 years ago. Does drink 1 alcoholic beverage daily. Denies any illicit drugs Physical Exam Vital Signs Vital Signs Date Time Temp Pulse Resp B/P (MAP) Pulse Ox O2 Delivery O2 Flow Rate FiO2 02/28/17 16:01 89 16 146/67 (93) 99 Nasal Cannula 2.00 02/28/17 14:55 97 Room Air 02/28/17 14:29 97.4 90 16 131/64 (86) 98 Physical Exam GENERAL: Well-developed, well-nourished, in no acute distress. alert and orientated HEENT: Head is normocephalic without any lesions or masses noted. Facial features are symmetric. Eyes: Pupils equal round reactive to light. Extraocular muscles are intact. Conjunctivae were clear. Oropharyngeal: Pharynx without any erythema edema. Tongue is midline without deviation. Buccal mucosa is moist without any masses or lesions NECK: Supple without any masses. Trachea midline no deviation. No JVD, no bruits are appreciated CARDIAC: Regular rhythm, regular rate. S1/S2 are heard. No murmurs gallops or rubs. LUNGS: Clear to auscultation bilaterally. No wheeze, rhonchi or rales. No use of accessory muscles on inspiration or expiration. ABDOMEN: Soft, nontender. Nondistended. Bowel sounds heard in all 4 quadrants. No organomegaly or masses. Negative rebound, negative guarding EXTREMITIES: 3+ pitting edema noted bilateral lower extremities, pulses are equal bilaterally. No cyanosis or clubbing. Left medial ankle has dried wound with mild erythema around the edges NEUROLOGY: Mood and affect appear appropriate. Cranial nerves II through XII grossly intact. Muscle strength 5/5 in upper and lower extremities bilaterally. Deep tendon reflexes are 2+ in upper and lower extremities bilaterally. Laboratory Laboratory Tests Test 02/28/17 15:09 02/28/17 15:30 White Blood Count 4.5 Red Blood Count 4.06 Hemoglobin 11.0 Hematocrit 33.8 Mean Corpuscular Volume 83.4 Mean Corpuscular Hemoglobin 27.2 Mean Corpuscular Hemoglobin Concent 32.6 Red Cell Distribution Width 14.3 Platelet Count 195 Mean Platelet Volume 7.5 Neutrophils (%) (Auto) 89.7 Lymphocytes (%) (Auto) 9.2 Monocytes (%) (Auto) 0.6 Eosinophils (%) (Auto) 0.3 Basophils (%) (Auto) 0.2 Neutrophils # (Auto) 4.1 Lymphocytes # (Auto) 0.4 Monocytes # (Auto) 0.0 Eosinophils # (Auto) 0.0 Basophils # (Auto) 0.0 CBC Comment DIFF FINAL Differential Comment Blood Urea Nitrogen 12 Creatinine 0.97 Random Glucose 166 Calcium Level 9.2 Sodium Level 135 Potassium Level 3.8 Chloride Level 100 Carbon Dioxide Level 25.4 Anion Gap 10 Estimat Glomerular Filtration Rate 75 Urine Color YELLOW Urine Turbidity CLEAR Urine pH 8.0 Urine Specific Darwin 1.020 Urine Protein NEG Urine Glucose (UA) NEG Urine Ketones 40 Urine Occult Blood NEG Urine Nitrite NEG Urine Bilirubin NEG Urine Leukocyte Esterase NEG Urine RBC 0-3 Urine Squamous Epithelial Cells 0-5 Microscopic Urinalysis Comment CULT NOT INDICATED Urine Opiates Screen NEG Urine Barbiturates Screen NEG Urine Amphetamines Screen NEG Urine Benzodiazepines Screen NEG Urine Cocaine Screen NEG Urine Cannabinoids Screen NEG Result Diagram: 02/28/17 1509 02/28/17 1509 Caprini VTE Risk Assessment Caprini VTE Risk Assessment: Mod/High Risk (score >= 2) Caprini Risk Assessment Model Point Value = 1 Point Value = 2 Point Value = 3 Point Value = 5 Age 41-60 Minor surgery BMI > 25 kg/m2 Swollen legs Varicose veins or History of unexplained or recurrent spontaneous Oral contraceptives or hormone replacement Sepsis (< 1 month) Serious lung disease, including pneumonia (< 1 month) Abnormal pulmonary function Acute myocardial infarction Congestive heart failure (< 1 month) History of inflammatory bowel disease Medical patient at bed rest Age 61-74 Arthroscopic surgery Major open surgery (> 45 min) Laparoscopic surgery (> 45 min) Malignancy Confined to bed (> 72 hours) Immobilizing plaster cast Central venous access Age >= 75 History of VTE Family history of VTE Factor V Leiden Prothrombin [id number] Lupus anticoagulant Anticardiolipin antibodies Elevated serum homocysteine Heparin-induced thrombocytopenia Other congenital or acquired thrombophilia Stroke (< 1 month) Elective arthroplasty Hip, pelvis, or leg fracture Acute spinal cord injury (< 1 month) Prophylaxis Regimen Total Risk Factor Score Risk Level Prophylaxis Regimen 0-1 Low Early ambulation 2 Moderate Order ONE of the following: *Sequential Compression Device (SCD) *Heparin 5000 units SQ BID 3-4 Higher Order ONE of the following medications: *Heparin 5000 units SQ TID *Enoxaparin/Lovenox 40 mg SQ daily (WT < 150 kg, CrCl > 30 mL/min) *Enoxaparin/Lovenox 30 mg SQ daily (WT < 150 kg, CrCl > 10-29 mL/min) *Enoxaparin/Lovenox 30 mg SQ BID (WT < 150 kg, CrCl > 30 mL/min) AND/OR *Sequential Compression Device (SCD) 5 or more Highest Order ONE of the following medications: *Heparin 5000 units SQ TID (Preferred with Epidurals) *Enoxaparin/Lovenox 40 mg SQ daily (WT < 150 kg, CrCl > 30 mL/min) *Enoxaparin/Lovenox 30 mg SQ daily (WT < 150 kg, CrCl > 10-29 mL/min) *Enoxaparin/Lovenox 30 mg SQ BID (WT < 150 kg, CrCl > 30 mL/min) AND *Sequential Compression Device (SCD) Assessment and Plan Assessment and Plan //Nausea and vomiting, recurrent and resolved //Metastatic renal cell carcinoma - Give Phenergan - We'll do by mouth challenge - If patient tolerates meal he can be discharged home -did not tolerate dinner, was kept for further monitoring. - Counseled patient on multiple medications that could help with his condition to include Zofran, Phenergan, Marinol - Patient continue follow-up with oncology //Hypertension - Resume home medications //DVT prevention - Sequential compression devices Discussed Condition With This note was transcribed by santos Ortiz. I, Dr. Warren Escobedo personally performed the history, physical exam, and medical decision making; and confirmed the accuracy of the information in the transcribed note. Authenticated by Dr. Warren Escobedo on 03/01/17 at 16:48. Problem Qualifiers (1) Nausea & vomiting: Qualified Codes: R11.2 - Nausea with vomiting, unspecified Huy Ortiz Feb 28, 2017 18:08 Warren Escobedo MD Mar 01, 2017 16:49
[2017-02-28 18:28] VITALS: BP 135/74; PULSE 100; RESP 16; O2SAT 96
[2017-02-28 20:00] VITALS: BP 136/72; PULSE 102; RESP 20; TEMP 98.5; O2SAT 94
[2017-02-28] MEDS: ONDANSETRON HCL 4 MG/2 ML VIAL IVP PRN (20:09)
[2017-02-28] MEDS: SODIUM CHLORIDE 0.9% FLUSH 10 ML FLUSH IV FLUSH SCH (20:09)
[2017-02-28] MEDS: DOCUSATE SODIUM 50 MG/SENNA 8.6 MG TAB PO SCH (20:15)
[2017-03-01] VITALS: BP 136/68; PULSE 98; RESP 20; TEMP 98.8; O2SAT 93
[2017-03-01] MEDS: ONDANSETRON HCL 4 MG/2 ML VIAL IVP PRN (01:55)
[2017-03-01] MEDS: DEXT 5%-NACL 0.45% 1000 ML INJ 1,000 ML IV SCH ×2 (02:47→12:17)
[2017-03-01 07:24] LABS: AUTOMATED NEUTROPHIL # 3.7 TH/MM3 (1.8-7.7); BASOPHIL % 0.6 % (0.0-2.0); EOSINOPHIL % 0.1 % (0.0-4.0); HEMATOCRIT 30.5 % (39.0-51.0); HEMOGLOBIN 9.9 GM/DL (13.0-17.0); LYMPH % 14.3 % (9.0-44.0); LYMPHOCYTE # 0.7 TH/MM3 (1.0-4.8); MEAN CELL VOLUME 84.4 FL (80.0-100.0); MEAN CORPUSCULAR HEMOGLOBIN 27.4 PG (27.0-34.0); MEAN CORPUSCULAR HGB CONC 32.5 % (32.0-36.0); MEAN PLATELET VOLUME 8.1 FL (7.0-11.0); MONO % 7.3 % (0.0-8.0); MONOCYTE # 0.3 TH/MM3 (0-0.9); NEUT % 77.7 % (16.0-70.0); PLATELET COUNT 206 TH/MM3 (150-450); RED BLOOD COUNT 3.61 MIL/MM3 (4.50-5.90); RED CELL DISTRIBUTION WIDTH 14.6 % (11.6-17.2); WHITE BLOOD COUNT 4.7 TH/MM3 (4.0-11.0)
[2017-03-01 07:40] LABS: CHLORIDE 99 MEQ/L (98-107); SODIUM (NA) 134 MEQ/L (136-145)
[2017-03-01 07:44] LABS: CALCIUM 8.5 MG/DL (8.5-10.1)
[2017-03-01 07:45] LABS: ALBUMIN 2.9 GM/DL (3.4-5.0); BICARBONATE 27.9 MEQ/L (21.0-32.0); BLOOD UREA NITROGEN 10 MG/DL (7-18); GLUCOSE,RANDOM 139 MG/DL (74-106)
[2017-03-01 07:48] LABS: ALT (GPT) 22 U/L (12-78); AST (GOT) 24 U/L (15-37); CREATININE 0.88 MG/DL (0.60-1.30); GLOMERULAR FILTRATION RATE 84 ML/MIN (>89)
[2017-03-01 07:49] LABS: TOTAL BILIRUBIN ADULT 0.5 MG/DL (0.2-1.0)
[2017-03-01 07:50] LABS: ALKALINE PHOSPHATASE 95 U/L (45-117); TOTAL PROTEIN 6.4 GM/DL (6.4-8.2)
[2017-03-01 08:00] VITALS: BP 143/62; PULSE 68; RESP 18; TEMP 98.3; O2SAT 94
--- NOTE | 2017-03-01 08:51 | HHI.PR ---
Subjective Remarks Patient seen and examined for follow-up on recurrent nausea and vomiting. Patient did have dinner last night, he states that he vomited 3 times since then. Patient was not discharged last night because of the recurrent vomiting. Will pursue further treatment to control patient's nausea vomiting. Objective Vitals Vital Signs Date Time Temp Pulse Resp B/P (MAP) Pulse Ox O2 Delivery O2 Flow Rate FiO2 03/01/17 08:00 98.3 68 18 143/62 (89) 94 03/01/17 00:00 98.8 98 20 136/68 (90) 93 02/28/17 20:00 98.5 102 20 136/72 (93) 94 02/28/17 18:28 02/28/17 18:28 100 16 135/74 (94) 96 Room Air 02/28/17 16:01 89 16 146/67 (93) 99 Nasal Cannula 2.00 02/28/17 14:55 97 Room Air 02/28/17 14:29 97.4 90 16 131/64 (86) 98 I/O 02/28/17 02/28/17 02/28/17 03/01/17 03/01/17 03/01/17 07:00 15:00 23:00 07:00 15:00 23:00 Intake Total 1720 ml 1340 ml Output Total 300 ml 2075 ml Balance 1420 ml -735 ml Intake Oral 0 ml IV Total 1720 ml 1340 ml Output Urine Total 300 ml 1275 ml Emesis 800 ml # Voids 1 Result Diagram: 03/01/17 0635 03/01/17 0635 Objective Remarks GENERAL: Well-developed, well-nourished, in no acute distress. alert and orientated HEENT: Head is normocephalic without any lesions or masses noted. Facial features are symmetric. Eyes: Extraocular muscles are intact. Conjunctivae were clear. NECK: Supple without any masses. Trachea midline no deviation. No JVD, CARDIAC: Regular rhythm, regular rate. S1/S2 are heard. No murmurs gallops or rubs. LUNGS: Clear to auscultation bilaterally. No wheeze, rhonchi or rales. No use of accessory muscles on inspiration or expiration. ABDOMEN: Soft, nontender. Nondistended. Bowel sounds heard in all 4 quadrants. No organomegaly or masses. Negative rebound, negative guarding EXTREMITIES: 3+ pitting edema noted bilateral lower extremities, pulses are equal bilaterally. No cyanosis or clubbing. Left medial ankle has dried wound with mild erythema around the edges NEUROLOGY: Mood and affect appear appropriate. Cranial nerves II through XII grossly intact. Moving all extremities, speech is clear Urinary Catheter: No Vascular Central Line Catheter: No A/P Assessment and Plan Nausea and vomiting, recurrent in a patient with known history of Metastatic renal cell carcinoma Start Marinol 2.5 mg twice daily Start Phenergan if Zofran doesn't work Start Reglan IV every 8 hours Continue diet Patient continue follow-up with oncology KUB flat and upright studies were unremarkable for any obstruction CT scan of the abdomen indicated worsening metastatic disease with more lytic lesions and possible pathological fracture of the ninth rib. Developing right lung airspace disease, possible aspiration from recent nausea vomiting This abnormality was found on the abdominal CT Patient is asymptomatic at this time with out any fever, leukocytosis, respiratory symptoms Continue monitor and start antibiotics accordingly Hypertension Resume home medications DVT prevention Sequential compression devices Discharge Planning Discharge planning 24-48 hours depending on patient's response to treatment Huy Ortiz Mar 01, 2017 08:51
[2017-03-01] MEDS ORDERED: PROMETHAZINE INJ 25 MG/ML VIAL IM PRN ×2 (09:00→11:25)
[2017-03-01] MEDS: SODIUM CHLORIDE 0.9% FLUSH 10 ML FLUSH IV FLUSH SCH ×2 (09:00→20:16)
[2017-03-01] MEDS ORDERED: DRONABINOL 2.5 MG CAP PO ONE (09:00)
[2017-03-01] MEDS: DOCUSATE SODIUM 50 MG/SENNA 8.6 MG TAB PO SCH ×2 (10:09→20:16)
[2017-03-01 12:00] VITALS: BP 133/62; PULSE 75; RESP 18; TEMP 98; O2SAT 92
[2017-03-01] MEDS ORDERED: DIATRIZOATE MEGLUM/DIATRIZOATE SOD 9 ML CUP PO ONE (13:45)
--- NOTE | 2017-03-01 15:50 | RADRPT ---
EXAM DATE/TIME: 03/01/2017 15:28 [facility] COMPARISON: ABDOMEN FLAT & UPRIGHT, November 28, 2016, 17:38. INDICATIONS : Intractable nausea and vomiting MEDICAL HISTORY : Cancer kidney SURGICAL HISTORY : Kidney removal left side ENCOUNTER: Subsequent ACUITY: 2 days PAIN SCORE: 0/10 LOCATION: Bilateral abdomen FINDINGS: Supine and upright views of the abdomen were performed. Surgical clips in the left side of the abdome n are characteristic of a reported history of nephrectomy. Surgical clips on the right may be related to prior cholecystectomy. Bowel gas pattern is nonobstructive. No pneumoperitoneum. Osseous structur es are intact. CONCLUSION: Previously benign abdomen without obstruction or pneumoperitoneum. Iggy Ho MD on March 01, 2017 at 15:48 Board Certified Radiologist. This report was verified electronically.
[2017-03-01 16:00] VITALS: BP 140/66; PULSE 77; RESP 18; TEMP 98.1; O2SAT 94
--- NOTE | 2017-03-01 16:32 | RADRPT ---
EXAM DATE/TIME: 03/01/2017 16:00 [facility] COMPARISON: CT ABDOMEN & PELVIS W CONTRAST, October 06, 2016, 10:53. INDICATIONS : Nausea and vomiting. ORAL CONTRAST: Partial prescribed oral contrast ingested. RADIATION DOSE: 21.10 CTDIvol (mGy) MEDICAL HISTORY : Cardiovascular disease. Ca kidney , rectus hematoma SURGICAL HISTORY : Left nephrectomy and renal vein. Radiation Tx, Kyphoplasty. ENCOUNTER: Initial ACUITY: 2 days PAIN SCALE: 4/10 LOCATION: abdominal TECHNIQUE: Volumetric scanning of the abdomen and pelvis was performed. Using automated exposure control and ad justment of the mA and/or kV according to patient size, radiation dose was kept as low as reasonably achievable to obtain optimal diagnostic quality images. DICOM format image data is available electro nically for review and comparison. FINDINGS: LOWER LUNGS: Patchy airspace disease in the right base may represent a developing pneumonic infiltrate. LIVER: Stable low density a 1.6 cm lesion in the hepatic dome is characteristic of a benign cyst. Gallbladde r is decompressed without stones. SPLEEN: Normal size without lesion. PANCREAS: Within normal limits. KIDNEYS: Left nephrectomy with stable soft tissue density in the left renal bed. Stable cortical scarring the remaining right kidney with a small hypodensity in the midpole cortex anteriorly characteristic of a cyst. ADRENAL GLANDS: Within normal limits. VASCULAR: There is no aortic aneurysm. Extensive varicosities are seen in the right posterolateral aspect of th e peritoneal cavity with additional varicosities in the left abdominal wall and trunk. 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 This was present prev iously and is unchanged. BOWEL/MESENTERY: Small 1 cm lipoma the junction of the second and third portions of the duodenum. No bowel obstruction . ABDOMINAL WALL: Within normal limits. RETROPERITONEUM: There is no lymphadenopathy. BLADDER: No wall thickening or mass. REPRODUCTIVE: Within normal limits. INGUINAL: There is no lymphadenopathy or hernia. MUSCULOSKELETAL: Extensive lytic lesions have increased in both size and number. There is a 2.8 x 1.9 cm soft tissue m ass associated with a probable pathologic fracture in the posterior aspect of rib #9 on the right. Mu ltiple lytic lesions in both the thoracic and lumbar vertebral bodies again, have increased in size a nd number. Enlarging lytic lesion in the anterior aspect of the left ilium measuring 2.2 cm in diamet er. CONCLUSION: 1. Findings of worsening metastatic disease with multiple bony lytic lesions increasing in both size and number as detailed above. There appears to be a pathologic fracture of the posterior aspect of th e right ninth rib with an associated 2.8 cm soft tissue mass. 2. Extensive varicosities predominantly in the right posterolateral aspect of the peritoneal cavity. 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 3. Left nephrectomy with stable soft tissue in the surgical bed. Stable cortical scarring and parench ymal cyst on the remaining right kidney. 4. Patchy air space disease posteriorly in the right lung base may represent early pneumonic infiltra te. Iggy Ho MD on March 01, 2017 at 16:18 Board Certified Radiologist. This report was verified electronically.
[2017-03-01] MEDS: METOCLOPRAMIDE HCL 10 MG/2 ML VIAL IV PUSH SCH ×2 (16:59→22:28)
[2017-03-01 20:00] VITALS: BP 167/68; PULSE 69; RESP 18; TEMP 96.7; O2SAT 93
[2017-03-01] MEDS: DRONABINOL 2.5 MG CAP PO SCH (20:16)
[2017-03-02] VITALS: BP 169/73; PULSE 81; RESP 18; TEMP 97.2; O2SAT 94
[2017-03-02] MEDS: DEXT 5%-NACL 0.45% 1000 ML INJ 1,000 ML IV SCH ×3 (01:21→20:31)
[2017-03-02 04:00] VITALS: BP 180/81; PULSE 73; RESP 18; TEMP 97.3; O2SAT 93
[2017-03-02] MEDS: METOCLOPRAMIDE HCL 10 MG/2 ML VIAL IV PUSH SCH ×2 (06:01→14:00)
[2017-03-02 07:17] LABS: AUTOMATED NEUTROPHIL # 7.5 TH/MM3 (1.8-7.7); BASOPHIL # 0.3 TH/MM3 (0-0.2); BASOPHIL % 2.7 % (0.0-2.0); EOSINOPHIL % 0.1 % (0.0-4.0); HEMATOCRIT 36.6 % (39.0-51.0); HEMOGLOBIN 12.4 GM/DL (13.0-17.0); LYMPH % 12.7 % (9.0-44.0); LYMPHOCYTE # 1.2 TH/MM3 (1.0-4.8); MEAN CELL VOLUME 84.2 FL (80.0-100.0); MEAN CORPUSCULAR HEMOGLOBIN 28.5 PG (27.0-34.0); MEAN CORPUSCULAR HGB CONC 33.8 % (32.0-36.0); MEAN PLATELET VOLUME 8.3 FL (7.0-11.0); MONO % 8.2 % (0.0-8.0); MONOCYTE # 0.8 TH/MM3 (0-0.9); NEUT % 76.3 % (16.0-70.0); PLATELET COUNT 220 TH/MM3 (150-450); RED BLOOD COUNT 4.35 MIL/MM3 (4.50-5.90); RED CELL DISTRIBUTION WIDTH 14.9 % (11.6-17.2); WHITE BLOOD COUNT 9.8 TH/MM3 (4.0-11.0)
[2017-03-02 07:22] LABS: CALCIUM 9.2 MG/DL (8.5-10.1)
[2017-03-02 07:23] LABS: BICARBONATE 28.8 MEQ/L (21.0-32.0); MAGNESIUM 1.8 MG/DL (1.5-2.5)
[2017-03-02 07:26] LABS: CREATININE 0.94 MG/DL (0.60-1.30)
[2017-03-02 08:00] VITALS: BP 178/84; PULSE 76; RESP 18; TEMP 96.9; O2SAT 95
[2017-03-02] MEDS: DRONABINOL 2.5 MG CAP PO SCH (09:00)
[2017-03-02] MEDS: DOCUSATE SODIUM 50 MG/SENNA 8.6 MG TAB PO SCH ×2 (09:54→20:31)
[2017-03-02] MEDS: SODIUM CHLORIDE 0.9% FLUSH 10 ML FLUSH IV FLUSH SCH ×2 (09:54→20:32)
[2017-03-02 16:00] VITALS: BP 174/69; PULSE 77; RESP 20; TEMP 97; O2SAT 94
--- NOTE | 2017-03-02 17:30 | RADRPT ---
EXAM DATE/TIME: 03/02/2017 17:19 [facility] COMPARISON: CT BRAIN W/O CONTRAST, April 07, 2016, 10:34. INDICATIONS : Altered mental status. Episodes of confusion. RADIATION DOSE: 58.14 CTDIvol (mGy) MEDICAL HISTORY : Hypertension. Gastroesophageal reflux disease. Renal cancer. SURGICAL HISTORY : Tonsillectomy. Nephrectomy, left.Kyphoplasty. Ligation of IVC. ENCOUNTER: Initial ACUITY: 1 day PAIN SCALE: 0/10 LOCATION: cranial TECHNIQUE: Multiple contiguous axial images were obtained of the head. Using automated exposure control and adj ustment of the mA and/or kV according to patient size, radiation dose was kept as low as reasonably a chievable to obtain optimal diagnostic quality images. DICOM format image data is available electro nically for review and comparison. FINDINGS: CEREBRUM: The ventricles are normal for age. No evidence of midline shift, mass lesion, hemorrhage or acute in farction. No extra-axial fluid collections are seen. POSTERIOR FOSSA: The cerebellum and brainstem are intact. The 4th ventricle is midline. The cerebellopontine angle i s unremarkable. EXTRACRANIAL: The visualized portion of the orbits is intact. Stable mucoperiosteal thickening in the right sphenoi d. SKULL: The calvaria is intact. No evidence of skull fracture. CONCLUSION: 1. Stable, mild chronic sinusitis in the right sphenoid. 2. Otherwise negative. Iggy oH MD on March 02, 2017 at 17:27 Board Certified Radiologist. This report was verified electronically.
--- NOTE | 2017-03-02 18:01 | HHI.DCPOC ---
Discharge Care Plan Diagnosis: (1) Intractable nausea and vomiting Goals to Promote Your Health * To prevent worsening of your condition and complications * To maintain your health at the optimal level Directions to Meet Your Goals Take your medications as prescribed Follow your dietary instruction Follow activity as directed Keep your appointments as scheduled Take your immunizations and boosters as scheduled If your symptoms worsen call your PCP, if no PCP go to Urgent Care Center or Emergency Room Smoking is Dangerous to Your Health. Avoid second hand smoke Call the 24-hour hour crisis hotline for domestic abuse at Huy Ortiz Mar 02, 2017 18:01
--- NOTE | 2017-03-02 18:04 | HHI.DS ---
Discharge Summary Admission Date Feb 28, 2017 at 17:24 Discharge Date: Mar 02, 2017 Admitting Diagnosis persistent N/V (1) Nausea & vomiting ICD Code: R11.2 - Nausea and vomiting Diagnosis: Principal Status: Acute Procedures None Brief History - From Admission Written by Huy Ortiz, acting as scribe for Dr. Escobedo on 02/28/17 at 17 :59. This is a 81 year-old male with known history of metastatic renal cell carcinoma, hyperlipidemia, hypertension, episodic nausea vomiting, gastroesophageal reflux who presented to hospital because of recurrent nausea and vomiting. Patient states that he was in his normal state of health when he woke up at 7:00 this morning. He had A coffee and a postdate for breakfast. He started have some nausea before his oncology appointment and he was given sublingual Zofran with good result. He did go to his result at 9:30 this morning and he started developing nausea and subsequent he vomited in the doctor 's office. Patient was given another antiemetic and 2 L of IV fluids at the oncologist office. Patient was feeling better and his was driving him home and he developed another episode of nausea so they came to the ER for evaluation. The patient was seen in the emergency department and he has not had any vomiting since being in the emergency department. He has been given Zofran with good results. The patient would prefer not to be admitted the hospital and would like to go home. We discussed with the patient extensively about his nausea, vomiting. Discussed multiple medications that could help with him with his recurrent nausea vomiting. Both him and his are eager to try other medications as well as go home. They're notified if his symptoms return and come back to the hospital for reevaluation. CBC/BMP: 03/02/17 0613 03/02/17 0613 Significant Findings Laboratory Tests Test 02/28/17 15:09 02/28/17 15:30 03/01/17 06:35 03/02/17 06:13 Red Blood Count 4.06 MIL/MM3 (4.50-5.90) 3.61 MIL/MM3 (4.50-5.90) 4.35 MIL/MM3 (4.50-5.90) Hemoglobin 11.0 GM/DL (13.0-17.0) 9.9 GM/DL (13.0-17.0) 12.4 GM/DL (13.0-17.0) Hematocrit 33.8 % (39.0-51.0) 30.5 % (39.0-51.0) 36.6 % (39.0-51.0) Neutrophils (%) (Auto) 89.7 % (16.0-70.0) 77.7 % (16.0-70.0) 76.3 % (16.0-70.0) Lymphocytes # (Auto) 0.4 TH/MM3 (1.0-4.8) 0.7 TH/MM3 (1.0-4.8) Random Glucose 166 MG/DL (74-106) 139 MG/DL (74-106) 116 MG/DL (74-106) Sodium Level 135 MEQ/L (136-145) 134 MEQ/L (136-145) 135 MEQ/L (136-145) Estimat Glomerular Filtration Rate 75 ML/MIN (>89) 84 ML/MIN (>89) 77 ML/MIN (>89) Urine Ketones 40 mg/dL (NEG) Albumin 2.9 GM/DL (3.4-5.0) Potassium Level 3.4 MEQ/L (3.5-5.1) 3.0 MEQ/L (3.5-5.1) Monocytes (%) (Auto) 8.2 % (0.0-8.0) Basophils (%) (Auto) 2.7 % (0.0-2.0) Basophils # (Auto) 0.3 TH/MM3 (0-0.2) Chloride Level 97 MEQ/L (98-107) Imaging Last Impressions Head CT 03/02/17 0000 Signed Impressions: Service Date/Time: Thursday, March 02, 2017 17:19 - CONCLUSION: 1. Stable, mild chronic sinusitis in the right sphenoid. 2. Otherwise negative. Iggy Ho MD Abdomen/Pelvis CT 03/01/17 0000 Signed Impressions: Service Date/Time: Wednesday, March 01, 2017 16:00 - CONCLUSION: 1. Findings of worsening metastatic disease with multiple bony lytic lesions increasing in both size and number as detailed above. There appears to be a pathologic fracture of the posterior aspect of the right ninth rib with an associated 2.8 cm soft tissue mass. 2. Extensive varicosities predominantly in the right posterolateral aspect of the peritoneal cavity. 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 3. Left nephrectomy with stable soft tissue in the surgical bed. Stable cortical scarring and parenchymal cyst on the remaining right kidney. 4. Patchy air space disease posteriorly in the right lung base may represent early pneumonic infiltrate. Iggy Ho MD Abdomen X-Ray 03/01/17 0000 Signed Impressions: Service Date/Time: Friday, March 01, 2017 15:28 - CONCLUSION: Previously benign abdomen without obstruction or pneumoperitoneum. Iggy Ho MD PE at Discharge GENERAL: Well-developed, well-nourished, in no acute distress. alert and orientated HEENT: Head is normocephalic without any lesions or masses noted. Facial features are symmetric. Eyes: Extraocular muscles are intact. Conjunctivae were clear. NECK: Supple without any masses. Trachea midline no deviation. No JVD, CARDIAC: Regular rhythm, regular rate. S1/S2 are heard. No murmurs gallops or rubs. LUNGS: Clear to auscultation bilaterally. No wheeze, rhonchi or rales. No use of accessory muscles on inspiration or expiration. ABDOMEN: Soft, nontender. Nondistended. Bowel sounds heard in all 4 quadrants. No organomegaly or masses. Negative rebound, negative guarding EXTREMITIES: 3+ pitting edema noted bilateral lower extremities, pulses are equal bilaterally. No cyanosis or clubbing. Left medial ankle has dried wound with mild erythema around the edges NEUROLOGY: Mood and affect appear appropriate. Cranial nerves II through XII grossly intact. Moving all extremities, speech is clear Hospital Course 81 year-old male with known history of metastatic abdominal cancer who started having intractable nausea and vomiting when he was at the oncologist office on Friday. Patient was given IV fluids in the oncologist office and did not improve so he came to the hospital for evaluation. Patient was evaluated in emergency department and he was feeling much better. Plans were to discharge the patient if he tolerated dinner. However, patient had further episodes of nausea vomiting. Patient was placed in the hospital for observation. Patient did not tolerate any food yesterday. He was started on Phenergan, Marinol, Zofran. Patient started doing well in the last time he had any emesis was this morning at 4 AM. Patient has tolerated lunch and dinner. indicates that the patient had some episodes of not acting his normal self. CT scan was done of the brain which did not indicate any acute abnormality. After having CT scan patient was sitting and eating his dinner and was doing quite well. I reevaluated the patient at that time and he ate approximately a quarter of his dinner without any nausea or vomiting. states that his mentation is much improved. The patient states that he is very eager to go home and believes that he can be discharged and 17 seconds. is in agreement at this time. I notified them that I'll reevaluate them in one hour and if he is still feeling well enough to go home will plan discharge at that time. Pt Condition on Discharge: Good Discharge Disposition: Discharge Home Discharge Time: > 30 minutes Discharge Instructions DIET: Follow Instructions for: Heart Healthy Diet Activities you can perform: Regular-No Restrictions Follow up Referrals: Oncology - 1 Week PCP Follow-up - 2-3 Days New Medications: Dronabinol (Marinol) 2.5 Mg Cap 2.5 MG PO BID, #10 CAP 0 Refills Ondansetron Odt (Zofran Odt) 4 Mg Tab 4 MG SL Q6HR PRN for Nausea/Vomiting, #30 TAB 0 Refills Promethazine Supp (Phenergan Supp) 25 Mg Supp 25 MG RECTAL Q4H PRN for NAUSEA OR VOMITING for 7 Days, #42 SUPP 0 Refills Continued Medications: Amlodipine (Amlodipine) 5 Mg Tab 5 MG PO DAILY for Blood Pressure Management, #30 TAB 0 Refills Atorvastatin (Atorvastatin) 10 Mg Tab 10 MG PO HS for Cholesterol Management, #30 TAB 0 Refills Ezetimibe (Zetia) 10 Mg Tab 10 MG PO DAILY, #30 TAB 0 Refills Omeprazole (Omeprazole) 20 Mg Tab 20 MG PO DAILY, #30 TAB 0 Refills Oxycodone-Acetaminophen (Percocet) 10-325 mg Tab 1 TAB PO Q4H PRN for PAIN, #30 TAB 0 Refills Tramadol (Tramadol) 50 Mg Tab 50 MG PO Q4H PRN for PAIN, TAB 0 Refills Ortiz,Huy J. PA Mar 02, 2017 18:04
[2017-03-02] MEDS ORDERED: ENALAPRILAT 1.25 MG/ML VIAL IV PUSH PRN (19:15)
[2017-03-02 20:00] VITALS: BP 138/79; PULSE 90; RESP 17; TEMP 97.5; O2SAT 96
[2017-03-02] MEDS: amLODIPine BESYLATE 5 MG TAB PO SCH (20:31)
[2017-03-02] MEDS ORDERED: POTASSIUM CHLORIDE 20 MEQ CONTROLLED RELEASE TAB PO ONE (21:30)
[2017-03-02] MEDS: NS + KCL 20 MEQ INJ 1,000 ML IV SCH (21:49)
[2017-03-02 22:27] LABS: BICARBONATE 32.9 MEQ/L (21.0-32.0); CALCIUM 8.7 MG/DL (8.5-10.1); MAGNESIUM 1.7 MG/DL (1.5-2.5)
[2017-03-02 22:30] LABS: CREATININE 0.9 MG/DL (0.60-1.30)
[2017-03-03] VITALS: BP 130/82; PULSE 88; RESP 17; TEMP 97.9; O2SAT 95
[2017-03-03 00:39] LABS: FOLATE 9.9 NG/ML (3.1-17.5)
[2017-03-03 06:18] LABS: AUTOMATED NEUTROPHIL # 5.3 TH/MM3 (1.8-7.7); BASOPHIL % 0.2 % (0.0-2.0); EOSINOPHIL # 0.1 TH/MM3 (0-0.4); EOSINOPHIL % 0.9 % (0.0-4.0); HEMATOCRIT 33.8 % (39.0-51.0); HEMOGLOBIN 10.9 GM/DL (13.0-17.0); LYMPH % 15.4 % (9.0-44.0); LYMPHOCYTE # 1.1 TH/MM3 (1.0-4.8); MEAN CELL VOLUME 83.6 FL (80.0-100.0); MEAN CORPUSCULAR HEMOGLOBIN 26.8 PG (27.0-34.0); MEAN CORPUSCULAR HGB CONC 32.1 % (32.0-36.0); MEAN PLATELET VOLUME 7.8 FL (7.0-11.0); MONO % 9.2 % (0.0-8.0); MONOCYTE # 0.7 TH/MM3 (0-0.9); NEUT % 74.3 % (16.0-70.0); PLATELET COUNT 223 TH/MM3 (150-450); RED BLOOD COUNT 4.05 MIL/MM3 (4.50-5.90); RED CELL DISTRIBUTION WIDTH 14.6 % (11.6-17.2); WHITE BLOOD COUNT 7.2 TH/MM3 (4.0-11.0)
[2017-03-03] MEDS: amLODIPine BESYLATE 5 MG TAB PO SCH (07:59)
[2017-03-03 08:00] VITALS: BP 190/91; PULSE 74; RESP 20; TEMP 96.1; O2SAT 74
[2017-03-03] MEDS: SODIUM CHLORIDE 0.9% FLUSH 10 ML FLUSH IV FLUSH SCH (08:00)
[2017-03-03] MEDS: DOCUSATE SODIUM 50 MG/SENNA 8.6 MG TAB PO SCH (08:00)
[2017-03-03] MEDS: NS + KCL 20 MEQ INJ 1,000 ML IV SCH (08:01)
[2017-03-03 11:00] LABS: BICARBONATE 28.6 MEQ/L (21.0-32.0); CALCIUM 8.5 MG/DL (8.5-10.1)
[2017-03-03 11:04] LABS: CREATININE 0.74 MG/DL (0.60-1.30)
--- NOTE | 2017-03-03 11:26 | HHI.PR ---
Subjective Remarks Patient seen and examined today for follow-up on nausea and vomiting. Patient was planned for discharge yesterday, however indicated that the patient was not acting his normal self. Indicating that he may have been having hallucinations. When I evaluated the patient he appeared to be alert and orientated. He knew specifics about his admission, address, place. Patient remain in the hospital and had neurological workup performed with CT scan of the head, laboratory studies for any metabolic encephalopathy. Everything was unremarkable. This morning the patient was again completely alert and orientated. He is tolerating diet without any nausea or vomiting. Patient very eager to go home. Will plan discharge accordingly. Objective Vital Signs Date Time Temp Pulse Resp B/P (MAP) Pulse Ox O2 Delivery O2 Flow Rate FiO2 03/03/17 08:00 96.1 74 20 190/91 (124) 74 03/03/17 00:00 97.9 88 17 130/82 (98) 95 03/02/17 20:00 97.5 90 17 138/79 (98) 96 03/02/17 16:00 97.0 77 20 174/69 (104) 94 I/O 03/02/17 03/02/17 03/02/17 03/03/17 03/03/17 03/03/17 07:00 15:00 23:00 07:00 15:00 23:00 Intake Total 921 ml 725 ml 471 ml 654 ml 480 ml Output Total 2050 ml 950 ml 1000 ml Balance -1129 ml -225 ml 471 ml -346 ml 480 ml Intake Oral 0 ml 725 ml 60 ml IV Total 921 ml 471 ml 654 ml 420 ml Output Urine Total 2050 ml 950 ml 1000 ml # Voids 3 # Bowel Movements 1 Result Diagram: 03/03/17 0507 03/03/17 0507 Objective Remarks GENERAL: Well-developed, well-nourished, in no acute distress. alert and orientated HEENT: Head is normocephalic without any lesions or masses noted. Facial features are symmetric. Eyes: Extraocular muscles are intact. Conjunctivae were clear. NECK: Supple without any masses. Trachea midline no deviation. No JVD, CARDIAC: Regular rhythm, regular rate. S1/S2 are heard. No murmurs gallops or rubs. LUNGS: Clear to auscultation bilaterally. No wheeze, rhonchi or rales. No use of accessory muscles on inspiration or expiration. ABDOMEN: Soft, nontender. Nondistended. Bowel sounds heard in all 4 quadrants. No organomegaly or masses. Negative rebound, negative guarding EXTREMITIES: 3+ pitting edema noted bilateral lower extremities, pulses are equal bilaterally. No cyanosis or clubbing. Left medial ankle has dried wound with mild erythema around the edges NEUROLOGY: Mood and affect appear appropriate. Cranial nerves II through XII grossly intact. Moving all extremities, speech is clear A/P Assessment and Plan Nausea and vomiting, recurrent in a patient with known history of Metastatic renal cell carcinoma, resolved Discontinued Marinol 2.5 mg twice daily, Phenergan, Reglan due to possible change in mentation Continue diet Patient continue follow-up with oncology KUB flat and upright studies were unremarkable for any obstruction CT scan of the abdomen indicated worsening metastatic disease with more lytic lesions and possible pathological fracture of the ninth rib. Change in mentation, questionable hallucinations, resolved Patient is alert and orientated at this time, there is no indication from overnight nurse that patient had any other episodes Medications were held because of mentation CT of the brain did not indicate any acute abnormality Sedimentation rate, TSH, ammonia level, B12, folate were all unremarkable Developing right lung airspace disease, possible aspiration from recent nausea vomiting This abnormality was found on the abdominal CT Patient is asymptomatic at this time with out any fever, leukocytosis, respiratory symptoms Continue monitor and start antibiotics accordingly Hypertension Resume home medications DVT prevention Sequential compression devices Discharge Planning Discharge home in stable condition today, please refer to discharge summary from 03/02/17 Huy Ortiz Mar 03, 2017 11:26
[2017-03-03] MEDS ORDERED: POTASSIUM CHLORIDE 10 MEQ CONTROLLED RELEASE TAB PO ONE (11:30)
== END 2017-03-03 11:55 | disposition home or self-care (01) ==
LOC: PHED 14:19 → PHEDA 17:24 → PH3B 18:31
PROVIDERS: ADMIT Hospitalist; ATTEND Hospitalist
DX: D64.2 Secondary sideroblastic anemia due to drugs and toxins (principal); C79.51 Secondary malignant neoplasm of bone; R11.2 Nausea with vomiting, unspecified; K22.70 Barrett's esophagus without dysplasia; E78.5 Hyperlipidemia, unspecified; I10 Essential (primary) hypertension; Z86.711 Personal history of pulmonary embolism; Z86.718 Personal history of other venous thrombosis and embolism; Z87.891 Personal history of nicotine dependence; Z79.899 Other long term (current) drug therapy
CPT/HCPCS: 70450; 74020; 74176; 80048; 80053; 80307; 81001; 82140; 82607; 82746; 83735; 85025; 85652; 86592; 96361; 96374; 96375; 96376; 97162; 99285; G0378; G8987; G8988; J0780; J1100; J1200; J1626; J2405; J2550; J2765; J3480; J7030; J7040; Q0167; Q9963

== ENCOUNTER 2017-03-12 06:50 | Day surgery (SDC) | payer MEDICARE ==
[~2017-03-12] VITALS: Ht 175.3 cm; Wt 86.4 kg
[~2017-03-12 06:50] MED LIST changes: -CEPH250T PO; -EVEROLIMUS; -LENV18CA PO; +ZOFR4TAB3 SL
[2017-03-12 07:06] VITALS: BP 109/63; PULSE 90; RESP 20; TEMP 97.4; O2SAT 91
[2017-03-12] MEDS ORDERED: SODIUM CHLORIDE 0.9% 1000 ML IV SCH (07:45)
[2017-03-12] MEDS ORDERED: CHLORHEXIDINE GLUCONATE 2 % 1 PACK (2 CLOTHS) TOPICAL SCH (07:45)
[2017-03-12] MEDS ORDERED: MIDAZOLAM HCL 2 MG/2 ML VIAL ONE ×2 (08:29)
[2017-03-12] MEDS: ceFAZolin 2 GM PREMIX 50 ML - implanted port/tunneled catheter insertion IV SCH ×2 (08:33→09:12)
[2017-03-12] MEDS: VANCOMYCIN 1000 MG/NS 250 ML - implanted port/tunneled catheter IV SCH ×4 (08:33→09:12)
[2017-03-12] MEDS ORDERED: LIDOCAINE 1%/EPINEPHrine 1:100,000 SOLN 20 ML VIAL ONE (08:44)
--- NOTE | 2017-03-12 09:14 | PD.RAD ---
Post Procedure Progress Note Pre Procedure Diagnosis: (1) Renal adenocarcinoma Post Procedure Diagnosis: (1) Renal adenocarcinoma Procedure Date: Mar 12, 2017 Supervising Radiologist: Karlos Vanegas Proceduralist/Assist: Mckinley Hanna RT(R), RT Hawk(R) Anesthesia: Conscious Sedation Plan of Activity Patient to Unit: [facility] Patient Condition: Good See PACS Report for procedural detail/treatment Central Venous Access Device Procedure 1 Right Internal Jugular Infusaport Placement single lumen Karlos Vanegas MD Mar 12, 2017 09:14
[2017-03-12] MEDS ORDERED: SODIUM CHLORIDE 0.9% FLUSH 10 ML FLUSH IVF PRN (09:15)
[2017-03-12 09:20] VITALS: BP 132/64; PULSE 107; RESP 20; TEMP 97.9; O2SAT 93
--- NOTE | 2017-03-12 09:33 | RADRPT ---
EXAM DATE/TIME: 03/12/2017 08:20 [facility] COMPARISON: No previous studies available for comparison. INDICATIONS : Patient presents with renal cancer in need of port placement for chemotherapy treatment. MEDICAL HISTORY : Renal cancer and bone mets SURGICAL HISTORY : Kidney sx ENCOUNTER: Initial ACUITY: >1 year PAIN SCORE: 2/10 LOCATION: Lower [place]O TIME: 0.4 minutes IMAGE SERIES: 1 SEDATION TIME: 30 minutes ACCESS: Right internal jugular vein SEDATION: 1.) 4 mg midazolam (Versed) IV 2.) 200 mcg fentanyl (Sublimaze) IV Prophylactic antibiotics were administered with appropriate pre-procedure timing. Vancomycin within 2 hours of procedure, Ancef (or alternative) within 1 hour of procedure. DEVICE: 1. [address] [place] single lumen Smart port CT w/vortex PROCEDURE : 1. Continuous pulse oximetry and EKG monitoring. 2. Intravenous conscious sedation. 3. Ultrasound guidance for venous access. 4. Fluoroscopic guided implantable central venous port placement. The patient was placed supine. The neck was prepped in sterile fashion. Full sterile technique was u sed, including cap, mask, sterile gloves and gown, and a large sterile sheet. Hand hygiene and 2% ch lorhexidine Betadine was utilized per protocol for cutaneous antisepsis with appropriate dry time for site. Sterile gel and sterile probe cover were utilized for ultrasound guidance. The skin and sub cutaneous tissues were infiltrated with local anesthetic solution. Under direct ultrasound guidance, central venous access was accomplished in the targeted vessel. The ultrasound images depicting access guidance were stored and saved to PACS for permanent record. A s ubcutaneous pocket was created using blunt dissection. The port was introduced to the pocket. The c atheter tubing was fed through a subcutaneous tunnel to the venotomy site. The catheter tubing was c ut to a suitable length and then was introduced through a valved Peel-Away sheath and positioned with catheter tubing tip at the cavo-atrial junction level. The pocket incision was closed with subcutic ular Vicryl suture. Steri-Strips were applied. The port was flushed and locked with heparin solutio n per protocol. Sterile dressing was applied to the site. The patient tolerated the procedure well. Conscious sedation was performed with the prescribed dosages and duration as above in the presence of an independent trained radiology nurse to assist in the monitoring of the patient. EKG and oximetry remained stable throughout the procedure. The patient tolerated the procedure well and there were no complications. The patient was sent to post anesthesia recovery in stable condition. CONCLUSION: Uncomplicated ultrasound and fluoroscopic guided implanted central venous port catheter placement as described in detail above. An 8 [place] Power port was placed. Karlos Vanegas MD on March 12, 2017 at 9:32 Board Certified Radiologist. This report was verified electronically.
[2017-03-12 09:35] VITALS: BP 133/66; PULSE 105; RESP 20; O2SAT 92
[2017-03-12 10:05] VITALS: BP 135/65; PULSE 105; RESP 18; O2SAT 92
[2017-03-12 10:35] VITALS: BP 98/55; PULSE 95; RESP 20; O2SAT 93
[2017-03-12 11:05] VITALS: BP 105/56; PULSE 105; RESP 18; O2SAT 94
== END 2017-03-12 11:45 | disposition home or self-care (01) ==
LOC: HROP 06:50 → HRIP 06:54 → HROP 11:45
PROVIDERS: ATTEND Internal Medicine Hematology & Oncology
DX: C64.2 Malignant neoplasm of left kidney, except renal pelvis (principal); C79.51 Secondary malignant neoplasm of bone
CPT/HCPCS: 36561; 76937; 77001; 99152; 99153; C1788; J0690; J1642; J2250; J3010; J3370; J7030; J7050

== ENCOUNTER 2017-03-19 14:42 | Emergency (ER) | payer MEDICARE ==
[~2017-03-19] VITALS: Ht 170.2 cm; Wt 84.0 kg
[~2017-03-19 14:42] MED LIST changes: -PERC10TA27 PO
[2017-03-19 14:48] VITALS: BP 153/96; PULSE 89; RESP 16; TEMP 97.4; O2SAT 100
--- NOTE | 2017-03-19 15:23 | PD ---
HPI Chief Complaint: Back/ Neck Pain or Injury Time Seen by Provider: 15:06 Travel History International Travel<30 days: No Contact w/Intl Traveler<30days: No Traveled to known affect area: No History of Present Illness HPI This 81-year-old male is complaining of pain across his lower back. He has a history of renal cancer which is metastatic. He was here on February 12 of back pain. 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 He is getting chemotherapy here and also goes to [facility] for treatment. They're going to do a kyphoplasty on him on . He is not having any weakness or numbness. He has no trouble urinating. His has been giving him tramadol for pain today but is not helping much she does have prescription for oxycodone but it seems to cause a lot of vomiting. She has tried to give Zofran prevent the vomiting. 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 radiation to left hip-pain prior ) Neurologic: Yes ( states no neuro issues, did have kyphoplasty T7) Psychiatric: No Reproductive: No Respiratory: Yes Immunizations Current: Yes Migraines: No Radiation Therapy: Yes (5 LEFT HIP) Renal Failure: No Seizures: No Sickle Cell Disease: No Sleep Apnea: No Thyroid Disease: No Ulcer: No Past Surgical History Abdominal Surgery: Yes (LEFT NEPHRECTOMY AND LEFT RENAL VEIN REMOVAL ) AICD: No Arteriovenous Shunt: No Cardiac Surgery: Yes (LIGATION OF THE INFERIOR VENA CAVA ) Ear Surgery: No Endocrine Surgery: No Eye Surgery: No Genitourinary Surgery: No Gynecologic Surgery: No Insulin Pump: No Joint Replacement: No Neurologic Surgery: Yes (kyphoplasty) Oral Surgery: Yes (TONSILECTOMY ) Pacemaker: No Thoracic Surgery: Yes (VENA CAVA THROMBUS REMOVAL ) Tonsillectomy: Yes Other Surgery: Yes (LEFT NEPHRECTOMY, RENAL VEIN REMOVAL) Social History Alcohol Use: Yes (ONE DRINK DAILY) Tobacco Use: No (quit 4 years ago ) Substance Use: No Allergies-Medications (Allergen,Severity, Reaction): Coded Allergies: promethazine (Verified Allergy, Intermediate, Hallucinations, 03/19/17) Reported Meds & Prescriptions Reported Meds & Active Scripts Active Zofran Odt (Ondansetron Odt) 4 Mg Tab 4 Mg SL Q6HR PRN Reported Hydrocodone-Acetaminophen 5-325 mg Tab 1 Tab PO BID PRN Oxycodone-Acetaminophen 10-325 mg Tab 1 Tab PO Q6H PRN Oxycontin (Oxycodone HCl) 10 Mg Tab 20 Mg PO Q12HR Zetia (Ezetimibe) 10 Mg Tab 10 Mg PO DAILY Tramadol (Tramadol HCl) 50 Mg Tab 50 Mg PO Q4H PRN Amlodipine (Amlodipine Besylate) 5 Mg Tab 5 Mg PO DAILY Atorvastatin (Atorvastatin Calcium) 10 Mg Tab 10 Mg PO HS Omeprazole 20 Mg Tab 20 Mg PO DAILY Review of Systems General / Constitutional: No: Fever, Chills Eyes: No: Diploplia HENT: No: Headaches Cardiovascular: No: Chest Pain or Discomfort, Palpitations Respiratory: No: Cough, Shortness of Breath Gastrointestinal: No: Vomiting, Diarrhea Genitourinary: No: Urgency, Frequency Musculoskeletal: No: Myalgias Skin: No Rash Neurologic: No: Weakness, Dizziness Hematologic/Lymphatic: No: Easy Bruising Physical Exam Narrative GENERAL: Well-developed male. He is in moderate distress SKIN: Focused skin assessment warm/dry. HEAD: Atraumatic. Normocephalic. EYES: Pupils equal and round. No scleral icterus. No injection or drainage. ENT: No nasal bleeding or discharge. Mucous membranes pink and moist. NECK: Trachea midline. No JVD. CARDIOVASCULAR: Regular rate and rhythm. No murmur appreciated. RESPIRATORY: No accessory muscle use. Clear to auscultation. Breath sounds equal bilaterally. GASTROINTESTINAL: Abdomen soft, non-tender, nondistended. Hepatic and splenic margins not palpable. MUSCULOSKELETAL: No obvious deformities. No clubbing. No cyanosis. No edema. Does have some tenderness in the upper portion of the lumbar spine NEUROLOGICAL: Awake and alert. No obvious cranial nerve deficits. Motor grossly within normal limits. Normal speech. Sedation of the legs is intact PSYCHIATRIC: Appropriate mood and affect; insight and judgment normal. Data Data Last Documented VS Vital Signs Date Time Temp Pulse Resp B/P (MAP) Pulse Ox O2 Delivery O2 Flow Rate FiO2 03/19/17 14:48 97.4 89 16 153/96 (115) 100 Orders Orders Hydromorphone Pf Inj (Dilaudid Pf Inj) (03/19/17 15:30) Ondansetron Inj (Zofran Inj) (03/19/17 15:30) [facility] Medical Decision Making Medical Screen Exam Complete: Yes Emergency Medical Condition: Yes Medical Record Reviewed: Yes Differential Diagnosis Differential includes metastatic renal cancer, bony metastasis, Narrative Course Patient is known to have metastatic disease to the spine. There is no evidence by history or examination of cord compression at this time. We will attempt to control his pain. He was given Dilaudid intramuscular along with Zofran. His has 3 different pain pills. She has OxyContin 20, Percocet tens and Lortab 5's. I have explained the difference between the medications that I recommended that he take the OxyContin if possible as this will provide longer lasting relief Diagnosis Primary Impression: Back pain Qualified Codes: M54.5 - Low back pain Scripts Ondansetron (Zofran) 4 Mg Tab 4 MG PO Q6HR Y for NAUSEA OR VOMITING, #20 TAB 0 Refills Prov: Stanton Koehler MD 03/19/17 Ondansetron Odt (Zofran Odt) 4 Mg Tab 4 MG SL Q6HR Y for Nausea/Vomiting, #30 TAB 0 Refills Prov: Stanton Koehler MD 03/19/17 Disposition: 01 DISCHARGE HOME Condition: Stable Stanton Koehler MD Mar 19, 2017 15:23
[2017-03-19] MEDS ORDERED: ONDANSETRON HCL 4 MG/2 ML VIAL IM ONE (15:30)
[2017-03-19] MEDS ORDERED: HYDROmorphone HCL PF 1 MG/ML VIAL IM ONE (15:30)
[2017-03-19] MEDS ORDERED: OXYC-103 PO (15:54)
[2017-03-19] MEDS ORDERED: OXYC1TAB36 PO (15:57)
[2017-03-19] MEDS ORDERED: HYDR-3516 PO (15:57)
[2017-03-19] MEDS ORDERED: ZOFR4TAB PO (16:10)
[2017-03-19] MEDS ORDERED: ZOFR4TAB3 SL (16:10)
[2017-03-19 17:01] VITALS: BP 141/75
== END 2017-03-19 16:50 | disposition home or self-care (01) ==
LOC: PHED 14:42
DX: M54.5 Low back pain (principal)
CPT/HCPCS: 96372; 99284; J1170; J2405

== ENCOUNTER 2017-03-24 17:08 | Emergency (ER) | payer MEDICARE ==
[~2017-03-24] VITALS: Ht 172.7 cm; Wt 83.0 kg
[~2017-03-24 17:08] MED LIST changes: +HYDR-3516 PO; +OXYC-103 PO; +OXYC1TAB36 PO; +ZOFR4TAB PO
[2017-03-24 17:19] VITALS: BP 187/83; PULSE 71; RESP 18; TEMP 97.3; O2SAT 99
[2017-03-24] MEDS ORDERED: SODIUM CHLOR 0.9% 1000 ML INJ 1,000 ML IV ONE (18:00)
[2017-03-24] MEDS ORDERED: HYDROmorphone HCL PF 2 MG/ML VIAL IV PUSH ONE (18:00)
[2017-03-24] MEDS ORDERED: ONDANSETRON HCL 4 MG/2 ML VIAL IV PUSH ONE (18:00)
--- NOTE | 2017-03-24 18:47 | PD ---
HPI . Back pain and vomiting Chief Complaint: Back/ Neck Pain or Injury Time Seen by Provider: 17:46 Travel History International Travel<30 days: No Contact w/Intl Traveler<30days: No Traveled to known affect area: No History of Present Illness HPI Patient presents with chief complaint of low back pain and vomiting. 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 He reports consistent low back pain waxes and wanes. Pain is exacerbated by movement. The pain is severe. It has been unrelieved by oxycodone and tramadol. In addition, he has had 4-5 episodes of emesis today. The patient further reports that he is scheduled to be seen at the [facility] tomorrow. 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 radiation to left hip-pain prior ) Neurologic: Yes ( states no neuro issues, did have kyphoplasty T7) Psychiatric: No Reproductive: No Respiratory: Yes Immunizations Current: Yes Migraines: No Radiation Therapy: Yes (5 LEFT HIP) Renal Failure: No Seizures: No Sickle Cell Disease: No Sleep Apnea: No Thyroid Disease: No Ulcer: No Past Surgical History Abdominal Surgery: Yes (LEFT NEPHRECTOMY AND LEFT RENAL VEIN REMOVAL ) AICD: No Arteriovenous Shunt: No Cardiac Surgery: Yes (LIGATION OF THE INFERIOR VENA CAVA ) Ear Surgery: No Endocrine Surgery: No Eye Surgery: No Genitourinary Surgery: No Gynecologic Surgery: No Insulin Pump: No Joint Replacement: No Neurologic Surgery: Yes (kyphoplasty) Oral Surgery: Yes (TONSILECTOMY ) Pacemaker: No Thoracic Surgery: Yes (VENA CAVA THROMBUS REMOVAL ) Tonsillectomy: Yes Other Surgery: Yes (LEFT NEPHRECTOMY, RENAL VEIN REMOVAL) Social History Alcohol Use: No Tobacco Use: No (quit 4 years ago ) Substance Use: No Allergies-Medications (Allergen,Severity, Reaction): Coded Allergies: promethazine (Verified Allergy, Intermediate, Hallucinations, 03/24/17) Reported Meds & Prescriptions Reported Meds & Active Scripts Active Zofran (Ondansetron HCl) 4 Mg Tab 4 Mg PO Q6HR PRN Zofran Odt (Ondansetron Odt) 4 Mg Tab 4 Mg SL Q6HR PRN Zofran Odt (Ondansetron Odt) 4 Mg Tab 4 Mg SL Q6HR PRN Reported Hydrocodone-Acetaminophen 5-325 mg Tab 1 Tab PO BID PRN Oxycodone-Acetaminophen 10-325 mg Tab 1 Tab PO Q6H PRN Oxycontin (Oxycodone HCl) 10 Mg Tab 20 Mg PO Q12HR Zetia (Ezetimibe) 10 Mg Tab 10 Mg PO DAILY Tramadol (Tramadol HCl) 50 Mg Tab 50 Mg PO Q4H PRN Amlodipine (Amlodipine Besylate) 5 Mg Tab 5 Mg PO DAILY Atorvastatin (Atorvastatin Calcium) 10 Mg Tab 10 Mg PO HS Omeprazole 20 Mg Tab 20 Mg PO DAILY Review of Systems Except as stated in HPI: all other systems reviewed are Neg General / Constitutional: No: Fever, Chills Gastrointestinal: Positive: Nausea, Vomiting Musculoskeletal: Positive: Pain (low back pain) Neurologic: No: Weakness, Paresthesia, Incontinence Physical Exam Narrative GENERAL: Patient is lying in the room wearing a mask. SKIN: warm/dry. Good turgor and color. HEAD: Normocephalic. Atraumatic. EYES: Pupils equal and round. No scleral icterus. No injection or drainage. ENT: No nasal bleeding or discharge. Mucous membranes pink and moist. NECK: Trachea midline. Full range of motion without pain.. CARDIOVASCULAR: Regular rate and rhythm. Heart sounds normal. RESPIRATORY: No accessory muscle use. Clear to auscultation. Breath sounds equal bilaterally. GASTROINTESTINAL: Abdomen soft. Nontender. Bowel sounds present. Nondistended. MUSCULOSKELETAL: No obvious deformities. NEUROLOGICAL: Awake and alert. No obvious cranial nerve deficits. Motor grossly within normal limits. Normal speech. PSYCHIATRIC: Appropriate mood and affect; insight and judgment normal. Data Data Last Documented VS Vital Signs Date Time Temp Pulse Resp B/P (MAP) Pulse Ox O2 Delivery O2 Flow Rate FiO2 03/24/17 17:19 97.3 71 18 187/83 (117) 99 Orders Orders Sodium Chlor 0.9% 1000 Ml Inj (Ns 1000 M (03/24/17 18:00) Ondansetron Inj (Zofran Inj) (03/24/17 18:00) Hydromorphone Pf Inj (Dilaudid Pf Inj) (03/24/17 18:00) MDM Medical Decision Making Medical Screen Exam Complete: Yes Emergency Medical Condition: Yes Medical Record Reviewed: Yes (patient was seen here on 03/19 with virtually identical symptoms. He was successfully treated with Dilaudid and Zofran. He has had a recent MRI of his lumbar spine which shows the metastatic disease.) Differential Diagnosis Differential diagnosis includes but is not limited to muscular low back pain, DDD, spinal stenosis, epidural abscess, sciatica, kidney infection or stone. Narrative Course Patient presents with back pain and with vomiting. He has known metastatic disease to his lumbar spine. He states that he is here tonight for pain control and also for treatment of possible dehydration. I have ordered a liter of fluid along with Dilaudid and Zofran. I anticipate discharge. Diagnosis Primary Impression: Low back pain Qualified Codes: M54.5 - Low back pain; G89.29 - Other chronic pain Additional Impression: Nausea & vomiting Qualified Codes: R11.2 - Nausea with vomiting, unspecified Patient Instructions: Narcotic given in the ED Condition: Stable Grace Kendrick MD Mar 24, 2017 18:47
[2017-03-24 19:30] VITALS: RESP 14
--- NOTE | 2017-03-24 20:38 | PD ---
Physical Exam Date Seen by Provider: Mar 24, 2017 Time Seen by Provider: 20:36 Narrative Accepted in transfer of care from Dr. Kendrick Data Data Last Documented VS Vital Signs Date Time Temp Pulse Resp B/P (MAP) Pulse Ox O2 Delivery O2 Flow Rate FiO2 03/24/17 20:56 98.5 71 15 142/76 (98) 98 Orders Orders Sodium Chlor 0.9% 1000 Ml Inj (Ns 1000 M (03/24/17 18:00) Ondansetron Inj (Zofran Inj) (03/24/17 18:00) Hydromorphone Pf Inj (Dilaudid Pf Inj) (03/24/17 18:00) Ed Discharge Order (03/24/17 20:38) [facility] Medical Record Reviewed: Yes Supervised Visit with CARA: No Differential Diagnosis Accepted in transfer of care from Dr. Kendrick; please refer to her dictation Narrative Course Accepted in transfer of care from Dr. Kendrick; follow up on response to therapy @ 8:37 reports he feels markedly improved is desirous of being discharged to home and has appointment with his oncologist tomorrow. Port access was discontinued prior to heparin flush --- patient refused re- accessing of the port for heparin flush to be performed; aware of risk for thrombus formation and port occlusion. Diagnosis Primary Impression: Low back pain Qualified Codes: M54.5 - Low back pain; G89.29 - Other chronic pain Additional Impression: Nausea & vomiting Qualified Codes: R11.2 - Nausea with vomiting, unspecified Referrals: Oncologist 1 day as scheduled Patient Instructions: Narcotic given in the ED Med/Other Pt SpecificInfo: No Change to Meds Disposition: 01 DISCHARGE HOME Condition: Stable Darlin Ramos MD Mar 24, 2017 20:37
[2017-03-24 20:56] VITALS: BP 142/76; TEMP 98.5
== END 2017-03-24 21:26 | disposition home or self-care (01) ==
LOC: PHED 17:08
DX: C79.51 Secondary malignant neoplasm of bone (principal); M54.5 Low back pain; G89.29 Other chronic pain; R11.2 Nausea with vomiting, unspecified; E78.00 Pure hypercholesterolemia, unspecified; I10 Essential (primary) hypertension; Z85.528 Personal history of other malignant neoplasm of kidney; Z87.891 Personal history of nicotine dependence
CPT/HCPCS: 96361; 96374; 96375; 99284; J1170; J2405; J7030

== ENCOUNTER 2017-04-01 14:41 | Emergency (ER) | payer MEDICARE ==
[2017-04-01 14:58] VITALS: BP 175/87; PULSE 76; RESP 20; TEMP 97.3; O2SAT 99
[2017-04-01] MEDS ORDERED: IBUP-1129 (15:14)
[2017-04-01] MEDS ORDERED: HYDROmorphone HCL PF 2 MG/ML VIAL IV PUSH ONE (16:00)
[2017-04-01] MEDS ORDERED: SODIUM CHLOR 0.9% 1000 ML INJ 1,000 ML IV ONE (16:00)
[2017-04-01] MEDS ORDERED: ONDANSETRON HCL 4 MG/2 ML VIAL IV PUSH ONE (16:00)
--- NOTE | 2017-04-01 16:05 | PD ---
HPI Chief Complaint: Back/ Neck Pain or Injury Time Seen by Provider: 15:39 Travel History International Travel<30 days: No Contact w/Intl Traveler<30days: No Traveled to known affect area: No History of Present Illness HPI This 81-year-old male is complaining of severe back pain. This gentleman has a history of kidney cancer which is metastatic to bones. He is known to have disease in his lumbar spine. Last he was at [facility] and had a kyphoplasty at L1-L2 and L3. He went home on Friday and he seemed okay on Friday. Friday he had increasing pain and called him to get additional pain medication. Friday and Friday he was not too bad but this morning is waking up he said increasing pain in his back which has been quite severe. He has vomited twice which she attributes to the pain. He has not noted any numbness or weakness of his legs. He is also getting chemotherapy through Dr. Delarosa. 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 radiation to left hip-pain prior ) Psychiatric: No Reproductive: No Respiratory: Yes Immunizations Current: Yes Migraines: No Radiation Therapy: Yes (5 LEFT HIP) Renal Failure: No Seizures: No Sickle Cell Disease: No Sleep Apnea: No Thyroid Disease: No Ulcer: No Tetanus Vaccination: > 5 Years Influenza Vaccination: Yes Past Surgical History Abdominal Surgery: Yes (LEFT NEPHRECTOMY AND LEFT RENAL VEIN REMOVAL ) AICD: No Arteriovenous Shunt: No Cardiac Surgery: Yes (LIGATION OF THE INFERIOR VENA CAVA ) Ear Surgery: No Endocrine Surgery: No Eye Surgery: No Genitourinary Surgery: No Gynecologic Surgery: No Insulin Pump: No Joint Replacement: No Neurologic Surgery: Yes (kyphoplasty) Oral Surgery: Yes (TONSILECTOMY ) Pacemaker: No Thoracic Surgery: Yes (VENA CAVA THROMBUS REMOVAL ) Tonsillectomy: Yes Other Surgery: Yes (LEFT NEPHRECTOMY, RENAL VEIN REMOVAL) Social History Alcohol Use: No Tobacco Use: No (quit 4 years ago ) Substance Use: No Allergies-Medications (Allergen,Severity, Reaction): Coded Allergies: promethazine (Verified Allergy, Intermediate, Hallucinations, 04/01/17) Reported Meds & Prescriptions Reported Meds & Active Scripts Active Zofran (Ondansetron HCl) 4 Mg Tab 4 Mg PO Q6HR PRN Reported Motrin Ib (Ibuprofen) 200 Mg Tablet Hydrocodone-Acetaminophen 5-325 mg Tab 1 Tab PO BID PRN Oxycodone-Acetaminophen 10-325 mg Tab 1 Tab PO Q6H PRN Oxycontin (Oxycodone HCl) 10 Mg Tab 20 Mg PO Q12HR Zetia (Ezetimibe) 10 Mg Tab 10 Mg PO DAILY Tramadol (Tramadol HCl) 50 Mg Tab 50 Mg PO Q4H PRN Amlodipine (Amlodipine Besylate) 5 Mg Tab 5 Mg PO DAILY Atorvastatin (Atorvastatin Calcium) 10 Mg Tab 10 Mg PO HS Omeprazole 20 Mg Tab 20 Mg PO DAILY Review of Systems General / Constitutional: No: Fever, Chills Eyes: No: Diploplia Cardiovascular: No: Chest Pain or Discomfort, Palpitations Respiratory: No: Cough, Shortness of Breath Gastrointestinal: Positive: Nausea, Vomiting Genitourinary: No: Urgency, Frequency Musculoskeletal: Positive: Pain, No: Myalgias Skin: No Rash, No Itching Psychiatric: No: Anxiety Endocrine: No: Heat Intolerance Hematologic/Lymphatic: No: Easy Bruising Physical Exam Narrative GENERAL: Well-developed male. He appears very uncomfortable with this pain] SKIN: Focused skin assessment warm/dry. HEAD: Atraumatic. Normocephalic. EYES: Pupils equal and round. No scleral icterus. No injection or drainage. ENT: No nasal bleeding or discharge. Mucous membranes pink and moist. NECK: Trachea midline. No JVD. CARDIOVASCULAR: Regular rate and rhythm. No murmur appreciated. RESPIRATORY: No accessory muscle use. Clear to auscultation. Breath sounds equal bilaterally. GASTROINTESTINAL: Abdomen soft, non-tender, nondistended. Hepatic and splenic margins not palpable. MUSCULOSKELETAL: No obvious deformities. No clubbing. No cyanosis. No edema. NEUROLOGICAL: Awake and alert. No obvious cranial nerve deficits. Motor grossly within normal limits. Normal speech. For plasty wounds are visible and did not show any evidence of infection. He has tenderness of the lower lumbar spine. Sensation of the feet is intact. He has good strength in plantar and dorsiflexion of the foot PSYCHIATRIC: Appropriate mood and affect; insight and judgment normal. Data Data Last Documented VS Vital Signs Date Time Temp Pulse Resp B/P (MAP) Pulse Ox O2 Delivery O2 Flow Rate FiO2 04/01/17 14:58 97.3 76 20 175/87 (116) 99 Orders Orders Complete Blood Count With Diff (04/01/17 15:52) Basic Metabolic Panel (Bmp) (04/01/17 15:52) Sodium Chlor 0.9% 1000 Ml Inj (Ns 1000 M (04/01/17 16:00) Ondansetron Inj (Zofran Inj) (04/01/17 16:00) Iv Access Insert/Monitor (04/01/17 15:52) Hydromorphone Pf Inj (Dilaudid Pf Inj) (04/01/17 16:00) MDM Medical Decision Making Medical Screen Exam Complete: Yes Emergency Medical Condition: Yes Medical Record Reviewed: Yes Differential Diagnosis Differential includes metastatic disease to bone, compression fracture. Narrative Course I discussed the case with Dr. Benavidez who is the patient's neurooncologist at [facility]. He recommends that we obtain an MRI. He is concerned patient may have developed new compression fracture or a progression of his disease Stanton Koehler MD Apr 01, 2017 16:05
[2017-04-01 16:17] LABS: AUTOMATED NEUTROPHIL # 3.6 TH/MM3 (1.8-7.7); BASOPHIL % 0.1 % (0.0-2.0); EOSINOPHIL # 0.1 TH/MM3 (0-0.4); EOSINOPHIL % 1.6 % (0.0-4.0); HEMATOCRIT 30.2 % (39.0-51.0); HEMO FLAGS DIFF FINAL; LYMPH % 15.3 % (9.0-44.0); LYMPHOCYTE # 0.8 TH/MM3 (1.0-4.8); MEAN CELL VOLUME 84.8 FL (80.0-100.0); MEAN CORPUSCULAR HEMOGLOBIN 27.2 PG (27.0-34.0); MEAN CORPUSCULAR HGB CONC 32.1 % (32.0-36.0); MONO % 10.4 % (0.0-8.0); NEUT % 72.6 % (16.0-70.0); PLATELET COUNT 202 TH/MM3 (150-450); RED BLOOD COUNT 3.56 MIL/MM3 (4.50-5.90); RED CELL DISTRIBUTION WIDTH 17.6 % (11.6-17.2)
[2017-04-01 16:25] LABS: POTASSIUM 3.2 MEQ/L (3.5-5.1)
[2017-04-01 16:28] LABS: BICARBONATE 25.7 MEQ/L (21.0-32.0)
[2017-04-01 17:25] VITALS: BP 126/70; PULSE 81; RESP 16; O2SAT 92
[2017-04-01] MEDS ORDERED: GADODIAMIDE PF 287 MG/ML 5 ML VIAL (for RAD MRI) IV PUSH ONE (19:00)
[2017-04-01 19:44] VITALS: BP 135/65; PULSE 84; RESP 16; O2SAT 92
--- NOTE | 2017-04-01 20:45 | RADRPT ---
EXAM DATE/TIME: 04/01/2017 18:19 [facility] COMPARISON: No previous studies available for comparison. INDICATIONS : Pain. History of renal ca. CONTRAST: 15 cc Omniscan (gadodiamide) IV MEDICAL HISTORY : Deep venous thrombosis. Renal calculi. Metastatic, bone. Renal ca. SURGICAL HISTORY : Nephrectomy, left. Kyphoplasty t7 ENCOUNTER: Subsequent ACUITY: 2 weeks PAIN SCORE: 4/10 LOCATION: back TECHNIQUE: Multiplanar multisequence MRI of the thoracic spine was performed. FINDINGS: Metastatic disease is noted in the thoracic spine. Enhancing lesion at L1 and L2 not associated with soft tissue mass or extension into the spinal canal. There is an enhancing metastatic lesion at T7 ve rtebral body with mild compression fracture but no significant retropulsion. There are enhancing metastases to the posterior aspect of T11 and T12 vertebral bodies with extension into the spinal canal resulting in a moderate stenosis at T11 and mild canal stenosis at T12. T11 le ekaterina is associated with mild cord compression. No significant subluxation. CONCLUSION: 1. Multiple metastatic lesions to the thoracic spine. At T11 and T12 these metastatic lesions extend posteriorly into the spinal canal resulting in a moderate stenosis at T11 and a mild stenosis at T12. See above discussion. Syed Sykes MD on April 01, 2017 at 20:39 Board Certified Radiologist. This report was verified electronically.
--- NOTE | 2017-04-01 20:50 | RADRPT ---
EXAM DATE/TIME: 04/01/2017 18:19 [facility] COMPARISON: MRI LUMBAR SPINE W & W/O CONTRAST, February 12, 2017, 12:35. INDICATIONS : Pain. History of renal ca. CONTRAST: 15 cc Omniscan (gadodiamide) IV MEDICAL HISTORY : Renal calculi. Metastatic, bone. Renal ca. SURGICAL HISTORY : Nephrectomy, left. ENCOUNTER: Subsequent ACUITY: 1 week PAIN SCORE: 4/10 LOCATION: back TECHNIQUE: Multiplanar multisequence MRI of the lumbar spine was performed with and without contrast. FINDINGS: Comparison is February 12. Again seen is enhancing metastatic disease in the lumbar spine at every lev el except L5. Metastatic disease has worsened since February 12. Mild compression deformities of L1, L 2 and L3 are present. At L1 there is increasing soft tissue encroachment on the right lateral recess with moderate stenosis. No significant stenosis at L2. At L3 there is some extension into the spinal canal with mild lateral recess stenosis predominantly o n the right. At L4 there is increasing soft tissue extension into the spinal canal with moderate AP canal stenosis and right greater than left lateral recess stenosis. CONCLUSION: 1. Worsening metastatic disease to the lumbar spine. Findings most severe at L4 where there is modera te AP canal and moderate to severe right lateral recess stenosis. See above discussion. Syed Sykes MD on April 01, 2017 at 20:44 Board Certified Radiologist. This report was verified electronically.
--- NOTE | 2017-04-01 21:08 | PD ---
Data Data Last Documented VS Vital Signs Date Time Temp Pulse Resp B/P (MAP) Pulse Ox O2 Delivery O2 Flow Rate FiO2 04/01/17 19:45 84 16 04/01/17 19:44 135/65 (88) 92 Room Air 04/01/17 14:58 97.3 Orders Orders Complete Blood Count With Diff (04/01/17 15:52) Basic Metabolic Panel (Bmp) (04/01/17 15:52) Sodium Chlor 0.9% 1000 Ml Inj (Ns 1000 M (04/01/17 16:00) Ondansetron Inj (Zofran Inj) (04/01/17 16:00) Iv Access Insert/Monitor (04/01/17 15:52) Hydromorphone Pf Inj (Dilaudid Pf Inj) (04/01/17 16:00) Mri L Spine W&W/O Contrast (04/01/17 ) Mri T Spine W & W/O Contrast (04/01/17 ) Gadodiamide Pf Inj (Omniscan Pf Inj) (04/01/17 19:00) Labs Laboratory Tests Test 04/01/17 16:10 White Blood Count 5.0 TH/MM3 Red Blood Count 3.56 MIL/MM3 Hemoglobin 9.7 GM/DL Hematocrit 30.2 % Mean Corpuscular Volume 84.8 FL Mean Corpuscular Hemoglobin 27.2 PG Mean Corpuscular Hemoglobin Concent 32.1 % Red Cell Distribution Width 17.6 % Platelet Count 202 TH/MM3 Mean Platelet Volume 7.0 FL Neutrophils (%) (Auto) 72.6 % Lymphocytes (%) (Auto) 15.3 % Monocytes (%) (Auto) 10.4 % Eosinophils (%) (Auto) 1.6 % Basophils (%) (Auto) 0.1 % Neutrophils # (Auto) 3.6 TH/MM3 Lymphocytes # (Auto) 0.8 TH/MM3 Monocytes # (Auto) 0.5 TH/MM3 Eosinophils # (Auto) 0.1 TH/MM3 Basophils # (Auto) 0.0 TH/MM3 CBC Comment DIFF FINAL Differential Comment Blood Urea Nitrogen 14 MG/DL Creatinine 0.86 MG/DL Random Glucose 113 MG/DL Calcium Level 8.5 MG/DL Sodium Level 137 MEQ/L Potassium Level 3.2 MEQ/L Chloride Level 103 MEQ/L Carbon Dioxide Level 25.7 MEQ/L Anion Gap 8 MEQ/L Estimat Glomerular Filtration Rate 86 ML/MIN MDM Supervised Visit with CARA: No Narrative Course The patient was initially evaluated by the previous provider and signed out to me at the beginning of my shift pending labs, MRI of the T-spine and L-spine, and disposition. See his note for further details. Briefly this is a 81-year-old male with history of metastatic renal cell carcinoma who underwent kyphoplasty on of last week by Dr. Benavidez in [place]. The patient is presenting with increasing pain to his mid and lower back. He does not have any weakness. No urinary or bowel incontinence or retention. Dr. Benavidez was contacted by the previous provider who recommended MRIs. Patient was given a dose of Dilaudid. Labs reviewed and shows slight hypokalemia and slight anemia which is around the patient's baseline anemia. MRI T-spine: CONCLUSION: 1. Multiple metastatic lesions to the thoracic spine. At T11 and T12 these metastatic lesions extend posteriorly into the spinal canal resulting in a moderate stenosis at T11 and a mild stenosis at T12. See above discussion. MRI L-spine: CONCLUSION: 1. Worsening metastatic disease to the lumbar spine. Findings most severe at L4 where there is moderate AP canal and moderate to severe right lateral recess stenosis. See above discussion. Patient and the patient's were made aware of all findings. Again the patient states he feels significantly improved after receiving Dilaudid. He is currently pain-free. He has no motor deficits on exam. He has not had any urinary or bowel incontinence or retention. He prefers to be discharged home if at all possible. Case discussed with the patient's neurosurgeon Dr. Benavidez who recommends that the patient follow-up in his office/clinic in 2 days on . Patient is happy with this plan. He was advised on when to return to the emergency department. He verbalizes understanding and agreement with plan. Diagnosis Primary Impression: Back pain Qualified Codes: M54.5 - Low back pain Additional Impressions: Spinal stenosis Qualified Codes: M48.05 - Spinal stenosis, thoracolumbar region Metastatic disease Referrals: Ramesh Benavidez MD 2 days Additional Instruction: Follow-up with Dr. Benavidez in 2 days in his clinic on . Return to the emergency department for worsening symptoms or any other concerns as discussed. Disposition: 01 DISCHARGE HOME Condition: Stable Ravinder Lara N MD Apr 01, 2017 21:08
[2017-04-01 21:20] VITALS: BP 132/73; PULSE 79; RESP 16; O2SAT 92
== END 2017-04-01 21:31 | disposition home or self-care (01) ==
LOC: PHED 14:41
DX: C64.9 Malignant neoplasm of unspecified kidney, except renal pelvis (principal); C79.51 Secondary malignant neoplasm of bone; M54.5 Low back pain; M48.05 Spinal stenosis, thoracolumbar region; E78.00 Pure hypercholesterolemia, unspecified; K21.9 Gastro-esophageal reflux disease without esophagitis; I10 Essential (primary) hypertension; Z87.891 Personal history of nicotine dependence
CPT/HCPCS: 72157; 72158; 80048; 85025; 96361; 96374; 96375; 99285; A9579; J1170; J2405; J7030

== ENCOUNTER 2017-04-15 03:02 | Emergency (ER) | payer MEDICARE ==
[~2017-04-15] VITALS: Ht 170.2 cm; Wt 90.0 kg
[~2017-04-15 03:02] MED LIST changes: +CEPH250T PO; +DRON2.5 PO; +EVEROLIMUS; +IBUP-1129; +LENV18CA PO; +PERC10TA27 PO; +PROM1SUP7 RECTAL
[2017-04-15 03:12] VITALS: BP 171/103; PULSE 78; RESP 18; TEMP 97.9; O2SAT 95
[2017-04-15 03:39] VITALS: BP 171/103; PULSE 78; RESP 18; TEMP 97.9; O2SAT 95
[2017-04-15] MEDS ORDERED: DILA4TAB10 PO (03:53)
[2017-04-15] MEDS ORDERED: LIDO1PAD52 TOPICAL (03:53)
[2017-04-15] MEDS ORDERED: PRED20 PO (03:53)
[2017-04-15] MEDS ORDERED: HYDROmorphone HCL PF 2 MG/ML VIAL IV PUSH ONE (04:00)
[2017-04-15] MEDS ORDERED: ONDANSETRON HCL 4 MG/2 ML VIAL IV ONE (04:00)
[2017-04-15 05:12] VITALS: BP 140/76; PULSE 84; RESP 14; O2SAT 95
--- NOTE | 2017-04-15 06:03 | PD ---
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 He is being treated at [facility] for radiation and has an appointment later on today. The pain medications are not working. He takes large amounts of Dilaudid-4 mg every 4 hours for pain management. He does not want to go in a hospice situation. He is not nauseated either before or after the Dilaudid. 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 radiation to left hip-pain prior ) Psychiatric: No Reproductive: No Respiratory: Yes Immunizations Current: Yes Migraines: No Radiation Therapy: Yes (5 LEFT HIP) Renal Failure: No Seizures: No Sickle Cell Disease: No Sleep Apnea: No Thyroid Disease: No Ulcer: No Tetanus Vaccination: Unknown ?: Not Past Surgical History Abdominal Surgery: Yes (LEFT NEPHRECTOMY AND LEFT RENAL VEIN REMOVAL ) AICD: No Arteriovenous Shunt: No Cardiac Surgery: Yes (LIGATION OF THE INFERIOR VENA CAVA ) Ear Surgery: No Endocrine Surgery: No Eye Surgery: No Genitourinary Surgery: No Gynecologic Surgery: No Insulin Pump: No Joint Replacement: No Neurologic Surgery: Yes (kyphoplasty) Oral Surgery: Yes (TONSILECTOMY ) Pacemaker: No Thoracic Surgery: Yes (VENA CAVA THROMBUS REMOVAL ) Tonsillectomy: Yes Other Surgery: Yes (LEFT NEPHRECTOMY, RENAL VEIN REMOVAL) Social History Alcohol Use: No Tobacco Use: No (quit 4 years ago ) Substance Use: No Allergies-Medications (Allergen,Severity, Reaction): Coded Allergies: promethazine (Verified Allergy, Intermediate, Hallucinations, 04/15/17) Reported Meds & Prescriptions Reported Meds & Active Scripts Active Zofran (Ondansetron HCl) 4 Mg Tab 4 Mg PO Q6HR PRN Reported Lidocaine Patch 12 HR (Lidocaine) 5 % Patch 1 Patch TOPICAL DAILY Remove patch after 12 hours Prednisone 20 Mg Tab 20 Mg PO DIRECTED 40 MG twice a day x 3 days, then 20 MG daily x 3 days, then 10 MG daily x 3 days Dilaudid (Hydromorphone HCl) 4 Mg Tab 4 Mg PO Q4H PRN Zetia (Ezetimibe) 10 Mg Tab 10 Mg PO DAILY Amlodipine (Amlodipine Besylate) 5 Mg Tab 5 Mg PO DAILY Atorvastatin (Atorvastatin Calcium) 10 Mg Tab 10 Mg PO HS Omeprazole 20 Mg Tab 20 Mg PO DAILY Physical Exam Narrative GENERAL: Well-nourished, well-developed patient in severe distress with his pain. His vital signs initially were 171/103. After the Dilaudid it was 140/ 76. He will answer questions quickly and appropriately. SKIN: Focused skin assessment warm/dry. HEAD: Normocephalic. EYES: No scleral icterus. No injection or drainage. NECK: Supple, trachea midline. No JVD or lymphadenopathy. There is no meningismus present. CARDIOVASCULAR: Regular rate and rhythm without murmurs, gallops, or rubs. RESPIRATORY: Breath sounds equal bilaterally. No accessory muscle use. GASTROINTESTINAL: Abdomen soft, non-tender, nondistended. No guarding or rebound is present. MUSCULOSKELETAL: No cyanosis, or edema. BACK: Nontender without obvious deformity. No CVA tenderness. Data Data Last Documented VS Vital Signs Date Time Temp Pulse Resp B/P (MAP) Pulse Ox O2 Delivery O2 Flow Rate FiO2 04/15/17 05:12 84 14 140/76 (97) 95 Room Air 04/15/17 03:39 97.9 Orders Orders Hydromorphone Pf Inj (Dilaudid Pf Inj) (04/15/17 04:00) Ondansetron Inj (Zofran Inj) (04/15/17 04:00) Ed Discharge Order (04/15/17 05:55) MDM Medical Decision Making Medical Screen Exam Complete: Yes Emergency Medical Condition: Yes Medical Record Reviewed: Yes Differential Diagnosis Cancer pain, new pain not related to cancer Narrative Course The patient apparently has a progressive pain from his cancer and this is apparently an expected increase in his cancer pain. He will be seen at [facility] later on today. He was given 2 mg of Dilaudid IV which resolved the pain and he fell asleep. His oximetry was good and his blood pressure is normal after the IV Dilaudid. He will be discharged at this time to go to [facility] when his arrives. Diagnosis Primary Impression: Cancer associated pain Additional Instructions: Do not miss your appointment at [facility] today. You may wish to drink some Gatorade to keep well hydrated. Med/Other Pt SpecificInfo: No Change to Meds Disposition: 01 DISCHARGE HOME Condition: Stable Stepan Ortiz MD Apr 15, 2017 06:02
[2017-04-15 06:36] VITALS: BP 151/79; RESP 14; TEMP 98.4
== END 2017-04-15 06:55 | disposition home or self-care (01) ==
LOC: PHED 03:02
DX: G89.3 Neoplasm related pain (acute) (chronic) (principal); C41.2 Malignant neoplasm of vertebral column; E78.00 Pure hypercholesterolemia, unspecified; K21.9 Gastro-esophageal reflux disease without esophagitis; I10 Essential (primary) hypertension; Z86.718 Personal history of other venous thrombosis and embolism; Z87.442 Personal history of urinary calculi; Z79.899 Other long term (current) drug therapy; Z88.8 Allergy status to other drugs, medicaments and biological substances
CPT/HCPCS: 96374; 96375; 99284; J1170; J1642; J2405